=== PATIENT | male | born 1960 | race Caucasian/White ===

== ENCOUNTER → 2016-04-02 | Outpatient (CLI) | payer OTHER ==
[~2016-04-02] MED LIST: ASPI-232 PO; CETI10TA84 PO; DYZ PO; GLC500 PO; LISI-725 PO; METO1TAB69 PO; SIMV80TA2 PO
[2016-04-02 17:42] LABS: ALT/SGPT 31 U/L (12-78); BLOOD UREA NITROGEN 15 mg/dl (7-18); BUN/CREATININE RATIO 19.1 (10-20); CALCIUM 9.2 mg/dl (8.5-10.1); CARBON DIOXIDE 26 mmol/L (21-32); CHLORIDE 104 mmol/L (98-107); CHOLESTEROL 163 mg/dl (0-200); CREATININE 0.78 mg/dl (0.60-1.40); GLUCOSE 99 mg/dl (70-99); POTASSIUM 4.2 mmol/L (3.5-5.1); SODIUM 140 mmol/L (136-145); TRIGLYCERIDES 129 mg/dl (0-150); VERY LOW DENSITY LIPOPROT CALC 26 mg/dl
[2016-04-02 17:44] LABS: ALB/GLOB RATIO 1.4 (0.9-2); ALKALINE PHOSPHATASE 67 U/L (45-117); AST/SGOT 14 U/L (15-37); HDL CHOLESTEROL 55 mg/dl; LDL CHOLESTEROL CALCULATED 82 mg/dl
[2016-04-02 18:02] LABS: RATIO 11.4 mcg/mg (0-30.0)
[2016-04-03 06:12] LABS: ESTIMATED AVERAGE GLUCOSE 131 mg/dl; HA1C FLAG Normal (Normal)
== END | disposition home or self-care (01) ==
LOC: C.LABPVFM 12:59
PROVIDERS: ATTEND Family Medicine
DX: Z00.00 Encounter for general adult medical examination without abnormal findings (principal); Z12.11 Encounter for screening for malignant neoplasm of colon; I10 Essential (primary) hypertension; E78.5 Hyperlipidemia, unspecified; E11.9 Type 2 diabetes mellitus without complications; J30.9 Allergic rhinitis, unspecified

== ENCOUNTER → 2016-04-09 | Outpatient (CLI) | payer OTHER ==
--- NOTE | 2016-04-09 11:07 | DIAGNOSTIC IMAGING REPORT ---
RIGHT KNEE 3 VIEWS CLINICAL HISTORY: Bilateral knee [id number] Right pain COMPARISON: None. DISCUSSION: Considerable degenerative change all major joint spaces. This is particularly prominent involving the patellofemoral and medial joint compartment regions. Several synovial calcifications are present. There is a very small joint effusion. Mild degenerative changes lateral joint compartment. Mild reactive osteophytic change throughout all major joint compartments. There is no evidence for soft tissue swelling. IMPRESSION: Significant degenerative change primarily of the medial and patellofemoral joint compartments. Very small joint effusion. Electronically signed by: Fidencio Escobedo M.D. 04/09/2016 11:05 AM Dictated Date/Time: 04/09/2016 11:04 AM
--- NOTE | 2016-04-09 11:11 | DIAGNOSTIC IMAGING REPORT ---
KNEE 3 VIEWS left CLINICAL HISTORY: BILATERAL KNEE PAIN pain COMPARISON: None. DISCUSSION: Moderate degenerative change medial as well as patellofemoral joint compartments. Subtle cortical step-off medial tibial plateau at its extreme medial aspect. Margins are potentially sclerotic which may indicate old posttraumatic change. No significant joint effusion. No fat fluid level. There is no evidence for soft tissue swelling. IMPRESSION: 1. Small cortical step-off medial tibial plateau of indeterminate age. 2. Mild degenerative change medial and patellofemoral joint compartments. 3. If further evaluation is required from a clinical standpoint, CT study or MRI of the left knee is suggested Electronically signed by: Fidencio Escobedo M.D. 04/09/2016 11:09 AM Dictated Date/Time: 04/09/2016 11:06 AM
== END | disposition home or self-care (01) ==
LOC: C.RADPV 10:26
PROVIDERS: ATTEND Family Medicine
DX: M25.561 Pain in right knee (principal); M25.562 Pain in left knee

== ENCOUNTER → 2016-10-29 | Outpatient (CLI) | payer OTHER ==
[2016-10-29 12:37] LABS: ALT/SGPT 19 U/L (12-78); AST/SGOT 12 U/L (15-37); BLOOD UREA NITROGEN 14 mg/dl (7-18); BUN/CREATININE RATIO 16.6 (10-20); CALCIUM 8.8 mg/dl (8.5-10.1); CARBON DIOXIDE 27 mmol/L (21-32); CHLORIDE 110 mmol/L (98-107); CHOLESTEROL 202 mg/dl (0-200); CREATININE 0.85 mg/dl (0.60-1.40); GLUCOSE 100 mg/dl (70-99); POTASSIUM 4.2 mmol/L (3.5-5.1); SODIUM 142 mmol/L (136-145); TRIGLYCERIDES 141 mg/dl (0-150); VERY LOW DENSITY LIPOPROT CALC 28 mg/dl
[2016-10-29 12:44] LABS: ALB/GLOB RATIO 1.3 (0.9-2); ALKALINE PHOSPHATASE 64 U/L (45-117); CHOLESTEROL/HDL RATIO 4.2; HDL CHOLESTEROL 48 mg/dl; LDL CHOLESTEROL CALCULATED 126 mg/dl
[2016-10-29 12:58] LABS: ESTIMATED AVERAGE GLUCOSE 123 mg/dl; HA1C FLAG Normal (Normal)
== END | disposition home or self-care (01) ==
LOC: C.LABPVFM 09:59
PROVIDERS: ATTEND Family Medicine
DX: E78.5 Hyperlipidemia, unspecified (principal); E11.9 Type 2 diabetes mellitus without complications; I10 Essential (primary) hypertension

== ENCOUNTER → 2017-05-20 | Outpatient (CLI) | payer OTHER ==
[~2017-05-20] MED LIST changes: +METO100T44 PO; -METO1TAB69 PO
[2017-05-20 13:12] LABS: HEMOGLOBIN A1C 5.9 % (4.5-5.6)
[2017-05-20 13:48] LABS: ALBUMIN 3.8 gm/dl (3.4-5.0); ALT/SGPT 31 U/L (12-78); BLOOD UREA NITROGEN 18 mg/dl (7-18); CARBON DIOXIDE 28 mmol/L (21-32); CHOLESTEROL 204 mg/dl (0-200); CREATININE 0.83 mg/dl (0.60-1.40); GLUCOSE 105 mg/dl (70-99); POTASSIUM 4.1 mmol/L (3.5-5.1); SODIUM 139 mmol/L (136-145)
[2017-05-20 13:51] LABS: ALKALINE PHOSPHATASE 59 U/L (45-117); AST/SGOT 16 U/L (15-37); LDL CHOLESTEROL CALCULATED 119 mg/dl; TOTAL PROTEIN 6.5 gm/dl (6.4-8.2)
== END | disposition home or self-care (01) ==
LOC: C.LABPVFM 10:04
PROVIDERS: ATTEND Family Medicine
DX: I10 Essential (primary) hypertension (principal); E78.5 Hyperlipidemia, unspecified; E66.01 Morbid (severe) obesity due to excess calories; R73.01 Impaired fasting glucose; M25.561 Pain in right knee

== ENCOUNTER 2024-12-01 10:53 | Inpatient (IN) ==
[2024-12-01] MEDS ORDERED: CEFEPIME 2 GM VIAL IV ONE (11:22)
[2024-12-01] MEDS ORDERED: VANCOMYCIN CONSULT ACTIVE PRN (11:22)
--- NOTE | 2024-12-01 11:22 | Emergency Department Note ---
Impression & Plan ARACELI (acute kidney injury), Hypotension, Cellulitis of right leg, Sepsis ED Provider Note CHIEF COMPLAINT: Leg wound HISTORY OF PRESENTING ILLNESS: The patient is a 64-year-old male who arrives to the emergency department for evaluation of right leg redness, swelling, and drainage. The patient states he is having difficulty walking due to the pain in the leg. He reports the leg began weeping, which is new. He denies fever, chest pain, or shortness of breath. Patient states he lives at home alone, with minimal assistance from others. REVIEW OF SYSTEMS: See HPI for pertinent positives and pertinent negatives. ALLERGIES: See below MEDICATIONS: See below PAST MEDICAL HISTORY: See below PHYSICAL EXAM: VITALS: Vitals are noted on the nurse's note and reviewed by myself. Vital signs stable. GENERAL: 64-year-old male, in no acute distress, nondiaphoretic, unkempt. SKIN: Erythema, sloughing, edema, weeping noted from right lower extremity from toes, to just distal to the knee. Odorous. HEAD: Normocephalic atraumatic. HEART: Regular rate and rhythm without murmurs gallops or rubs. LUNGS: Clear to auscultation bilaterally without wheezes, rales or rhonchi. No retractions or accessory muscle use. MUSCULOSKELETAL: BLE, full ROM, full sensation intact to dull and sharp. DP pulse intact bilaterally. Strength 5/5. NEURO: Patient was alert and oriented to person place and time. No focal neurological deficits. DIFFERENTIAL DIAGNOSIS: Cellulitis, abscess, MRSA infection, DVT, necrotizing fasciitis, dermatitis, drug eruption, allergic reaction, as well as other pathologies. ED COURSE AND MEDICAL DECISION MAKING: HISTORY FROM INDEPENDENT HISTORIAN: Family member at bedside serving as secondary historian. MEDICATIONS GIVEN: 500 cc NSS bolus, 2 g IV cefepime, 2750 mg IV vancomycin MONITOR: Continuous quality assurance monitor: Order was placed for continuous quality assurance monitor. Patient was placed on the quality assurance monitor and continuous pulse ox. Patient was noted to be in normal sinus rhythm at an initial rate of 78 bpm per my interpretation. INTERPRETATION OF LABS: I interpreted the labs with full lab results as below in the lab section of this note. Pertinent lab results discussed in the MDM section below. INTERPRETATION OF IMAGING: Imaging studies were interpreted by myself and read by radiology as per the imaging section of this note. CHRONIC MEDICAL/SOCIAL CONDITIONS AFFECTING CARE: Type II DM MDM SUMMARY: The patient is a pleasant, 64-year-old male who arrives to the emergency department for evaluation of the above-stated complaint. Patient arrived hypotensive, with slight tachycardia, with concern for sepsis. Saline lock was established, sepsis workup was obtained. Lab work shows leukocytosis 15.69, hemoglobin 13.0, hematocrit 38.4. CMP shows slight hyponatremia, with elevation in BUN 88, creatinine 2.09 consistent with ARACELI. Glucose 185. BNP 14, magnesium 2.0, lactate 1.4, procalcitonin 0.32. IV fluid resuscitation administered, 500 cc bolus, due to concern for fluid volume overload, as patient is edematous in the lower extremities. 2 g IV cefepime administered, as well as IV vancomycin for broad-spectrum antimicrobial coverage. Chest x-ray imaging per my interpretation was obtained which shows no acute cardiopulmonary process, there is stable mild cardiomegaly without pulmonary vascular congestion. Tib- fib x-ray to rule out sign of osteomyelitis, or subcutaneous air shows no acute osseous findings. [facility] Dr. Curry, agreed to accept the patient under his services. Please refer to his documentation for further patient workup and care. DIAGNOSIS: Hypertension, ARACELI, sepsis, cellulitis of right leg The patient's case was discussed with Dr. Guzman, who agreed with my evaluation and treatment plan. I have personally spent greater than 30 minutes of critical care time in the direct management of this patient. This includes bedside care, interpretation of diagnostic studies, and testing, discussion with consultants, patient, and family members, and other required patient management activities. This 30 minutes is in excess of all separately billable procedures. The chart was completed utilizing [employer] Speech voice recognition software. Grammatical errors, random word insertions, pronoun errors, and incomplete sentences are an occasional consequence of this system due to software limitations, ambient noise, and hardware issues. Any formal questions or concerns about the content, text, or information contained within the body of this dictation should be directly addressed to the provider for clarification. 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 tract infection Elevated fasting glucose Surgical History Fracture closed, humerus Family History Sister Breast cancer Mother , in her 70s Diabetes Hypertension Father , in her 70s Diabetes Hypertension Myocardial infarction Denies family history of Ovarian cancer Prostate cancer Colorectal cancer Stroke Social History Smoking Status: Never smoker Second Hand Exposure: Yes; Do You Dip or Chew Tobacco: No; Hx Alcohol Use: No Hx Substance Use: No Preferred Language: Kiswahili Communication Ability: Effective Inventory Analyst Required: No Beliefs That Will Affect Care: None marital status: Single Current Living Situation: Alone Current Living Situation Comment: Alone current occupational status: employed 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 How many Children do You have: 0 Other Information That Helps Us Care for You: No Feels Safe at Home: Yes Safety Concerns: Feels Safe At This Time Childhood Exposure to Second-Hand Smoke: No Diet: regular caffeine: Yes (coffee) Dental Care, Regularly: No Physical Activity Frequency: Daily Seatbelt Use: always Sunscreen Use: No Assistive Devices: Cane Allergies Allergies Allergy/AdvReac Type Severity Reaction Status Date / Time No Known Drug Allergies Allergy Verified 10/28/24 11:07 Home Meds Home Medications Medication Instructions Recorded Confirmed aspirin 81 mg tablet,delayed 81 mg PO DAILY 12/06/18 12/01/24 release cholecalciferol (vitamin D3) 125 125 mcg PO DAILY 06/19/20 12/01/24 mcg (5,000 unit) capsule Previous Rx's Medication Instructions Recorded coenzyme Q10 400 mg capsule (Co 400 mg PO DAILY #90 caps 06/11/21 Q-10) lisinopril 20 mg tablet 20 mg PO DAILY #90 tabs 03/18/24 metformin 500 mg tablet,extended 500 mg PO DAILY 90 days #90 tabs 03/18/24 release 24 hr atorvastatin 40 mg tablet 40 mg PO DAILY #90 tabs 04/19/24 metoprolol succinate 100 mg 100 mg PO DAILY #90 tabs 04/19/24 tablet,extended release 24 hr triamterene 37.5 1 cap PO DAILY #90 caps 04/19/24 mg-hydrochlorothiazide 25 mg capsule prednisone 20 mg tablet See Rx Instructions PO DAILY #30 11/03/24 tabs Results & Data (ED) Vital Signs Vital Signs - 24 hr 12/01/24 10:58 12/01/24 11:15 Temperature 36.4 C Temperature Source Oral Pulse Rate 78 Pulse Rate [Apical] 78 Pulse Rhythm [Apical] Regular Pulse Strength [Apical] Normal Respiratory Rate 18 21 Respiratory Effort / Characteristics Non-Labored Spontaneous Non-Labored Spontaneous Respiratory Depth Normal Normal Respiratory Pattern Regular Regular Blood Pressure 93/66 L Blood Pressure [Right Arm] 100/75 Blood Pressure Mean 75 Blood Pressure Mean [Right Arm] 83 Blood Pressure Position [Right Arm] Lying Pulse Oximetry 99 97 Oxygen Delivery Method Room Air Room Air Sepsis Recent Fever Within 48 Hours No Sepsis New/Unexplained Change in Mental Status N/A Sepsis Action Taken by Nursing No Action Required Home Medications Current Medication List: was personally reviewed by me Laboratory Data Attestation: I reviewed the patient's lab results. 12/02/24 05:41 12/03/24 05:49 Lab Results 12/01/24 12/01/24 Range/Units 11:30 12:55 WBC 15.69 H (4.8-10.8) K/ul RBC 4.54 L (4.70-6.10) M/uL Hgb 13.0 L (14.0-18.0) g/dl Hct 38.4 L (42.0-52.0) % MCV 84.6 (80.0-100.0) fL MCH 28.6 (25.0-34.0) pg MCHC 33.9 (32.0-36.0) g/dL RDW Std Deviation 46.1 (36.4-46.3) fL RDW Coeff of Yoli 14.9 H (11.5-14.5) % Plt Count 453 H (130-400) K/uL MPV 9.4 (9.4-12.4) fL Neutrophils % (Manual) 77 % Lymphocytes % (Manual) 10 % Monocytes % (Manual) 3 % Eosinophils % (Manual) 2 % Basophils % (Manual) 1 % Metamyelocytes % (Man) 4 % Myelocytes % (Man) 3 % Neutrophils # (Manual) 12.08 H (1.40-6.50) K/uL Total Absolute Neuts 12.08 H (1.4-6.5) K/uL Lymphocytes # (Manual) 1.57 (1.2-3.4) K/uL Total Abs Lymphocytes 1.57 (1.2-3.4) K/uL Monocytes # (Manual) 0.47 (0.11-0.59) K/uL Eosinophils # (Manual) 0.31 (0-0.50) K/uL Basophils # (Manual) 0.16 (0-0.2) K/uL Metamyelocytes # (Man) 0.63 H (0-0) K/uL Myelocytes # (Manual) 0.47 H (0-0) K/uL Polychromasia 1+ Acanthocytes (Spur) 2+ VBG pH 7.32 L (7.36-7.41) VBG pCO2 42 (38-50) mmHg VBG pO2 < 20 mmHg VBG HCO3 22 mmol/L VBG O2 Saturation < 60.0 % VBG Base Excess -4.3 mEq/L Sodium 131 L (136-145) mmol/L Potassium 4.9 (3.5-5.1) mmol/L Chloride 98 (98-107) mmol/L Carbon Dioxide 22 (21-32) mmol/L Anion Gap 11 (3-11) BUN 88 H (6-23) mg/dl Creatinine 2.09 H (0.6-1.4) mg/dl Est Cr Clr Drug Dosing 52.2 ml/min eGFR 34.27 BUN/Creatinine Ratio 42.1 H (10-20) Glucose 185 H (70-99(Fasting)) mg/dl Lactate 1.4 1.1 (0.4-2.0) mmol/L Calcium 9.2 (8.6-10.3) mg/dl Magnesium 2.0 (1.7-2.4) mg/dl Total Bilirubin 0.8 (0.2-1.0) mg/dl Direct Bilirubin 0.2 (0-0.2) mg/dl AST 25 (13-39) U/L ALT 55 H (7-52) U/L Alkaline Phosphatase 94 (34-104) U/L B-Natriuretic Peptide 14 (0-100) pg/ml Total Protein 6.8 (6.0-8.3) gm/dl Albumin 3.4 (3.4-5.0) gm/dl Procalcitonin 0.32 (0-0.5) ng/ml Random Cortisol 27.15 mcg/dl Administered Medications Aspirin (Aspirin 81 Mg Ectab) 81 mg PO DAILY [facility] Stop: 01/01/25 08:59 Last Admin: 12/03/24 08:20 Dose: 81 mg Documented By: Admin: 12/02/24 07:50 Dose: 81 mg Documented By: MERLINE Carbamide Peroxide (Carbamide Peroxide 6.5% 15 Ml Btl) 5 drops OTB BID ABDIRAHMAN Stop: 12/08/24 09:14 Last Admin: 12/03/24 10:02 Dose: 5 drops Documented By: JULIANNE Daptomycin 700 mg/ Syringe 14 mls @ 7 mls/min IV Q24H [facility]; Protocol Stop: 12/08/24 20:59 Last Admin: 12/02/24 20:41 Dose: 7 mls/min Documented By: Admin: 12/01/24 20:26 Dose: 7 mls/min Documented By: EKTA Heparin Sodium/Dextrose (Heparin 25529 Unit/500 Ml D5w) 25,000 units in 500 mls @ 35 mls/hr IV .[id number] [facility]; Protocol Stop: 12/31/24 16:29 Last Admin: 12/03/24 10:58 Dose: 1,750 units/hr, 35 mls/hr Documented By: JULIANNE Co-signed By: BLAIRE Titration: 12/03/24 10:58 Dose: Infused Documented By: JULIANNE Co-signed By: BLAIRE Titration: 12/03/24 06:55 Dose: 1,750 units/hr, 35 mls/hr Documented By: PAPO Co-signed By: JULIANNE Admin: 12/02/24 20:40 Dose: 1,750 units/hr, 35 mls/hr Documented By: PAPO Co-signed By: HARMEET Titration: 12/02/24 20:40 Dose: Infused Documented By: PAPO Co-signed By: HARMEET Titration: 12/02/24 19:08 Dose: 1,750 units/hr, 35 mls/hr Documented By: MERLINE Co-signed By: PAPO Titration: 12/02/24 16:00 Dose: 1,750 units/hr, 35 mls/hr Documented By: MERLINE Co-signed By: BLAIRE Titration: 12/02/24 08:48 Dose: 1,750 units/hr, 35 mls/hr Documented By: MERLINE Co-signed By: KORINA Admin: 12/02/24 06:58 Dose: 1,850 units/hr, 37 mls/hr Documented By: JAVON Co-signed By: MERLINE Titration: 12/02/24 06:41 Dose: Infused Documented By: JAVON Co-signed By: MERLINE Admin: 12/01/24 17:10 Dose: 1,850 units/hr, 37 mls/hr Documented By: Co-signed By: BLAIRE Cefepime HCl (Maxipime 2000mg) 2,000 mg in 20 mls @ 5 mls/min IV Q8H ABDIRAHMAN Stop: 12/09/24 15:59 Last Admin: 12/03/24 08:20 Dose: 5 mls/min Documented By: Admin: 12/02/24 23:54 Dose: 5 mls/min Documented By: Admin: 12/02/24 16:39 Dose: 5 mls/min Documented By: MERLINE Insulin Aspart (Insulin Aspart Per Unit Charge) 0 units SC ACHS ABDIRAHMAN Stop: 12/31/24 16:29 Last Admin: 12/03/24 12:32 Dose: 6 units Documented By: JULIANNE Co-signed By: FRANCIE Admin: 12/03/24 08:19 Dose: 3 units Documented By: JULIANNE Co-signed By: BLAIRE Admin: 12/02/24 20:40 Dose: 1 units Documented By: PAPO Co-signed By: HARMEET Admin: 12/02/24 17:27 Dose: 7 units Documented By: MERLINE Co-signed By: BLAIRE Admin: 12/02/24 12:11 Dose: 6 units Documented By: MERLINE Co-signed By: BLAIRE Admin: 12/02/24 07:55 Dose: 6 units Documented By: MERLINE Co-signed By: RAZA Admin: 12/01/24 20:26 Dose: Not Given Documented By: Admin: 12/01/24 17:57 Dose: 4 units Documented By: Co-signed By: RAZA Insulin Glargine (Lantus Per Unit Charge) 8 units SQ BID ABDIRAHMAN Stop: 12/31/24 20:59 Last Admin: 12/03/24 08:20 Dose: 8 units Documented By: JULIANNE Co-signed By: BLAIRE Admin: 12/02/24 20:40 Dose: 8 units Documented By: PAPO Co-signed By: HARMEET Admin: 12/02/24 07:56 Dose: 8 units Documented By: MERLINE Co-signed By: RAZA Admin: 12/01/24 20:18 Dose: 8 units Documented By: EKTA Co-signed By: VIRGILIO Miconazole Nitrate (Miconazole Nitrate Powder 85 Gm) 1 appln EXT TID ABDIRAHMAN Stop: 01/01/25 08:59 Last Admin: 12/03/24 12:32 Dose: 1 appln Documented By: Admin: 12/03/24 08:21 Dose: 1 appln Documented By: Admin: 12/02/24 20:42 Dose: 1 appln Documented By: Admin: 12/02/24 16:39 Dose: 1 appln Documented By: Admin: 12/02/24 10:31 Dose: 1 appln Documented By: MICHAEL Discontinued Medications Heparin Sodium/Dextrose (Heparin Iv Adult Wt-Based Standard *No* Initial Bolus Protocol) 1 each IV ONE STA; Protocol Stop: 12/01/24 16:31 Last Admin: 12/01/24 17:06 Dose: 1 each Documented By: Sodium Chloride (Nss) 500 mls @ 999 mls/hr IV .Q31M ABDIRAHMAN Stop: 12/01/24 12:00 Last Infusion: 12/01/24 12:26 Dose: Infused Documented By: Admin: 12/01/24 11:46 Dose: 999 mls/hr Documented By: MARIFER Vancomycin HCl 2,750 mg/ (Sodium Chloride) 555 mls @ 200 mls/hr IV NOW ONE Stop: 12/01/24 14:08 Last Infusion: 12/01/24 16:52 Dose: Infused Documented By: Admin: 12/01/24 12:16 Dose: 200 mls/hr Documented By: JAS Cefepime HCl (Maxipime 2000mg) 2,000 mg in 20 mls @ 5 mls/min IV ONE ONE Stop: 12/01/24 11:48 Last Admin: 12/01/24 11:46 Dose: 5 mls/min Documented By: MPD Sodium Chloride (Nss) 1,000 mls @ 999 mls/hr IV .Q1H1M ONE Stop: 12/01/24 13:54 Last Infusion: 12/01/24 14:21 Dose: Infused Documented By: Admin: 12/01/24 13:14 Dose: 999 mls/hr Documented By: MPD Sodium Chloride (Nss) 1,000 mls @ 125 mls/hr IV .Q8H [facility] Stop: 12/04/24 14:14 Last Infusion: 12/02/24 13:59 Dose: Infused Documented By: Admin: 12/02/24 06:58 Dose: 125 mls/hr Documented By: Infusion: 12/02/24 06:58 Dose: Infused Documented By: DLMary Admin: 12/01/24 23:11 Dose: 125 mls/hr Documented By: Infusion: 12/01/24 22:18 Dose: Infused Documented By: Admin: 12/01/24 14:18 Dose: 125 mls/hr Documented By: MPD Sodium Chloride (Nss) 1,000 mls @ 999 mls/hr IV .Q1H1M ONE Stop: 12/01/24 16:10 Last Admin: 12/01/24 19:26 Dose: Not Given Documented By: EKTA Ceftriaxone Sodium (Rocephin) 2,000 mg in 50 mls @ 100 mls/hr IV Q24H [facility] Stop: 12/08/24 17:59 Last Infusion: 12/01/24 19:59 Dose: Infused Documented By: Admin: 12/01/24 19:30 Dose: 100 mls/hr Documented By: EKTA Sodium Chloride (Nss) 1,000 mls @ 999 mls/hr IV .Q1H1M ONE Stop: 12/01/24 20:21 Last Infusion: 12/01/24 20:32 Dose: Infused Documented By: Admin: 12/01/24 19:26 Dose: 999 mls/hr Documented By: EKTA Influenza Virus Vacc Triv Types A&B (Influenza Vacc Sa5007-35(65y+)/Pf (Iiv3) 0.5ml Syr) 0.5 ml IM .ONCE ONE Stop: 12/02/24 16:51 Last Admin: 12/03/24 09:29 Dose: Not Given Documented By: KTS Sodium Chloride (Sodium Chloride 0.65% Na Soln 45 Ml ([place])) Confirm Administered Dose 225 sprays .ROUTE .STK-MED ONE Stop: 12/02/24 12:10 Last Admin: 12/02/24 12:12 Dose: 225 sprays Documented By: MERLINE Imaging Data Attestation: I personally reviewed and interpreted this imaging study as follows: Discharge Plan Visit Data Chief Complaint: Leg Injury/Pain Stated Complaint: TROUBLE WALKING, WOUND ON R LEG ED Provider: Pavel Guzman ED Midlevel Provider: Cristiane Parmar Discharge Problem: ARACELI (acute kidney injury), Hypotension, Cellulitis of right leg, Sepsis Patient Disposition: Admitted As Inpatient Condition: Critical Discharge Instructions Interventions: ED Discharge Assessment Last Done: 12/01/24 16:06
[2024-12-01] MEDS: CEFEPIME 2000MG 2,000 MG/20 ML SYR IV ONE (11:46)
[2024-12-01] MEDS: SODIUM CHLORIDE 0.9% 500 ML IV SCH (11:46)
[2024-12-01 11:54] LABS: Hematocrit (blood only) 38.4 % (42.0-52.0); Hemoglobin 13.0 g/dl (14.0-18.0); Mean Corpuscular Hemoglobin 28.6 pg (25.0-34.0); Mean Corpuscular Volume 84.6 fL (80.0-100.0); Platelet Count 453 K/uL (130-400); RDW Standard Deviation 46.1 fL (36.4-46.3); Red Blood Count 4.54 M/uL (4.70-6.10); White Blood Count 15.69 K/ul (4.8-10.8)
--- NOTE | 2024-12-01 12:14 | XRay Report ---
XR tibia fibula RT 2V CLINICAL HISTORY: infection COMPARISON: None FINDINGS: There is moderate osteoarthritis at the right knee and mild osteoarthritis at the right an kle. No fracture or dislocation seen at the right tibia or fibula. There are a few small soft tissue calcifications. No radiopaque foreign body seen. No evidence of osteomyelitis. IMPRESSION: No acute osseous findings. ACT 112: Negative or not required by law. Electronically signed by: Kentrell Schneider M.D. 12/01/2024 12:13 PM
[2024-12-01] MEDS: VANCOMYCIN HCL 2,750 MG in SODIUM CHLORIDE 0.9% 500 ML IV ONE (12:16)
--- NOTE | 2024-12-01 12:16 | XRay Report ---
XR chest 1V portable CLINICAL HISTORY: Sepsis COMPARISON STUDY: 06/25/2008 FINDINGS: Stable mild cardiomegaly without pulmonary vascular congestion. No consolidation or pleural effusion. No pneumothorax. IMPRESSION: No acute findings. ACT 112: Negative or not required by law. Electronically signed by: Kentrell Schneider M.D. 12/01/2024 12:15 PM
[2024-12-01 12:19] LABS: ALC (manual) 1.57 K/uL (1.2-3.4); ANC (manual) 12.08 K/uL (1.4-6.5); Acanthocytes 2+; Polychromasia 1+
[2024-12-01 12:30] LABS: Alanine Aminotransferase 55.0 U/L (7-52); Albumin Level 3.4 gm/dl (3.4-5.0); Alkaline Phosphatase 94.0 U/L (34-104); Anion Gap 11.0 (3-11); Bilirubin,Total 0.8 mg/dl (0.2-1.0); Blood Urea Nitrogen 88.0 mg/dl (6-23); Calcium 9.2 mg/dl (8.6-10.3); Carbon Dioxide 22.0 mmol/L (21-32); Chloride 98.0 mmol/L (98-107); Creatinine Clr Calc Pharmacy 52.2 ml/min; Glucose 185.0 mg/dl (70-99(Fasting)); Magnesium 2.0 mg/dl (1.7-2.4); Potassium 4.9 mmol/L (3.5-5.1); Sodium 131.0 mmol/L (136-145); Total Protein 6.8 gm/dl (6.0-8.3)
--- NOTE | 2024-12-01 12:55 | History & Physical Report ---
Date of Service December 01, 2024 Assessment & Plan (1) Cellulitis of right leg: (2) Sepsis: (3) ATN (acute tubular necrosis): (4) ARACELI (acute kidney injury): (5) Hyperlipidemia: (6) Diabetes mellitus type 2, uncontrolled: (7) Essential hypertension: (8) Obesity, Class III, BMI 40-49.9 (morbid obesity): (9) Acute deep vein thrombosis of right lower extremity: (10) Hypotension: Plan 64yo male with history of T2DM, hyperlipidemia, HTN, and morbid obesity presents with several weeks of his "right leg leaking" as well as worsening edema. This was followed by the development of erythema of the distal right leg from just below the right knee down to the right foot. He also developed poor appetite, weakness, and simply feeling poorly. #RLE cellulitis - present on admission - -with resulting sepsis -s/p IV cefepime & vancomycin in ER -will continue IV abx in the form of rocephin & daptomycin -follow blood cultures -CT RLE obtained to r/o nec fasc & abscess - negative for both issues -follow wound cx -wound care consult for open ulcers; in meantime - optifoam dressings -tylenol as needed for pain control -elevate leg when in bed #sepsis/severe sepsis - present on admission - -s/p 2.5+ liters of isotonic saline in the ER for hypotension with improvement in BPs -cortisol level >20 (random) -blood cx's sent -source of sepsis - severe RLE cellulitis -broad-spectrum IV antibiotics -generous maintenance fluids (125ml/hr NS) following the fluid boluses -lactates x 2 wnl -hold all BP meds from home due to hypotension, ARACELI, etc. #hypotension - -2nd to sepsis/severe sepsis -s/p multiple fluid boluses -cortisol level wnl -holding all BP meds from home -no evidence of cardiogenic component -although he has a RLE DVT he does not have signs of obstructive shock from PEs -if BPs remain refractory may need transfer to ICU for pressors -cont generous IV fluids #ARACELI 2nd to sepsis-associated ATN - -creatinine at presentation 2 -continue IV fluid resuscitation -recheck BMP later tonight then in am tomorrow -follow UOP carefully -if creatinine worsens then check renal u/s to r/o obstruction but I am not suspicious for such -hold lisinopril and HCTZ #diabetes mellitus - -a1c 6.5% in June 2024 -hold metformin -BSGs ac/hs -add lantus 8 units BID -add novolog ac/hs -recheck a1c am #morbid obesity - BMI 40.7 #HTN - -due to hypotension hold all anti-hypertensives at this time #DVT of RLE - -single DVT of gastrocnemius vein -start heparin drip standard dosing -no clinical evidence of PE(s) -risk factors - sedentary lifestyle, inflammation of RLE, etc. #recent right shoulder bursitis - -per patient had steroid injection in shoulder several weeks ago -then, it appears he took a prednisone course this month -fortunately cortisol level is satisfactory for now will need PT/OT evals while here History of Present Illness Chief Complaint: right leg redness and leaking Primary Care Provider: Ross Smith, 64yo male with history of T2DM, hyperlipidemia, HTN, and morbid obesity presents with several weeks of his "right leg leaking" as well as worsening edema. Then, about 2-3 days ago, he began to feel poorly with decreased appetite and weakness. The right leg began to turn red during the last few days and the leg was tender with walking. The redness starts just below the right knee and extends down to the right foot. The leaking of fluid has continued as well. Denies any fevers but has had rigors today. Upon ER presentation today his systolic BP was low in the 80s. Allergies Allergy/AdvReac Type Severity Reaction Status Date / Time No Known Drug Allergies Allergy Verified 10/28/24 11:07 Home Medications Medication Instructions Recorded Confirmed Type aspirin 81 mg tablet,delayed 81 mg PO DAILY 12/06/18 12/01/24 History release cholecalciferol (vitamin D3) 125 125 mcg PO DAILY 06/19/20 12/01/24 History mcg (5,000 unit) capsule coenzyme Q10 400 mg capsule (Co 400 mg PO DAILY #90 caps 06/11/21 12/01/24 Rx Q-10) lisinopril 20 mg tablet 20 mg PO DAILY #90 tabs 03/18/24 12/01/24 Rx metformin 500 mg tablet,extended 500 mg PO DAILY 90 days #90 tabs 03/18/24 12/01/24 Rx release 24 hr atorvastatin 40 mg tablet 40 mg PO DAILY #90 tabs 04/19/24 12/01/24 Rx metoprolol succinate 100 mg 100 mg PO DAILY #90 tabs 04/19/24 12/01/24 Rx tablet,extended release 24 hr triamterene 37.5 1 cap PO DAILY #90 caps 04/19/24 12/01/24 Rx mg-hydrochlorothiazide 25 mg capsule prednisone 20 mg tablet See Rx Instructions PO DAILY #30 11/03/24 12/01/24 Rx tabs Past Med/Surg History Problem List (Updated 12/01/24 @ 21:05 by Aiden Curry MD) Hypotension Acute deep vein thrombosis of right lower extremity ARACELI (acute kidney injury) ATN (acute tubular necrosis) Sepsis Cellulitis of right leg Neck pain on right side Right anterior shoulder pain Irregular heart beat Medical History (Updated 12/01/24 @ 21:05 by Aiden Curry MD) Essential hypertension Diabetes mellitus type 2, uncontrolled Obesity, Class III, 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: No Beliefs That Will Affect Care: None marital status: Single Current Living Situation: Alone Current Living Situation Comment: Alone current occupational status: employed 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 How many Children do You have: 0 Other Information That Helps Us Care for You: No Feels Safe at Home: Yes Safety Concerns: Feels Safe At This Time Childhood Exposure to Second-Hand Smoke: No Diet: regular caffeine: Yes (coffee) Dental Care, Regularly: No Physical Activity Frequency: Daily Seatbelt Use: always Sunscreen Use: No Assistive Devices: Cane Review of Systems 2 Review of Systems: gen - no fevers but +rigors and loss of appetite for 2-3 days eyes - no ocular complaints HENT - no URI symptoms; left ear pain CV - no chest pain; no chronic edema of legs, but having edema of RLE for several days/weeks pulm - no dyspnea or VIERA; no cough GI - no abd pain or nausea/emesis; no blood per rectum - no LUTs musculo - RLE pain and tenderness; chronic b/l knee pain; just had injection in right shoulder by [facility] about 3-4 weeks ago for ?bursitis skin - worsening redness of RLE; chronic rash of b/l shins neuro - no headaches endo - states he does not check his BSGs - glucometer is not functioning Physical Exam 2 Physical Exam: gen - appears ill but nontoxic, awake/alert; obese eyes - PERRL HENT - b/l cerumen impaction; MM dry; poor dentition neck - no JVD, no lymph nodes, no goiter heart - RRR, s1 s2, no murmur; heart tones distant lungs - CTA b/l abd - soft NT ND BS+; no HSM ext - 3+ pitting edema of the right foot and extending to the knee; trace edema left vivar/foot vascular - pulses b/l feet 2+ skin - extensive erythematous cellulitis of RLE extending from the right foot to just inferior to the right knee; there are multiple areas of open skin/ulceration; no crepitus; no abscess musculo - right knee - active ROM without pain/tenderness; wearing knee brace on left psych - a/o x 3 neuro - strength 5/5 x 4 exts Results & Data Results & Data Vital Signs (Past 12 Hours) Vital Signs Temp Pulse Pulse Resp BP BP Pulse Ox 12/01/24 12:45 73 21 93/64 L 98 12/01/24 12:30 70 20 93/64 L 98 12/01/24 12:15 73 21 89/62 L 96 12/01/24 12:06 71 12/01/24 12:01 70 21 82/60 L 97 12/01/24 11:46 72 21 82/52 L 98 12/01/24 11:35 72 19 87/64 L 98 12/01/24 11:35 72 19 98 12/01/24 11:22 74 15 100/75 98 12/01/24 11:15 78 21 100/75 97 12/01/24 10:58 36.4 C 78 18 93/66 L 99 O2 Del Method 12/01/24 12:45 Room Air 12/01/24 12:30 Room Air 12/01/24 12:15 Room Air 12/01/24 12:06 12/01/24 12:01 Room Air 12/01/24 11:46 Room Air 12/01/24 11:35 Room Air 12/01/24 11:35 Room Air 12/01/24 11:22 Room Air 12/01/24 11:15 Room Air 12/01/24 10:58 Room Air Laboratory Results Laboratory Results - last 24 hr 12/01/24 12/01/24 11:30 12:55 WBC 15.69 H RBC 4.54 L Hgb 13.0 L Hct 38.4 L MCV 84.6 MCH 28.6 MCHC 33.9 RDW Std Deviation 46.1 RDW Coeff of Yoli 14.9 H Plt Count 453 H MPV 9.4 Neutrophils % (Manual) 77 Lymphocytes % (Manual) 10 Monocytes % (Manual) 3 Eosinophils % (Manual) 2 Basophils % (Manual) 1 Metamyelocytes % (Man) 4 Myelocytes % (Man) 3 Neutrophils # (Manual) 12.08 H Total Absolute Neuts 12.08 H Lymphocytes # (Manual) 1.57 Total Abs Lymphocytes 1.57 Monocytes # (Manual) 0.47 Eosinophils # (Manual) 0.31 Basophils # (Manual) 0.16 Metamyelocytes # (Man) 0.63 H Myelocytes # (Manual) 0.47 H Polychromasia 1+ Acanthocytes (Spur) 2+ VBG pH 7.32 L VBG pCO2 42 VBG pO2 < 20 VBG HCO3 22 VBG O2 Saturation < 60.0 VBG Base Excess -4.3 Sodium 131 L Potassium 4.9 Chloride 98 Carbon Dioxide 22 Anion Gap 11 BUN 88 H Creatinine 2.09 H Est Cr Clr Drug Dosing 52.2 eGFR 34.27 BUN/Creatinine Ratio 42.1 H Glucose 185 H Lactate 1.4 1.1 Calcium 9.2 Magnesium 2.0 Total Bilirubin 0.8 Direct Bilirubin 0.2 AST 25 ALT 55 H Alkaline Phosphatase 94 B-Natriuretic Peptide 14 Total Protein 6.8 Albumin 3.4 Procalcitonin 0.32 Diagnostic Findings Chest X-Ray 12/01/24 11:16 XR chest 1V portable CLINICAL HISTORY: Sepsis COMPARISON STUDY: 06/25/2008 FINDINGS: Stable mild cardiomegaly without pulmonary vascular congestion. No consolidation or pleural effusion. No pneumothorax. IMPRESSION: No acute findings. ACT 112: Negative or not required by law. Electronically signed by: Kentrell Schneider M.D. 12/01/2024 12:15 PM Tibia/Fibula X-Ray 12/01/24 11:23 XR tibia fibula RT 2V CLINICAL HISTORY: infection COMPARISON: None FINDINGS: There is moderate osteoarthritis at the right knee and mild osteoarthritis at the right ankle. No fracture or dislocation seen at the right tibia or fibula. There are a few small soft tissue calcifications. No radiopaque foreign body seen. No evidence of osteomyelitis. IMPRESSION: No acute osseous findings. ACT 112: Negative or not required by law. Electronically signed by: Kentrell Schneider M.D. 12/01/2024 12:[address] 12/01/24 14:19 CT tib/fib RT wo con HISTORY: 64 years-old Male severe cellulitis RLE; r/o nec fasc, abscess acute pain and swelling of the right lower leg with reported cellulitis COMPARISON: Right tibia and fibula radiographs of same day TECHNIQUE: Multiple axial CT images of the right tibia and fibula were obtained without IV contrast. A dose lowering technique was used consistent with the principals of ALARA. FINDINGS: Moderate to severe osteoarthritis of the knee with moderate osteoarthritis of the ankle. Partially imaged calcifications/loose bodies along the medial aspect of the knee extending into a complex Nolen's cyst. No acute fracture, dislocation, osseous erosion or destructive bone lesion identified. Tendons and ligaments are not well evaluated by CT technique. Partially imaged joint effusion of the knee. Superficial venous varicosities. Marked atrophy of the gastrocnemius musculature. Arterial calcifications. Moderate to extensive subcutaneous edema with cutaneous thickening. Scattered subcutaneous calcifications. No discrete fluid collection. Multifocal probable tendinosis of the ankle. IMPRESSION: 1. No acute osseous abnormality. 2. Nonspecific subcutaneous edema with dermal thickening. Differential considerations include cellulitis, venous stasis or lymphedema. 3. No fluid collection to suggest abscess. 4. Atrophy of the gastrocnemius musculature. ACT 112: Negative or not required by law. The above report was generated using voice recognition software. It may contain grammatical, syntax or spelling errors. Electronically signed by: Rahat Orellana M.D. 12/01/2024 3:04 PM Venous Doppler Study 12/01/24 14:19 US venous doppler LE RT HISTORY: severe edema RLE; r/o DVT COMPARISON: None TECHNIQUE: Multiple real-time sonographic images of the right lower extremity deep venous structures were obtained assessing grayscale appearance, color and spectral flow. FINDINGS: There is thrombus in the right gastrocnemius vein measuring 8 cm in length. No DVT seen at the right lower extremity otherwise. IMPRESSION: 1. Thrombus in the right gastrocnemius vein. 2. No DVT seen at the right lower extremity otherwise. ACT 112: Negative or not required by law. The above report was generated using voice recognition software. It may contain grammatical, syntax or spelling errors. Electronically signed by: Kentrell Schneider M.D. 12/01/2024 3:39 PM Code Status & VTE Plan Code Status full code PG Care Time/CCT Total # of Minutes Spent Total Time Spent with Patient: Total time spent is greater than 50% in coordination of care (as documented) at patient's floor/unit and/or counseling patient: Coding Level of Care Code 04725 INT INP/OBS CARE 3/75MIN Diagnoses Cellulitis of right leg L03.115 Sepsis A41.9 ATN (acute tubular necrosis) N17.0 ARACELI (acute kidney injury) N17.9 Hyperlipidemia E78.5 Diabetes mellitus type 2, uncontrolled Essential hypertension I10 Obesity, Class III, BMI 40-49.9 (morbid obesity) E66.01 Acute deep vein thrombosis of right lower extremity I82.401 Hypotension I95.9
[2024-12-01 13:06] LABS: Base Excess VBG -4.3 mEq/L; HCO3 VBG 22 mmol/L; Oxygen Saturation VBG < 60.0 %; PCO2 VBG 42 mmHg (38-50); PO2 VBG < 20 mmHg; pH VBG 7.32 (7.36-7.41)
[2024-12-01] MEDS: SODIUM CHLORIDE 0.9% 1,000 ML IV ONE ×3 (13:14→19:26)
[2024-12-01] MEDS: SODIUM CHLORIDE 0.9% 1,000 ML IV SCH (14:18)
--- NOTE | 2024-12-01 15:05 | CT Scan Report ---
CT tib/fib RT wo con HISTORY: 64 years-old Male severe cellulitis RLE; r/o nec fasc, abscess acute pain and swelling of t he right lower leg with reported cellulitis COMPARISON: Right tibia and fibula radiographs of same day TECHNIQUE: Multiple axial CT images of the right tibia and fibula were obtained without IV contrast. A dose lowering technique was used consistent with the principals of VON. FINDINGS: Moderate to severe osteoarthritis of the knee with moderate osteoarthritis of the ankle. Partially im aged calcifications/loose bodies along the medial aspect of the knee extending into a complex Nolen's cyst. No acute fracture, dislocation, osseous erosion or destructive bone lesion identified. Tendons and ligaments are not well evaluated by CT technique. Partially imaged joint effusion of the knee. Superficial venous varicosities. Marked atrophy of the gastrocnemius musculature. Arterial calc ifications. Moderate to extensive subcutaneous edema with cutaneous thickening. Scattered subcutaneou s calcifications. No discrete fluid collection. Multifocal probable tendinosis of the ankle. IMPRESSION: 1. No acute osseous abnormality. 2. Nonspecific subcutaneous edema with dermal thickening. Differential considerations include celluli tis, venous stasis or lymphedema. 3. No fluid collection to suggest abscess. 4. Atrophy of the gastrocnemius musculature. ACT 112: Negative or not required by law. The above report was generated using voice recognition software. It may contain grammatical, syntax o r spelling errors. Electronically signed by: Rahat Orellana M.D. 12/01/2024 3:04 PM
--- NOTE | 2024-12-01 15:40 | Ultrasound Report ---
US venous doppler LE RT HISTORY: severe edema RLE; r/o DVT COMPARISON: None TECHNIQUE: Multiple real-time sonographic images of the right lower extremity deep venous structures were obtained assessing grayscale appearance, color and spectral flow. FINDINGS: There is thrombus in the right gastrocnemius vein measuring 8 cm in length. No DVT seen at the right lower extremity otherwise. IMPRESSION: 1. Thrombus in the right gastrocnemius vein. 2. No DVT seen at the right lower extremity otherwise. ACT 112: Negative or not required by law. The above report was generated using voice recognition software. It may contain grammatical, syntax o r spelling errors. Electronically signed by: Kentrell Schneider M.D. 12/01/2024 3:39 PM
[2024-12-01] MEDS: Heparin IV Adult Wt-Based Standard *NO* INITIAL Bolus Protocol IV STA (17:06)
[2024-12-01] MEDS: HEPARIN 25000 UNIT/500 ML D5W 25,000 UNITS/500 ML BAG IV SCH (17:10)
[2024-12-01] MEDS: INSULIN ASPART PER UNIT CHARGE SC SCH (17:57)
[2024-12-01] MEDS: cefTRIAXone SODIUM 2,000 MG/50 ML BAG IV SCH (19:30)
[2024-12-01 20:16] LABS: Anion Gap 10.0 (3-11); Blood Urea Nitrogen 77.0 mg/dl (6-23); Calcium 8.4 mg/dl (8.6-10.3); Carbon Dioxide 21.0 mmol/L (21-32); Chloride 105.0 mmol/L (98-107); Creatinine Clr Calc Pharmacy 76.3 ml/min; Glucose 165.0 mg/dl (70-99(Fasting)); Potassium 4.4 mmol/L (3.5-5.1); Sodium 136.0 mmol/L (136-145)
[2024-12-01] MEDS: LANTUS PER UNIT CHARGE SQ SCH (20:18)
[2024-12-01] MEDS: DAPTOmycin 700 MG in SYRINGE 0 ML IV SCH (20:26)
[2024-12-01 23:48] LABS: ANTI-Xa, UFH(UnfractionatedHep 0.52 IU/ml (0.3-0.7)
[2024-12-02 06:23] LABS: Hematocrit (blood only) 31.2 % (42.0-52.0); Hemoglobin 10.8 g/dl (14.0-18.0); Mean Corpuscular Hemoglobin 29.3 pg (25.0-34.0); Mean Corpuscular Volume 84.6 fL (80.0-100.0); Platelet Count 339 K/uL (130-400); RDW Standard Deviation 45.9 fL (36.4-46.3); Red Blood Count 3.69 M/uL (4.70-6.10); White Blood Count 10.08 K/ul (4.8-10.8)
[2024-12-02 07:03] LABS: Anion Gap 8.0 (3-11); Blood Urea Nitrogen 58.0 mg/dl (6-23); Calcium 8.0 mg/dl (8.6-10.3); Carbon Dioxide 20.0 mmol/L (21-32); Chloride 110.0 mmol/L (98-107); Creatinine Clr Calc Pharmacy 110.1 ml/min; Glucose 162.0 mg/dl (70-99(Fasting)); Potassium 4.1 mmol/L (3.5-5.1); Sodium 138.0 mmol/L (136-145)
[2024-12-02] MEDS: ASPIRIN 81 MG ECTAB PO SCH (07:50)
[2024-12-02 08:29] LABS: ANTI-Xa, UFH(UnfractionatedHep 0.71 IU/ml (0.3-0.7)
[2024-12-02] MEDS: MICONAZOLE NITRATE POWDER 85 GM EXT SCH (10:31)
[2024-12-02] MEDS: SODIUM CHLORIDE 0.65% NA SOLN 45 ML (OCEAN) ONE (12:12)
[2024-12-02 15:46] LABS: ANTI-Xa, UFH(UnfractionatedHep 0.68 IU/ml (0.3-0.7)
[2024-12-02] MEDS: CEFEPIME 2000MG 2,000 MG/20 ML SYR IV SCH (16:39)
--- NOTE | 2024-12-02 20:25 | Hospitalist Progress Note ---
Date of Service December 02, 2024 Assessment & Plan (1) Cellulitis of right leg: (2) Sepsis: (3) ATN (acute tubular necrosis): (4) ARACELI (acute kidney injury): (5) Hyperlipidemia: (6) Diabetes mellitus type 2, uncontrolled: (7) Essential hypertension: (8) Obesity, Class III, BMI 40-49.9 (morbid obesity): (9) Acute deep vein thrombosis of right lower extremity: (10) Hypotension: Plan 64yo male with history of T2DM, hyperlipidemia, HTN, and morbid obesity presents with several weeks of his "right leg leaking" as well as worsening edema. This was followed by the development of erythema of the distal right leg from just below the right knee down to the right foot. He also developed poor appetite, weakness, and simply feeling poorly. #RLE cellulitis - present on admission - -with resulting sepsis -2nd to pseudomonas & strep -stop rocephin; change to cefepime -leave daptomycin for now but if no MRSA grows then ultimately can be stopped -blood cultures thus far negative -clinically looks better on exam today -CT RLE obtained to r/o nec fasc & abscess - negative for both issues -appreciate wound care consult and recs; see their photos from today, and my photo in this note -tylenol as needed for pain control -elevate leg when in bed #sepsis/severe sepsis - present on admission - improved - -hypotension improved with holding all home BP meds and copious IV fluids overnight -cortisol level >20 (random) -source of sepsis - severe RLE cellulitis -cont IV antibiotics -creatinine nearly back to normal; stop IV fluids today #hypotension - -2nd to sepsis/severe sepsis -resolved -stop IV fluids -cont to hold home BP meds - to be complete will obtain echo - check LV/RV function #ARACELI 2nd to sepsis-associated ATN - -creatinine at presentation 2 -creatinine markedly improved today -- now <1 -cont to hold lisinopril and HCTZ -BMP am #diabetes mellitus - -a1c 6.5% in June 2024 -recheck another a1c while here -hold metformin -BSGs ac/hs -cont lantus 8 units BID -cont novolog ac/hs #morbid obesity - BMI 40.7 #HTN - -due to recent hypotension hold all anti-hypertensives at this time #DVT of RLE - -single DVT of gastrocnemius vein -cont heparin drip standard dosing -no clinical evidence of PE(s) -risk factors - sedentary lifestyle, inflammation of RLE, etc. #recent right shoulder bursitis - -per patient had steroid injection in shoulder several weeks ago -then, it appears he took a prednisone course this month -fortunately cortisol level is satisfactory PT/OT evals completed; will need rehab Admission and Anticipated Discharge Date Admission Date: December 01, 2024 Subjective no events overnight did have mildly low BPs at times but most were acceptable (ie MAP >65) c/o mild right leg pain denies dyspnea eating 100% of meals no new complaints tele wnl Review of Systems 2 Review of Systems: gen - no fevers or chills cv - no chest pain pulm - no dyspnea at rest GI - no N/V Physical Exam 2 Physical Exam: gen - obese, NAD, looks ok this am HENT - MMM neck - no JVD heart - RRR, s1 s2, no murmur; heart tones distant lungs - CTA b/l, scant dry rales bases abd - soft NT ND BS+; no HSM ext - 2+ pitting edema of the right foot and extending to the knee; trace edema left vivar/foot vascular - pulses b/l feet 2+ skin - dressings intact over right leg & foot; I can see the area of skin inferior to the right knee and the erythema in this region is LESS INTENSELY red than yesterday and the erythema is receding from the previously placed demarkation line PROXIMAL right vivar just inferior to right knee - improved erythema Results & Data Results & Data Vital Signs (Past 12 Hours) Vital Signs Temp Pulse Resp BP Pulse Ox O2 Del Method 12/02/24 19:57 36.6 C 95 H 18 118/67 96 Room Air 12/02/24 14:47 36.5 C 79 18 94/59 L 95 Room Air 12/02/24 11:02 36.6 C 90 18 94/47 L 95 Room Air Laboratory Results Laboratory Results - last 24 hr 12/01/24 12/02/24 12/02/24 23:09 05:41 07:19 WBC 10.08 RBC 3.69 L Hgb 10.8 L Hct 31.2 L MCV 84.6 MCH 29.3 MCHC 34.6 RDW Std Deviation 45.9 RDW Coeff of Yoli 14.9 H Plt Count 339 MPV 9.5 Heparin Anti-Xa, Unfract 0.52 Sodium 138 Potassium 4.1 Chloride 110 H Carbon Dioxide 20 L Anion Gap 8 BUN 58 H Creatinine 0.97 D Est Cr Clr Drug Dosing 110.1 eGFR 86.10 BUN/Creatinine Ratio 59.8 H Glucose 162 H POC Glucose 170 H Calcium 8.0 L 12/02/24 12/02/24 12/02/24 07:33 11:01 14:42 WBC RBC Hgb Hct MCV MCH MCHC RDW Std Deviation RDW Coeff of Yoli Plt Count MPV Heparin Anti-Xa, Unfract 0.71 H* 0.68 Sodium Potassium Chloride Carbon Dioxide Anion Gap BUN Creatinine Est Cr Clr Drug Dosing eGFR BUN/Creatinine Ratio Glucose POC Glucose 146 H Calcium Wound cx right leg - pseudmonas, strep Blood cultures negative PG Care Time/CCT Total # of Minutes Spent Total Time Spent with Patient: Total time spent is greater than 50% in coordination of care (as documented) at patient's floor/unit and/or counseling patient: Coding Level of Care Code 85558 SUB INP/OBS CARE 3/50MIN Diagnoses Cellulitis of right leg L03.115 Sepsis A41.9 ATN (acute tubular necrosis) N17.0 ARACELI (acute kidney injury) N17.9 Hyperlipidemia E78.5 Diabetes mellitus type 2, uncontrolled Essential hypertension I10 Obesity, Class III, BMI 40-49.9 (morbid obesity) E66.01 Acute deep vein thrombosis of right lower extremity I82.401 Hypotension I95.9
[2024-12-03 06:42] LABS: ANTI-Xa, UFH(UnfractionatedHep 0.64 IU/ml (0.3-0.7)
[2024-12-03 09:08] LABS: Anion Gap 6.0 (3-11); Calcium 8.1 mg/dl (8.6-10.3); Carbon Dioxide 22.0 mmol/L (21-32); Chloride 107.0 mmol/L (98-107); Potassium 4.1 mmol/L (3.5-5.1); Sodium 135.0 mmol/L (136-145)
[2024-12-03 09:16] LABS: Blood Urea Nitrogen 35.0 mg/dl (6-23); Creatinine Clr Calc Pharmacy 139.1 ml/min; Glucose 157.0 mg/dl (70-99(Fasting))
[2024-12-03] MEDS: INFLUENZA VACC TS2025-26(65y+)/PF (IIV3) 0.5mL Syr IM ONE (09:29)
[2024-12-03] MEDS: CARBAMIDE PEROXIDE 6.5% 15 ML BTL OTB SCH (10:02)
[2024-12-03] MEDS: ONDANSETRON INJ 2 MG/ML 2 ML VIAL IV PRN (16:06)
--- NOTE | 2024-12-03 20:24 | Hospitalist Progress Note ---
Date of Service December 03, 2024 Assessment & Plan (1) Cellulitis of right leg: (2) Sepsis: (3) ATN (acute tubular necrosis): (4) ARACELI (acute kidney injury): (5) Hyperlipidemia: (6) Diabetes mellitus type 2, uncontrolled: (7) Essential hypertension: (8) Obesity, Class III, BMI 40-49.9 (morbid obesity): (9) Acute deep vein thrombosis of right lower extremity: (10) Hypotension: Plan 64yo male with history of T2DM, hyperlipidemia, HTN, and morbid obesity presents with several weeks of his "right leg leaking" as well as worsening edema. This was followed by the development of erythema of the distal right leg from just below the right knee down to the right foot. He also developed poor appetite, weakness, and simply feeling poorly. #RLE cellulitis - present on admission - -with resulting sepsis MARKEDLY IMPROVED -2nd to pseudomonas & strep -cont cefepime - day #2 of such -unfortunately 1 of 2 strains of pseudomonas is quinolone resistant thus continue cefepime for duration of the abx course -no MRSA has grown - thus, stop daptomycin -blood cultures remain negative -CT RLE obtained to r/o nec fasc & abscess - negative for both issues -appreciate wound care consult and recs -tylenol as needed for pain control -elevate leg when in bed #sepsis/severe sepsis - present on admission - improved/resolved - -source of sepsis - severe RLE cellulitis -cont IV antibiotics -sepsis-associated ATN resolved #hypotension - -2nd to sepsis/severe sepsis - resolved, but still with borderline low BPs at times -echo to check LV/RV function -H/H have dropped since admission but had COPIOUS IV fluids and numerous blood draws; further, no overt GI bleeding (no melena, no BRBPR) -cont to hold home BP meds #ARACELI 2nd to sepsis-associated ATN - -creatinine at presentation 2 -creatinine now <1 -cont to hold lisinopril and HCTZ -BMP am #diabetes mellitus - controlled - -a1c 6.5% in June 2024 -recheck another a1c while here -hold metformin -BSGs ac/hs -cont lantus 8 units BID -cont novolog ac/hs #morbid obesity - BMI 40-42 #HTN - -due to recent hypotension hold all anti-hypertensives at this time #DVT of RLE - -single DVT of gastrocnemius vein -cont heparin drip standard dosing -no clinical evidence of PE(s) -risk factors - sedentary lifestyle, inflammation of RLE, etc. -should be able to use a DOAC for this below the knee DVT -at minimum Rx for 3 months -check [facility] #recent right shoulder bursitis - -per patient had steroid injection in shoulder several weeks ago -then, it appears he took a prednisone course this month -fortunately cortisol level is satisfactory PT/OT evals completed; will need rehab referrals made ([place]?) Admission and Anticipated Discharge Date Admission Date: December 01, 2024 Subjective no events tele - NSR or sinus tach feels good eating 100% of meals RLE discomfort nearly resolved no dyspnea we discussed rehab post-d/c; he is agreeable to such Review of Systems Review of Systems: gen - no fevers, no chills cv - no chest pain pulm - no dyspnea or VIERA GI - no abd pain or N/V Physical Exam Physical Exam: gen - obese, NAD, looks well; laying in bed HENT - MMM neck - no JVD heart - RRR, s1 s2, no murmur; heart tones distant lungs - CTA b/l, scant dry rales bases abd - soft NT ND BS+; no HSM ext -1-2+ pitting edema of the right foot and bottom portion of vivar - improving edema;trace edema left vivar/foot vascular - pulses b/l feet 2+ skin - dressings intact over right leg & foot; I can see the area of skin inferior to the right knee and the erythema in this region is again improved; erythema/cellulitis right foot MUCH better; all areas improved Results & Data Results & Data Vital Signs (Past 12 Hours) Vital Signs Temp Pulse Resp BP Pulse Ox O2 Del Method 12/03/24 16:29 Room Air 12/03/24 11:14 36.6 C 103 H 18 98/58 L 98 Room Air Laboratory Results Laboratory Results - last 48 hr 12/02/24 12/02/24 12/02/24 11:01 14:42 16:14 WBC RBC Hgb Hct MCV MCH MCHC RDW Std Deviation RDW Coeff of Yoli Plt Count MPV Heparin Anti-Xa, Unfract 0.68 Sodium Potassium Chloride Carbon Dioxide Anion Gap BUN Creatinine Est Cr Clr Drug Dosing eGFR BUN/Creatinine Ratio Glucose POC Glucose 146 H 129 H Calcium 12/02/24 12/03/24 12/03/24 20:26 05:40 05:49 WBC RBC Hgb Hct MCV MCH MCHC RDW Std Deviation RDW Coeff of Yoli Plt Count MPV Heparin Anti-Xa, Unfract 0.64 Sodium 135 L Potassium 4.1 Chloride 107 Carbon Dioxide 22 Anion Gap 6 BUN 35 H D Creatinine 0.78 Est Cr Clr Drug Dosing 139.1 eGFR 98.35 BUN/Creatinine Ratio 44.9 H Glucose 157 H POC Glucose 162 H Calcium 8.1 L 12/03/24 12/03/24 12/03/24 07:29 11:10 15:57 WBC RBC Hgb Hct MCV MCH MCHC RDW Std Deviation RDW Coeff of Yoli Plt Count MPV Heparin Anti-Xa, Unfract Sodium Potassium Chloride Carbon Dioxide Anion Gap BUN Creatinine Est Cr Clr Drug Dosing eGFR BUN/Creatinine Ratio Glucose POC Glucose 144 H 114 H 148 H Calcium Microbiology 12/01/24 11:30 Blood Aerobic Blood Culture - Preliminary No growth in Aerobic bottle after 48 hours. 12/01/24 11:30 Blood Anaerobic Blood Culture - Preliminary No growth in Anaerobic bottle after 48 hours. 12/01/24 11:40 Blood Aerobic Blood Culture - Preliminary No growth in Aerobic bottle after 48 hours. 12/01/24 11:40 Blood Anaerobic Blood Culture - Preliminary No growth in Anaerobic bottle after 48 hours. 12/01/24 13:12 Leg Gram Stain - Final 12/01/24 13:12 Leg Aerobic and Anaerobic Culture - Preliminary Pseudomonas aeruginosa Pseudomonas aeruginosa#2 Streptococcus dysgalactiae PG Care Time/CCT Total # of Minutes Spent Total Time Spent with Patient: Total time spent is greater than 50% in coordination of care (as documented) at patient's floor/unit and/or counseling patient: Coding Level of Care Code 93290 SUB INP/OBS CARE 3/50MIN Diagnoses Cellulitis of right leg L03.115 Sepsis A41.9 ATN (acute tubular necrosis) N17.0 ARACELI (acute kidney injury) N17.9 Hyperlipidemia E78.5 Diabetes mellitus type 2, uncontrolled Essential hypertension I10 Obesity, Class III, BMI 40-49.9 (morbid obesity) E66.01 Acute deep vein thrombosis of right lower extremity I82.401 Hypotension I95.9
--- NOTE | 2024-12-03 20:49 | XCELERA ---
[id number]
[2024-12-04 06:30] LABS: ANTI-Xa, UFH(UnfractionatedHep 0.51 IU/ml (0.3-0.7)
--- NOTE | 2024-12-04 07:09 | Electrocardiogram Report ---
Test Reason : Blood Pressure : */* mmHG Vent. Rate : 66 BPM Atrial Rate : 66 BPM P-R Int : 174 ms QRS Dur : 158 ms QT Int : 432 ms P-R-T Axes : 41 262 15 degrees QTcB Int : 452 ms Poor data quality, interpretation may be adversely affected Sinus rhythm with Fusion complexes Right bundle branch block Septal infarct , age undetermined Abnormal ECG When compared with ECG of 27-Jun-2008 06:42, Right bundle branch block is now Present Confirmed by Aaron Lezama ([id number]) on 12/04/2024 7:09:05 AM Referred By: REFERRED SELF Confirmed By: Aaron Lezama
[2024-12-04 07:48] LABS: Hematocrit (blood only) 25.3 % (42.0-52.0); Hemoglobin 8.3 g/dl (14.0-18.0); Mean Corpuscular Hemoglobin 28.1 pg (25.0-34.0); Mean Corpuscular Volume 85.8 fL (80.0-100.0); Platelet Count 302 K/uL (130-400); RDW Standard Deviation 45.9 fL (36.4-46.3); Red Blood Count 2.95 M/uL (4.70-6.10); White Blood Count 12.15 K/ul (4.8-10.8)
[2024-12-04 07:59] LABS: Anion Gap 4.0 (3-11); Blood Urea Nitrogen 43.0 mg/dl (6-23); Calcium 7.8 mg/dl (8.6-10.3); Carbon Dioxide 26.0 mmol/L (21-32); Chloride 106.0 mmol/L (98-107); Creatinine Clr Calc Pharmacy 163.4 ml/min; Glucose 169.0 mg/dl (70-99(Fasting)); Potassium 4.3 mmol/L (3.5-5.1); Sodium 136.0 mmol/L (136-145)
[2024-12-04] MEDS: APIXABAN 5 MG TABLET PO SCH (08:43)
[2024-12-04 12:24] LABS: Hematocrit (blood only) 27.4 % (42.0-52.0); Hemoglobin 9.0 g/dl (14.0-18.0)
[2024-12-04 12:41] LABS: Iron 69.0 mcg/dl (35-175); Total Iron Binding Cap Calc 231.0 mcg/dl (250-450); Transferrin 165.0 mg/dl (200-360); Transferrin (FE) Percent Satur 30.0 % (20-50)
[2024-12-04 13:00] LABS: Ferritin 767.1 ng/ml (8-388)
--- NOTE | 2024-12-04 13:01 | Hospitalist Progress Note ---
Date of Service December 04, 2024 Assessment & Plan (1) Acute anemia: (2) Hypotension: (3) Cellulitis of right leg: (4) Sepsis: (5) ATN (acute tubular necrosis): (6) ARACELI (acute kidney injury): (7) Hyperlipidemia: (8) Diabetes mellitus type 2, uncontrolled: (9) Essential hypertension: (10) Obesity, Class III, BMI 40-49.9 (morbid obesity): (11) Acute deep vein thrombosis of right lower extremity: (12) Folate deficiency: Plan 64yo male with history of T2DM, hyperlipidemia, HTN, and morbid obesity presents with several weeks of his "right leg leaking" as well as worsening edema. This was followed by the development of erythema of the distal right leg from just below the right knee down to the right foot. Exam c/w severe RLE cellulitis with resulting severe sepsis on day of admission. Now with sinus tachycardia, worsening anemia - all in setting of recently i nstituted systemic anticoagulation for DVT of RLE. #acute anemia - -Hb 13 on day of presentation -now with Hb 8-9 -has not had any stool since admission -however, with N/V today along with dyspepsia and trending down H/H worrisome for UGI bleeding -NPO -PPI drip -STOP asa -HOLD Eliquis -trend H/H and may need PRBCs -likely to need GI consult -next stool will obtain fecal occult -if NOT GI bleeding then consider CT a/p to rule out retroperitoneal bleed, etc. #RLE cellulitis - present on admission - -with resulting sepsis -cont to improve nicely -2nd to pseudomonas & strep -cont cefepime - day #3 of such -unfortunately 1 of 2 strains of pseudomonas is quinolone resistant thus continue cefepime for duration of the abx course -no MRSA has grown - thus, stopped daptomycin -blood cultures remain negative -CT RLE obtained to r/o nec fasc & abscess - negative for both issues -appreciate wound care consult and recs -tylenol as needed for pain control -elevate leg when in bed #sepsis/severe sepsis - present on admission - improved/resolved - -source of sepsis - severe RLE cellulitis -cont IV antibiotics -sepsis-associated ATN resolved #hypotension - -2nd to sepsis/severe sepsis - resolved, but still with borderline low BPs at times -echo with normal LV/RV function -suspect borderline low BPs at times are 2nd to worsening anemia - see above #ARACELI 2nd to sepsis-associated ATN - -creatinine at presentation 2 -creatinine now <1 -cont to hold lisinopril and HCTZ -BMP am #diabetes mellitus - controlled - -a1c 6.5% in June 2024 -hold metformin -BSGs ac/hs -since he will be NPO will HOLD lantus 8 units BID -cont novolog ac/hs #morbid obesity - BMI 40-42 #HTN - -cont to hold all anti-hypertensives #DVT of RLE - -single DVT of gastrocnemius vein -had been on heparin drip standard dosing with transition to PO Eliquis -all anticoagulation to be placed on hold in setting of concern for UGI bleeding -no clinical evidence of PE(s) -risk factors - sedentary lifestyle, inflammation of RLE, etc. -if there is GI bleeding will need to determine best course of action for this DVT #recent right shoulder bursitis - -per patient had steroid injection in shoulder several weeks ago -then, it appears he took a prednisone course this month -fortunately cortisol level is satisfactory PT/OT evals completed; will need rehab referrals made ([place]?) pt's family updated at bedside today Admission and Anticipated Discharge Date Admission Date: December 01, 2024 Subjective tele overnight - sinus tach this am he awoke feeling ok then about 1/2 [address] thru breakfast the had sudden nausea with vomiting along with a "burning" sensation in his right upper abdomen since then has had burping/belching and has simply felt unwell no BM since Friday of this week denies any abd pain denies dyspnea, but now has a cough since vomiting this am no chest pain Review of Systems Review of Systems: gen - no fevers or chills CV - no orthopnea pulm - some sputum w/ his cough; no wheezing GI - no BRBPR or melena stool Physical Exam Physical Exam: gen - obese, NAD, looks similar to yesterday HENT - MMM neck - no JVD heart - RRR, s1 s2, no murmur; heart tones distant lungs - CTA b/l, scant dry rales bases as previous abd - soft NT ND BS+; no HSM ext -1-2+ pitting edema of the right foot and bottom portion of vivar; trace edema left vivar/foot vascular - pulses b/l feet 2+ skin - dressings removed right vivar/foot; cellulitis MARKEDLY BETTER with erythema now pink tone and mainly centered on bottom portion of vivar; multiple ulcerations none of which are draining purulence; generalized pallor Results & Data Results & Data Vital Signs (Past 12 Hours) Vital Signs Temp Pulse Pulse Resp BP Pulse Ox O2 Del Method 12/04/24 11:42 36.4 C L 109 H 20 116/70 94 Room Air 12/04/24 11:24 Room Air 12/04/24 08:00 37.0 C 110 H 20 115/69 98 Room Air 12/04/24 06:00 103 H Laboratory Results Laboratory Results - last 48 hr 12/03/24 12/03/24 12/03/24 05:49 11:10 15:57 WBC RBC Hgb Hct MCV MCH MCHC RDW Std Deviation RDW Coeff of Yoli Plt Count MPV Heparin Anti-Xa, Unfract Sodium 135 L Potassium 4.1 Chloride 107 Carbon Dioxide 22 Anion Gap 6 BUN 35 H D Creatinine 0.78 Est Cr Clr Drug Dosing 139.1 eGFR 98.35 BUN/Creatinine Ratio 44.9 H Glucose 157 H POC Glucose 114 H 148 H Calcium 8.1 L Iron TIBC Transferrin Transferrin % Sat Ferritin Troponin I High Sens Vitamin B12 Folate 12/03/24 12/04/24 12/04/24 21:39 05:47 05:48 WBC 12.15 H RBC 2.95 L Hgb 8.3 L Hct 25.3 L MCV 85.8 MCH 28.1 MCHC 32.8 RDW Std Deviation 45.9 RDW Coeff of Yoli 14.8 H Plt Count 302 MPV 9.8 Heparin Anti-Xa, Unfract 0.51 Sodium 136 Potassium 4.3 Chloride 106 Carbon Dioxide 26 Anion Gap 4 BUN 43 H Creatinine 0.67 Est Cr Clr Drug Dosing 163.4 eGFR 102.98 BUN/Creatinine Ratio 64.2 H Glucose 169 H POC Glucose 152 H Calcium 7.8 L Iron TIBC Transferrin Transferrin % Sat Ferritin Troponin I High Sens Vitamin B12 Folate 12/04/24 12/04/24 12/04/24 07:21 11:00 12:10 WBC RBC Hgb 9.0 L Hct 27.4 L MCV MCH MCHC RDW Std Deviation RDW Coeff of Yoli Plt Count MPV Heparin Anti-Xa, Unfract Sodium Potassium Chloride Carbon Dioxide Anion Gap BUN Creatinine Est Cr Clr Drug Dosing eGFR BUN/Creatinine Ratio Glucose POC Glucose 150 H 184 H Calcium Iron 69 TIBC 231 L Transferrin 165 L Transferrin % Sat 30 Ferritin 767.1 H Troponin I High Sens 14.3 Vitamin B12 636 Folate 4.84 L 12/04/24 12/04/24 12/04/24 16:20 18:02 20:16 WBC RBC Hgb 8.2 L Hct 24.3 L MCV MCH MCHC RDW Std Deviation RDW Coeff of Yoli Plt Count MPV Heparin Anti-Xa, Unfract Sodium Potassium Chloride Carbon Dioxide Anion Gap BUN Creatinine Est Cr Clr Drug Dosing eGFR BUN/Creatinine Ratio Glucose POC Glucose 158 H 192 H Calcium Iron TIBC Transferrin Transferrin % Sat Ferritin Troponin I High Sens 14.4 Vitamin B12 Folate Diagnostic Findings Chest X-Ray 12/04/24 12:59 EXAM: Radiograph of the Chest 1 View INDICATION: Right upper quadrant pain TECHNIQUE: Frontal view of the chest. COMPARISON: 12/01/2024 FINDINGS: Lungs and pleural spaces: No consolidation or pulmonary edema. No pleural effusion or pneumothorax. Heart: Shape and configuration within normal limits allowing for technique. Mediastinum: Normal contour. Bones/joints: Degenerative changes noted throughout the spine. No acute osseous abnormality seen. Soft tissues: No abnormality noted. No radiopaque foreign body noted. Vasculature: Stable ectatic aorta. Upper abdomen: No abnormality noted. IMPRESSION: No acute change noted. ACT 112: N/A Electronically signed by Winnie Alcazar 12-04-2024 3:59 PM KUB X-Ray 12/04/24 12:59 EXAM: Radiograph of the Abdomen 1 View INDICATION: Right upper quadrant pain. TECHNIQUE: Frontal supine view of the abdomen/pelvis. COMPARISON: No relevant prior studies available. FINDINGS: Limitations: None. Gastrointestinal tract: Moderate scattered colonic stool most copious in the rectum. No obstruction. Organs: Possible tiny left kidney stones versus overlying bowel content. Bones/joints: Degenerative changes noted throughout the spine. No acute osseous abnormality seen. Soft tissues: No abnormality noted. No radiopaque foreign body noted. IMPRESSION: 1. Moderate scattered colonic stool most copious in the rectum. No obstruction. 2. Possible tiny left kidney stones versus overlying bowel content. ACT 112: N/A Electronically signed by Winnie Alcazar 12-04-2024 3:58 PM PG Care Time/CCT Total # of Minutes Spent Total Time Spent with Patient: Total time spent is greater than 50% in coordination of care (as documented) at patient's floor/unit and/or counseling patient: Coding Level of Care Code 79423 SUB INP/OBS CARE 3/50MIN Diagnoses Acute anemia D64.9 Hypotension I95.9 Cellulitis of right leg L03.115 Sepsis A41.9 ATN (acute tubular necrosis) N17.0 ARACELI (acute kidney injury) N17.9 Hyperlipidemia E78.5 Diabetes mellitus type 2, uncontrolled Essential hypertension I10 Obesity, Class III, BMI 40-49.9 (morbid obesity) E66.01 Acute deep vein thrombosis of right lower extremity I82.401 Folate deficiency E53.8
[2024-12-04 13:07] LABS: Folate (Folic Acid),Ser orPlas 4.84 ng/ml (>5.38)
[2024-12-04 13:08] LABS: Vitamin B12 636.0 pg/ml (180-914)
[2024-12-04] MEDS: FAMOTIDINE 20MG IV PUSH 20 MG/5 ML SYR IV STA (14:10)
[2024-12-04] MEDS: SUCRALFATE 1 GM/10 ML UDC PO SCH (14:11)
--- NOTE | 2024-12-04 15:58 | XRay Report ---
EXAM: Radiograph of the Abdomen 1 View INDICATION: Right upper quadrant pain. TECHNIQUE: Frontal supine view of the abdomen/pelvis. COMPARISON: No relevant prior studies available. FINDINGS: Limitations: None. Gastrointestinal tract: Moderate scattered colonic stool most copious in the rectum. No obstruction. Organs: Possible tiny left kidney stones versus overlying bowel content. Bones/joints: Degenerative changes noted throughout the spine. No acute osseous abnormality seen. Soft tissues: No abnormality noted. No radiopaque foreign body noted. IMPRESSION: 1. Moderate scattered colonic stool most copious in the rectum. No obstruction. 2. Possible tiny left kidney stones versus overlying bowel content. ACT 112: N/A Electronically signed by Winnie Alcazar 12-04-2024 3:58 PM
--- NOTE | 2024-12-04 15:59 | XRay Report ---
EXAM: Radiograph of the Chest 1 View INDICATION: Right upper quadrant pain TECHNIQUE: Frontal view of the chest. COMPARISON: 12/01/2024 FINDINGS: Lungs and pleural spaces: No consolidation or pulmonary edema. No pleural effusion or pneumothorax. Heart: Shape and configuration within normal limits allowing for technique. Mediastinum: Normal contour. Bones/joints: Degenerative changes noted throughout the spine. No acute osseous abnormality seen. Soft tissues: No abnormality noted. No radiopaque foreign body noted. Vasculature: Stable ectatic aorta. Upper abdomen: No abnormality noted. IMPRESSION: No acute change noted. ACT 112: N/A Electronically signed by Winnie Alcazar 12-04-2024 3:59 PM
[2024-12-04] MEDS: FOLIC ACID 1 MG in SYRINGE 9.8 ML IV STA (17:34)
[2024-12-04 18:46] LABS: Hematocrit (blood only) 24.3 % (42.0-52.0); Hemoglobin 8.2 g/dl (14.0-18.0)
[2024-12-04] MEDS: PANTOprazole 40 MG in DEXTROSE 5% MINI-B 100 ML IV SCH (20:19)
[2024-12-04] MEDS ORDERED: PANTOprazole 40 MG/10 ML SYR IV SCH (21:00)
[2024-12-05] MEDS: MAGNESIUM SULFATE / D5W 1 GM/100 ML BAG IV ONE (01:53)
[2024-12-05] MEDS: LACTATED RINGER'S 500 ML IV ONE (01:53)
[2024-12-05 07:33] LABS: Hematocrit (blood only) 21.3 % (42.0-52.0); Hemoglobin 6.8 g/dl (14.0-18.0); Mean Corpuscular Hemoglobin 28.1 pg (25.0-34.0); Mean Corpuscular Volume 88.0 fL (80.0-100.0); Platelet Count 279 K/uL (130-400); RDW Standard Deviation 47.3 fL (36.4-46.3); Red Blood Count 2.42 M/uL (4.70-6.10); White Blood Count 11.98 K/ul (4.8-10.8)
[2024-12-05 07:48] LABS: Anion Gap 4.0 (3-11); Blood Urea Nitrogen 36.0 mg/dl (6-23); Calcium 7.9 mg/dl (8.6-10.3); Carbon Dioxide 28.0 mmol/L (21-32); Chloride 105.0 mmol/L (98-107); Creatinine Clr Calc Pharmacy 156.4 ml/min; Glucose 156.0 mg/dl (70-99(Fasting)); Potassium 4.1 mmol/L (3.5-5.1); Sodium 137.0 mmol/L (136-145)
[2024-12-05] MEDS ORDERED: SODIUM CHLORIDE 0.9% 100 ML IV PRN ×3 (07:52→16:21)
--- NOTE | 2024-12-05 08:35 | Hospitalist Progress Note ---
Date of Service December 05, 2024 Assessment & Plan (1) Upper GI bleeding: (2) Duodenal ulcer hemorrhage: (3) Acute blood loss anemia: (4) Hypotension: (5) Cellulitis of right leg: (6) Sepsis: (7) ATN (acute tubular necrosis): (8) ARACELI (acute kidney injury): (9) Hyperlipidemia: (10) Diabetes mellitus type 2, uncontrolled: (11) Essential hypertension: (12) Obesity, Class III, BMI 40-49.9 (morbid obesity): (13) Acute deep vein thrombosis of right lower extremity: (14) Folate deficiency: Plan 64yo male with history of T2DM, hyperlipidemia, HTN, and morbid obesity presents with several weeks of his "right leg leaking" as well as worsening edema. This was followed by the development of erythema of the distal right leg from just below the right knee down to the right foot. Exam c/w severe RLE cellulitis with resulting severe sepsis on day of admission. Last 48 hours developed worsening anemia in the setting of recently instituted systemic anticoagulation for DVT of RLE (anticoagulation and aspirin d/c AM of 12/04). #upper GI bleeding with resulting acute blood loss anemia 2nd to duodenal ulcers - -started on PPI drip 12/04 -all anticoagulation & aspirin placed on hold AM of 12/04 -PT/INR/PTT and fibrinogen all wnl -Hb today <7 with melena stool overnight -blood consent obtained; Tx 2 units PRBCs -urgent GI consultation by Dr Guerra -EGD performed by Dr Guerra - multiple duodenal ulcers & signs of Anand's esophagus were found -one of the duodenal ulcers had a visible ulcer with active bleeding; s/p injected & clipped -bleeding stopped following these interventions -upon return to PCU I ordered a 3rd unit of PRBCs -will check H/H post-3rd unit this evening -T/C 3 additional units of PRBCs to remain on hold in case of re-bleeding -high risk of re-bleeding and, if that occurs, he would need immediate transfer to tertiary care for embolization by IR -STRICT NPO -cont PPI drip -serial H/H's -appreciate Dr Guerra's assistance -ulcers 2nd to chronic aspirin use? -no NSAID use; no etoh use -however, did have a prednisone course and finished this several days prior to admission #RLE cellulitis - present on admission - nearly resolved - -with resulting sepsis -2nd to pseudomonas & strep -cont cefepime - day #4 of such -unfortunately 1 of 2 strains of pseudomonas is quinolone resistant thus continue cefepime for duration of the abx course -blood cultures negative -CT RLE obtained on hospital day #1 to r/o nec fasc & abscess - negative for both issues -appreciate wound care consult and recs -elevate leg when in bed #sepsis/severe sepsis - present on admission - resolved - -source of sepsis - severe RLE cellulitis -cont IV antibiotics (cefepime) -sepsis-associated ATN resolved #hypotension - present on admission - -2nd to sepsis/severe sepsis - resolved, but soft/borderline low BPs last 24 hours due to acute blood loss anemia -echo with normal LV/RV function #ARACELI 2nd to sepsis-associated ATN - resolved - -creatinine at presentation 2 -creatinine remains <1 at 0.7 today -cont to hold lisinopril and HCTZ -BMP am #diabetes mellitus - controlled - -a1c 6.5% in June 2024 -hold metformin -BSGs ac/hs -cont to HOLD lantus 8 units BID due to NPO status -cont novolog prn #morbid obesity - BMI 42 #HTN - -cont to hold all anti-hypertensives #DVT of RLE - -single DVT of gastrocnemius vein -had been on heparin drip standard dosing with transition to PO Eliquis (1 dose only) -all anticoagulation on hold in setting of UGI bleeding/acute blood loss anemia -no clinical evidence of PE(s) -risk factors - sedentary lifestyle, inflammation of RLE, etc. -fortunately since this is a [id number] DVT the risk of embolism is low relative to more proximal DVTs in the thigh, etc. -the DVT is lengthy (8cm) [id number] -will obtain repeat doppler next couple of days and if stable or smaller can hopefully observe off of anticoagulation -if any worsening/extension of the original DVT will ask vascular surgery to see in consult (filter in the case?) #recent right shoulder bursitis - -per patient had steroid injection in shoulder several weeks ago -then, it appears he took a prednisone course this month and finished it a few days prior to admission -fortunately cortisol level was satisfactory -recent steroids may have contributed to duodenal ulcer development PT/OT evals completed; will need rehab at [place] post-d/c plan of care d/w night physician on 12/05 night physician to f/u on repeat H/H very complex care coordination in setting of UGI bleeding total time spent on all care activities today about 90 min Admission and Anticipated Discharge Date Admission Date: December 01, 2024 Subjective events of overnight noted needed a fluid bolus for worsening tachycardia also noted to have at least 2 melena stools when I arrived this am Mr Pimentel's CBC showed Hb <7 I went to see Mr Pimentel and consented him for PRBCs he reported weakness and fatigue but amazingly no dizziness denied any further N/V denied any abd pain denied any right leg complaints denied dyspnea the cough he had yesterday is resolved patient denies any GI symptoms prior to this admission did confirm he was taking 81mg of aspirin pre-admission Review of Systems Review of Systems: CV - no chest pain pulm - no dyspnea or VIERA GI - no coffee-ground emesis or hematemesis Physical Exam Physical Exam: gen - obese, NAD, lying in bed; generalized pallor; awake/alert HENT - MMM neck - no JVD heart - tachycardic, s1 s2, no murmur; heart tones distant lungs - CTA b/l, no increased work of breathing abd - soft NT ND BS+; no HSM ext -1+ pitting edema of the right foot and bottom portion of vivar; trace edema left vivar/foot vascular - pulses b/l feet 2+ skin - cellulitis nearly resolved right vivar; multiple ulcerations none of which are draining purulence; generalized pallor remains Results & Data Results & Data Vital Signs (Past 12 Hours) Vital Signs Temp Pulse Pulse Resp BP Pulse Ox O2 Del Method 12/05/24 08:00 36.8 C 106 H 18 126/77 99 Room Air 12/05/24 03:38 36.8 C 96 H 18 109/73 99 Room Air 12/05/24 00:57 115 H 111/65 12/04/24 22:15 36.7 C 110 H 18 115/77 99 Room Air 12/04/24 21:00 111 H 12/04/24 21:00 Room Air Laboratory Results Laboratory Results - last 24 hr 12/04/24 12/04/24 12/04/24 11:00 12:10 16:20 WBC RBC Hgb 9.0 L Hct 27.4 L MCV MCH MCHC RDW Std Deviation RDW Coeff of Yoli Plt Count MPV Sodium Potassium Chloride Carbon Dioxide Anion Gap BUN Creatinine Est Cr Clr Drug Dosing eGFR BUN/Creatinine Ratio Glucose POC Glucose 184 H 158 H Calcium Iron 69 TIBC 231 L Transferrin 165 L Transferrin % Sat 30 Ferritin 767.1 H Troponin I High Sens 14.3 Vitamin B12 636 Folate 4.84 L Blood Type Blood Type Recheck Antibody Screen Crossmatch 12/04/24 12/04/24 12/05/24 18:02 20:16 06:51 WBC 11.98 H RBC 2.42 L Hgb 8.2 L 6.8 L* Hct 24.3 L 21.3 L MCV 88.0 MCH 28.1 MCHC 31.9 L RDW Std Deviation 47.3 H RDW Coeff of Yoli 14.8 H Plt Count 279 MPV 9.7 Sodium 137 Potassium 4.1 Chloride 105 Carbon Dioxide 28 Anion Gap 4 BUN 36 H Creatinine 0.70 Est Cr Clr Drug Dosing 156.4 eGFR 101.62 BUN/Creatinine Ratio 51.4 H Glucose 156 H POC Glucose 192 H Calcium 7.9 L Iron TIBC Transferrin Transferrin % Sat Ferritin Troponin I High Sens 14.4 Vitamin B12 Folate Blood Type Blood Type Recheck Pending Antibody Screen Crossmatch 12/05/24 08:01 WBC RBC Hgb Hct MCV MCH MCHC RDW Std Deviation RDW Coeff of Yoli Plt Count MPV Sodium Potassium Chloride Carbon Dioxide Anion Gap BUN Creatinine Est Cr Clr Drug Dosing eGFR BUN/Creatinine Ratio Glucose POC Glucose Calcium Iron TIBC Transferrin Transferrin % Sat Ferritin Troponin I High Sens Vitamin B12 Folate Blood Type Pending Blood Type Recheck Antibody Screen Pending Crossmatch See Detail PG Care Time/CCT Total # of Minutes Spent Total Time Spent with Patient: Total time spent is greater than 50% in coordination of care (as documented) at patient's floor/unit and/or counseling patient: Prolonged Care Time Prolonged Care Time: Yes Total Prolonged Care Time: 90 Coding Level of Care Code 18366 SUB INP/OBS CARE 3/50MIN (25 - SIGNIFICANT, SEPARATELY IDENTIFIABLE ) Diagnoses Upper GI bleeding K92.2 Duodenal ulcer hemorrhage K26.4 Acute blood loss anemia D62 Hypotension I95.9 Cellulitis of right leg L03.115 Sepsis A41.9 ATN (acute tubular necrosis) N17.0 ARACELI (acute kidney injury) N17.9 Hyperlipidemia E78.5 Diabetes mellitus type 2, uncontrolled Essential hypertension I10 Obesity, Class III, BMI 40-49.9 (morbid obesity) E66.01 Acute deep vein thrombosis of right lower extremity I82.401 Folate deficiency E53.8 Additional Codes Prolonged Care Time - Prolonged Care Time: Yes ([id number])
[2024-12-05] MEDS: FOLIC ACID 1 MG in SYRINGE 9.8 ML IV SCH (09:09)
[2024-12-05 09:27] LABS: INR 1.0 (0.9-1.1); Partial Thromboplastin Time 23 Seconds (21-31); Prothrombin Time 10.9 Seconds (9.0-12.0)
[2024-12-05 10:34] LABS: Fibrinogen 411 mg/dl (184-400)
--- NOTE | 2024-12-05 10:40 | Gastrointestinal Consultation ---
Date of Consultation December 05, 2024 Assessment & Plan (1) Acute anemia: (2) Acute deep vein thrombosis of right lower extremity: (3) Sepsis: (4) Cellulitis of right leg: (5) Melena: Pleasant 64-year-old gentleman admitted with cellulitis, sepsis, newly diagnosed DVT with recent anticoagulation who now presents with what looks like an upper GI bleed. Questionable peptic ulcer disease. Also concern for possible esophageal lesion given his intermittent dysphagia. He has been started on a Protonix drip. 1 unit of blood has been ordered. We will plan for an emergent EGD today. Patient is agreeable and consent is signed and on the chart. History of Present Illness Reason for Consultation: GI bleed Attending Physician: Aiden Curry MD History of Present Illness Patient is a very pleasant 64-year-old gentleman who was admitted into the hospital with lower extremity cellulitis and sepsis. He was also recently noted to have a DVT. Initially, he was started on a heparin drip. Yesterday his drip was stopped and he was given his first dose of Eliquis. Last evening, he had a large melanotic bowel movement. His blood counts which have been trending down since admission went from 8.2-6.8 overnight. His BUN is elevated at 36. Creatinine normal at 0.7. He underwent a KUB which just showed some moderate retained stool. He is mildly tachycardic but otherwise hemodynamically stable. Blood has been ordered. In speaking with him it sounds as if he has never had an endoscopy nor colonoscopy in the past. He does tell me that a recent Cologuard was negative. His only GI symptom is dysphagia mainly to meats. He states he will have to regurgitate from time to time because of this. During my interview this morning he is retching bringing up just clear mucus. Allergies Allergy/AdvReac Type Severity Reaction Status Date / Time No Known Drug Allergies Allergy Verified 10/28/24 11:07 Home Medications Medication Instructions Recorded Confirmed Type aspirin 81 mg tablet,delayed 81 mg PO DAILY 12/06/18 12/01/24 History release cholecalciferol (vitamin D3) 125 125 mcg PO DAILY 06/19/20 12/01/24 History mcg (5,000 unit) capsule coenzyme Q10 400 mg capsule (Co 400 mg PO DAILY #90 caps 06/11/21 12/01/24 Rx Q-10) lisinopril 20 mg tablet 20 mg PO DAILY #90 tabs 03/18/24 12/01/24 Rx metformin 500 mg tablet,extended 500 mg PO DAILY 90 days #90 tabs 03/18/24 12/01/24 Rx release 24 hr atorvastatin 40 mg tablet 40 mg PO DAILY #90 tabs 04/19/24 12/01/24 Rx metoprolol succinate 100 mg 100 mg PO DAILY #90 tabs 04/19/24 12/01/24 Rx tablet,extended release 24 hr triamterene 37.5 1 cap PO DAILY #90 caps 04/19/24 12/01/24 Rx mg-hydrochlorothiazide 25 mg capsule prednisone 20 mg tablet See Rx Instructions PO DAILY #30 11/03/24 12/01/24 Rx tabs apixaban 5 mg tablet (Eliquis) 5 mg PO BID #60 tabs 12/03/24 Rx Patient History Medical History Essential hypertension Diabetes mellitus type 2, uncontrolled Obesity, Class III, 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 tract infection Elevated fasting glucose Surgical History Fracture closed, humerus Family History Sister Breast cancer Mother , in her 70s Diabetes Hypertension Father , in her 70s Diabetes Hypertension Myocardial infarction Denies family history of Ovarian cancer Prostate cancer Colorectal cancer Stroke Social History Smoking Status: Never smoker Second Hand Exposure: Yes; Do You Dip or Chew Tobacco: No; Hx Alcohol Use: No Hx Substance Use: No Preferred Language: Yakut Communication Ability: Effective Coverage Specialist Required: No Beliefs That Will Affect Care: None marital status: Single Current Living Situation: Alone Current Living Situation Comment: Alone current occupational status: employed 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 How many Children do You have: 0 Other Information That Helps Us Care for You: No Feels Safe at Home: Yes Safety Concerns: Feels Safe At This Time Childhood Exposure to Second-Hand Smoke: No Diet: regular caffeine: Yes (coffee) Dental Care, Regularly: No Physical Activity Frequency: Daily Seatbelt Use: always Sunscreen Use: No Assistive Devices: Cane Physical Exam Constitutional: WD/WN, vitals as above Eyes: PERRL, conjunctivae normal, anicteric sclerae Neck: trachea midline, no thyromegaly Respiratory: normal respiratory effort, lungs clear to auscultation Cardiovascular: RRR, no murmur, no edema Gastrointestinal (Abdomen): normal bowel sounds, soft, nontender, no hepatosplenomegaly Skin: no rashes, warm and dry Results & Data Vital Signs (Past 12 Hours) Vital Signs Temp Pulse Pulse Resp BP BP Pulse Ox 12/05/24 10:15 36.6 C 108 H 20 116/78 98 12/05/24 10:00 111 H 18 118/76 98 12/05/24 09:44 36.8 C 112 H 112/74 97 12/05/24 08:00 36.8 C 106 H 18 126/77 99 12/05/24 03:38 36.8 C 96 H 18 109/73 99 12/05/24 00:57 115 H 111/65 O2 Del Method 12/05/24 10:15 12/05/24 10:00 12/05/24 09:44 12/05/24 08:00 Room Air 12/05/24 03:38 Room Air 12/05/24 00:57 Laboratory Results 12/05/24 12/05/24 12/05/24 08:35 08:01 06:51 WBC 11.98 H RBC 2.42 L Hgb 6.8 L* Hct 21.3 L MCV 88.0 MCH 28.1 MCHC 31.9 L RDW Std Deviation 47.3 H RDW Coeff of Yoli 14.8 H Plt Count 279 MPV 9.7 PT 10.9 INR 1.0 APTT 23 PTT Ratio 0.9 Fibrinogen 411 H Sodium 137 Potassium 4.1 Chloride 105 Carbon Dioxide 28 Anion Gap 4 BUN 36 H Creatinine 0.70 Est Cr Clr Drug Dosing 156.4 eGFR 101.62 BUN/Creatinine Ratio 51.4 H Glucose 156 H POC Glucose Calcium 7.9 L Iron TIBC Transferrin Transferrin % Sat Ferritin Troponin I High Sens Vitamin B12 Folate Blood Type O Positive Blood Type Recheck Antibody Screen NEGATIVE Crossmatch See Detail 12/04/24 12/04/24 12/04/24 20:16 18:02 16:20 WBC RBC Hgb 8.2 L Hct 24.3 L MCV MCH MCHC RDW Std Deviation RDW Coeff of Yoli Plt Count MPV PT INR APTT PTT Ratio Fibrinogen Sodium Potassium Chloride Carbon Dioxide Anion Gap BUN Creatinine Est Cr Clr Drug Dosing eGFR BUN/Creatinine Ratio Glucose POC Glucose 192 H 158 H Calcium Iron TIBC Transferrin Transferrin % Sat Ferritin Troponin I High Sens 14.4 Vitamin B12 Folate Blood Type Blood Type Recheck O Positive Antibody Screen Crossmatch 12/04/24 12/04/24 12:10 11:00 WBC RBC Hgb 9.0 L Hct 27.4 L MCV MCH MCHC RDW Std Deviation RDW Coeff of Yoli Plt Count MPV PT INR APTT PTT Ratio Fibrinogen Sodium Potassium Chloride Carbon Dioxide Anion Gap BUN Creatinine Est Cr Clr Drug Dosing eGFR BUN/Creatinine Ratio Glucose POC Glucose 184 H Calcium Iron 69 TIBC 231 L Transferrin 165 L Transferrin % Sat 30 Ferritin 767.1 H Troponin I High Sens 14.3 Vitamin B12 636 Folate 4.84 L Blood Type Blood Type Recheck Antibody Screen Crossmatch Medications Administered Home Medications Medication Instructions Recorded Confirmed Last Taken aspirin 81 mg tablet,delayed 81 mg PO DAILY 12/06/18 12/01/24 11/30/24 release cholecalciferol (vitamin D3) 125 125 mcg PO DAILY 06/19/20 12/01/24 11/30/24 mcg (5,000 unit) capsule coenzyme Q10 400 mg capsule (Co 400 mg PO DAILY #90 caps 06/11/21 12/01/24 11/30/24 Q-10) lisinopril 20 mg tablet 20 mg PO DAILY #90 tabs 03/18/24 12/01/24 11/30/24 metformin 500 mg tablet,extended 500 mg PO DAILY 90 days #90 tabs 03/18/24 12/01/24 11/30/24 release 24 hr atorvastatin 40 mg tablet 40 mg PO DAILY #90 tabs 04/19/24 12/01/24 11/30/24 metoprolol succinate 100 mg 100 mg PO DAILY #90 tabs 04/19/24 12/01/24 11/30/24 tablet,extended release 24 hr triamterene 37.5 1 cap PO DAILY #90 caps 04/19/24 12/01/24 11/30/24 mg-hydrochlorothiazide 25 mg capsule prednisone 20 mg tablet See Rx Instructions PO DAILY #30 11/03/24 12/01/24 11/28/24 tabs apixaban 5 mg tablet (Eliquis) 5 mg PO BID #60 tabs 12/03/24 Unknown Active Medications Generic Name Dose Route Start Last Admin Trade Name Tessa PRN Reason Stop Dose Admin Apixaban 10 mg 12/04/24 09:00 12/04/24 08:43 Apixaban 5 Mg Tablet PO 10 mg BID ABDIRAHMAN Administration Aspirin 81 mg 12/02/24 09:00 12/04/24 08:43 Aspirin 81 Mg Ectab PO 01/01/25 08:59 81 mg DAILY ABDIRAHMAN Administration Carbamide Peroxide 5 drops 12/03/24 09:15 12/05/24 09:09 Carbamide Peroxide 6.5% 15 Ml Btl OTB 12/08/24 09:14 5 drops BID ABDIRAHMAN Administration Cefepime HCl 2,000 mg in 20 mls @ 5 mls/min 12/02/24 16:00 12/05/24 09:08 Maxipime 2000mg IV 12/09/24 15:59 5 mls/min Q8H ABDIRAHMAN Administration Folic Acid 1 mg/ Syringe 10 mls @ 5 mls/min 12/05/24 09:00 12/05/24 09:09 IV 01/04/25 08:59 5 mls/min QAM ABDIRAHMAN Administration Pantoprazole Sodium 40 mg/ 100 mls @ 20 mls/hr 12/04/24 19:00 12/05/24 10:36 Dextrose IV 01/03/25 18:59 8 mg/hr Q5H ABDIRAHMAN 20 mls/hr Administration 8 MG/HR Insulin Glargine 8 units 12/01/24 21:00 12/04/24 08:44 Lantus Per Unit Charge SQ 12/31/24 20:59 8 units BID ABDIRAHMAN Administration Miconazole Nitrate 1 appln 12/02/24 09:00 12/05/24 09:09 Miconazole Nitrate Powder 85 Gm EXT 01/01/25 08:59 1 appln TID ABDIRAHMAN Administration Ondansetron HCl 4 mg 12/01/24 16:30 12/04/24 08:44 Ondansetron Inj 2 Mg/Ml 2 Ml Vial IV 12/31/24 16:29 4 mg Q6H PRN Administration Nausea Sucralfate 1 gm 12/04/24 13:00 12/05/24 09:09 Sucralfate 1 Gm/10 Ml Udc PO 01/03/25 12:59 1 gm QID ABDIRAHMAN Administration PG Care Time/CCT Total # of Minutes Spent Total Time Spent with Patient: Total time spent is greater than 50% in coordination of care (as documented) at patient's floor/unit and/or counseling patient: Coding Level of Care Code 99306 IN/OBS CONSULT LVL 4,60M Diagnoses Acute anemia D64.9 Acute deep vein thrombosis of right lower extremity I82.401 Sepsis A41.9 Cellulitis of right leg L03.115 Melena K92.1
[2024-12-05] MEDS: INSULIN ASPART PER UNIT CHARGE SC SCH (12:30)
--- NOTE | 2024-12-05 12:31 | Anesthesiology Consultation ---
Date of Service December 05, 2024 Assessment & Plan Chart Review Chart Review: Acceptable Risk for Surgery and Patient NOT seen in Pre Admission Testing Consults Requested none ASA [id number] Proposed Anesthesia Anesthesia Type: General History Surgery Operation Date: 12/05/24 13:00 Proposed Procedures p Esophagogastroduodenoscopy - Kanwal Guerra DO Height/Weight Height: 6 ft 1 in Weight: 146.5 kg Allergies Allergy/AdvReac Type Severity Reaction Status Date / Time No Known Drug Allergies Allergy Verified 10/28/24 11:07 Medications Home Medications Medication Instructions Recorded Confirmed Last Taken aspirin 81 mg tablet,delayed 81 mg PO DAILY 12/06/18 12/01/24 11/30/24 release cholecalciferol (vitamin D3) 125 125 mcg PO DAILY 06/19/20 12/01/24 11/30/24 mcg (5,000 unit) capsule coenzyme Q10 400 mg capsule (Co 400 mg PO DAILY #90 caps 06/11/21 12/01/24 11/30/24 Q-10) lisinopril 20 mg tablet 20 mg PO DAILY #90 tabs 03/18/24 12/01/24 11/30/24 metformin 500 mg tablet,extended 500 mg PO DAILY 90 days #90 tabs 03/18/24 12/01/24 11/30/24 release 24 hr atorvastatin 40 mg tablet 40 mg PO DAILY #90 tabs 04/19/24 12/01/24 11/30/24 metoprolol succinate 100 mg 100 mg PO DAILY #90 tabs 04/19/24 12/01/24 11/30/24 tablet,extended release 24 hr triamterene 37.5 1 cap PO DAILY #90 caps 04/19/24 12/01/24 11/30/24 mg-hydrochlorothiazide 25 mg capsule prednisone 20 mg tablet See Rx Instructions PO DAILY #30 11/03/24 12/01/24 11/28/24 tabs apixaban 5 mg tablet (Eliquis) 5 mg PO BID #60 tabs 12/03/24 Unknown Active Medications Generic Name Dose Route Start Last Admin Trade Name Freq PRN Reason Stop Dose Admin Apixaban 10 mg 12/04/24 09:00 12/04/24 08:43 Apixaban 5 Mg Tablet PO 10 mg BID ABDIRAHMAN Administration Aspirin 81 mg 12/02/24 09:00 12/04/24 08:43 Aspirin 81 Mg Ectab PO 01/01/25 08:59 81 mg DAILY ABDIRAHMAN Administration Carbamide Peroxide 5 drops 12/03/24 09:15 12/05/24 09:09 Carbamide Peroxide 6.5% 15 Ml Btl OTB 12/08/24 09:14 5 drops BID ABDIRAHMAN Administration Cefepime HCl 2,000 mg in 20 mls @ 5 mls/min 12/02/24 16:00 12/05/24 09:08 Maxipime 2000mg IV 12/09/24 15:59 5 mls/min Q8H ABDIRAHMAN Administration Folic Acid 1 mg/ Syringe 10 mls @ 5 mls/min 12/05/24 09:00 12/05/24 09:09 IV 01/04/25 08:59 5 mls/min QAM ABDIRAHMAN Administration Pantoprazole Sodium 40 mg/ 100 mls @ 20 mls/hr 12/04/24 19:00 12/05/24 10:36 Dextrose IV 01/03/25 18:59 8 mg/hr Q5H ABDIRAHMAN 20 mls/hr Administration 8 MG/HR Insulin Glargine 8 units 12/01/24 21:00 12/04/24 08:44 Lantus Per Unit Charge SQ 12/31/24 20:59 8 units BID ABDIRAHMAN Administration Miconazole Nitrate 1 appln 12/02/24 09:00 12/05/24 09:09 Miconazole Nitrate Powder 85 Gm EXT 01/01/25 08:59 1 appln TID ABDIRAHMAN Administration Ondansetron HCl 4 mg 12/01/24 16:30 12/04/24 08:44 Ondansetron Inj 2 Mg/Ml 2 Ml Vial IV 12/31/24 16:29 4 mg Q6H PRN Administration Nausea Sucralfate 1 gm 12/04/24 13:00 12/05/24 09:09 Sucralfate 1 Gm/10 Ml Udc PO 01/03/25 12:59 1 gm QID ABDIRAHMAN Administration Past Medical History Medical History Essential hypertension Diabetes mellitus type 2, uncontrolled Obesity, Class III, 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 tract infection Elevated fasting glucose ASCVD Ao Anemia ARACELI/ATN Folate deficiency DVT Right gastronemius Gerd Exercise / Class Metabolic Activity III < 4 Walking/Shop/Light housework Past Family History Family History Sister Breast cancer Mother , in her 70s Diabetes Hypertension Father , in her 70s Diabetes Hypertension Myocardial infarction Denies family history of Ovarian cancer Prostate cancer Colorectal cancer Stroke Past Surgical History Surgical History Fracture closed, humerus Past Anesthesia History No Hx of Anesthesia Complications and No Family Hx of Anesthesia Complications History of PONV No Hx of PONV and No Hx of Motion Sickness Social History Smoking Status: Never smoker Do You Dip or Chew Tobacco: No Hx Alcohol Use: No Hx Substance Use: No Physical Exam Vital Signs Last Vital Signs Temp 36.7 C 12/05/24 12:21 Pulse 111 H 12/05/24 12:21 Resp 18 12/05/24 12:21 BP 104/72 12/05/24 12:21 Pulse Ox 100 12/05/24 12:21 O2 Del Method Room Air 12/05/24 08:00 Testing Laboratory Results 12/05/24 06:51 12/05/24 06:51 PT 10.9 Seconds (9.0-12.0) 12/05/24 08:35 INR 1.0 (0.9-1.1) 12/05/24 08:35 APTT 23 Seconds (21-31) 12/05/24 08:35 Blood Type O Positive 12/05/24 08:01 Antibody Screen NEGATIVE 12/05/24 08:01 12/01/24 13:12 Gram Stain - Final Leg Aerobic and Anaerobic Culture - Preliminary Pseudomonas aeruginosa Pseudomonas aeruginosa#2 Streptococcus dysgalactiae 12/01/24 11:30 Aerobic Blood Culture - Preliminary Blood No growth in Aerobic bottle after 48 hours. Anaerobic Blood Culture - Preliminary No growth in Anaerobic bottle after 48 hours. 12/01/24 11:40 Aerobic Blood Culture - Preliminary Blood No growth in Aerobic bottle after 48 hours. Anaerobic Blood Culture - Preliminary No growth in Anaerobic bottle after 48 hours. 12/05/24 11:59 POC Glucose 200 H Electrocardiogram Date: 12/01/24 Findings: + NSR @ (SR @ 64 w/ fusion complexes;RBBB;? septal infarct,age ?) and + RBBB Chest X-Ray Date: 12/04/24 Findings: + NAD and + other (stable ectatic aorta) Echocardiogram Date: 12/03/24 EF: 60% LV Function: normal RWMA: + none Other Findings: + LVH (moderate) Valvular Disease: + no significant valvular disease RV-mildly dilated w/ NL Fxn Ao root dilated 4.8 cm
[2024-12-05] MEDS ORDERED: FLUMAZENIL 0.1 MG/1 ML 10 ML VIAL IV PRN (14:04)
[2024-12-05] MEDS ORDERED: NALOXONE HCL 0.4 MG/1 ML VIAL/CARP IV PRN (14:04)
[2024-12-05] MEDS ORDERED: ATROPINE SULFATE 0.1 MG/ML 10ML SYR IV PRN (14:04)
[2024-12-05] MEDS ORDERED: PROMETHAZINE HCL 6.25 MG in SODIUM CHLORIDE 0.9% 50 ML IV PRN (14:04)
[2024-12-05] MEDS: ONDANSETRON INJ 2 MG/ML 2 ML VIAL IV PRN (14:08)
[2024-12-05] MEDS ORDERED: PANTOPRAZOLE BOLUS/DRIP IV STA (14:08)
--- NOTE | 2024-12-05 14:08 | GI REPORT ---
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 He had a large melanotic stool last evening. Today, he was noted to be tachycardic. Concern for upper GI bleed. Please see full consult for complete details. Medications: - Monitored Anesthesia Care - Propofol per Anesthesia Complications: - No immediate complications. Estimated Blood Loss: - Estimated blood loss was minimal. Procedure: - ASA Grade Assessment: IV - A patient with severe systemic disease that is a constant threat to life. - The egd scope was introduced through the mouth and advanced to the second part of the duodenum. - The upper GI endoscopy was accomplished without difficulty. - The patient tolerated the procedure well. Findings: - There were esophageal mucosal changes present in the distal esophagus consistent with long-segment Anand's esophagus. The maximum longitudinal extent of these mucosal changes was 4 cm in length. This was not biopsied in light of his recent bleeding. - A small hiatal hernia was present. - The entire examined stomach was normal. Biopsies were taken with a cold forceps for Helicobacter pylori testing. - The duodenal bulb was normal. - There was a significant amount of fresh and clotted blood present in the second portion of the duodenum. I washed and aspirated this area. The patient had multiple cratered duodenal ulcers in his second portion of the duodenum. The largest ulcer was approximately 7 mm in diameter. This was located right alongside the ampulla. Along the inferior border of this ulcer, he had a large visible vessel that was actively bleeding. The other ulcers had some pigmented spots at the bases but showed no signs of active bleeding The ulcer that contained the visible vessel was injected with 6 mL of a 0.1 mg/mL solution of epinephrine for hemostasis. He continued to bleed fairly briskly. To stop active bleeding, one hemostatic clip was successfully placed across the base of the vessel. There was no bleeding at the end of the procedure. Impression: - Esophageal mucosal changes consistent with long-segment Anand's esophagus. - Small hiatal hernia. - Normal stomach. Biopsied. - Normal duodenal bulb. - Multiple cratered duodenal ulcers 1 with a visible vessel. Treated with epinephrine and 1 hemostatic clip. Recommendation: - [facility]. - NPO today. - Give Protonix (pantoprazole): 8 mg/hr IV by continuous infusion for 3 days. - Await pathology results. He is going to be a very high risk of rebleeding. He cannot be maintained on any anticoagulation at this time. If he shows signs of any ongoing bleeding, I would favor transferring him out where he can get interventional radiology to embolize the vessel. Due to the brisk bleeding seen during this exam I do think he will need at least 1 more unit of packed red blood cells. Procedure Code(s): - 50146-96, Esophagogastroduodenoscopy, flexible, transoral; with control of bleeding, any method - 92739, Esophagogastroduodenoscopy, flexible, transoral; with biopsy, single or multiple Diagnosis Code(s): - K44.9, Diaphragmatic hernia without obstruction or gangrene - K26.4, Chronic or unspecified duodenal ulcer with hemorrhage - K22.89, Other specified disease of esophagus CPT(R) - 2023 copyright [employer]. All Rights Reserved. The CPT codes, CCI edits and ICD codes generated are intended as suggestions and were generated based on input data. These codes are preliminary and upon bill cutter review may be revised to meet current compliance and payer requirements. The provider is responsible for the final determination of appropriate codes, and modifiers. Kanwal Guerra, This document has been electronically signed. Note Initiated:12/05/2024 Note Completed:12/05/2024 2:07 PM \\[id number]
[2024-12-05] MEDS ORDERED: PANTOprazole 40 MG in DEXTROSE 5% MINI-B 100 ML IV SCH (14:30)
--- NOTE | 2024-12-05 14:46 | Anesthesiology Progress Note ---
Date of Service December 05, 2024 Anesthesia Post Procedure Vital Signs Vital Signs: Temp Pulse Pulse Pulse Resp BP BP 12/05/24 14:40 36.9 C 111 H 15 113/82 12/05/24 14:30 108 H 17 125/87 12/05/24 14:20 36.9 C 115 H 23 97/69 L 12/05/24 14:10 116 H 23 102/79 12/05/24 14:00 36 C L 119 H 14 133/86 12/05/24 12:21 36.7 C 111 H 18 104/72 12/05/24 11:45 110 H 18 128/81 12/05/24 10:45 106 H 20 106/73 12/05/24 10:15 36.6 C 108 H 20 116/78 12/05/24 10:00 111 H 18 118/76 12/05/24 09:44 36.8 C 112 H 112/74 12/05/24 08:00 36.8 C 106 H 18 126/77 12/05/24 03:38 36.8 C 96 H 18 109/73 12/05/24 00:57 115 H 111/65 12/04/24 22:15 36.7 C 110 H 18 115/77 12/04/24 21:00 111 H 12/04/24 21:00 12/04/24 19:39 36.8 C 109 H 20 112/75 12/04/24 16:02 36.5 C 122 H 18 105/55 L Pulse Ox O2 Del Method O2 Flow Rate 12/05/24 14:40 100 Room Air 12/05/24 14:30 99 Room Air 12/05/24 14:20 100 Room Air 12/05/24 14:10 100 Room Air 12/05/24 14:00 99 Oxymask 6 12/05/24 12:21 100 12/05/24 11:45 100 12/05/24 10:45 100 12/05/24 10:15 98 12/05/24 10:00 98 12/05/24 09:44 97 12/05/24 08:00 99 Room Air 12/05/24 03:38 99 Room Air 12/05/24 00:57 12/04/24 22:15 99 Room Air 12/04/24 21:00 12/04/24 21:00 Room Air 12/04/24 19:39 99 Room Air 12/04/24 16:02 99 Room Air Pain Intensity Right Lower Leg: Pain Intensity: 0 Transfer of Care Handoff Completed per policy Notes Mental Status: alert / awake / arousable Patient Amnestic to Procedure: Yes Nausea / Vomiting: adequately controlled Pain: adequately controlled Airway Patency, RR, SpO2: stable & adequate BP & HR: stable & adequate Hydration State: stable & adequate Anesthetic Complications: no major complications apparent
[2024-12-05] MEDS: SODIUM CHLORIDE 0.9% 1,000 ML IV SCH (15:20)
[2024-12-05 20:43] LABS: Hematocrit (blood only) 25.1 % (42.0-52.0); Hemoglobin 8.4 g/dl (14.0-18.0)
[2024-12-06 01:55] LABS: Hematocrit (blood only) 24.3 % (42.0-52.0); Hemoglobin 8.3 g/dl (14.0-18.0)
[2024-12-06 07:57] LABS: Hematocrit (blood only) 23.8 % (42.0-52.0); Hemoglobin 7.7 g/dl (14.0-18.0)
[2024-12-06 07:59] LABS: Hematocrit (blood only) 24.1 % (42.0-52.0); Hemoglobin 7.7 g/dl (14.0-18.0); Mean Corpuscular Hemoglobin 27.8 pg (25.0-34.0); Mean Corpuscular Volume 87.0 fL (80.0-100.0); Platelet Count 234 K/uL (130-400); RDW Standard Deviation 49.7 fL (36.4-46.3); Red Blood Count 2.77 M/uL (4.70-6.10); White Blood Count 9.43 K/ul (4.8-10.8)
[2024-12-06 08:13] LABS: Anion Gap 2.0 (3-11); Blood Urea Nitrogen 25.0 mg/dl (6-23); Calcium 7.8 mg/dl (8.6-10.3); Carbon Dioxide 28.0 mmol/L (21-32); Chloride 108.0 mmol/L (98-107); Creatinine Clr Calc Pharmacy 171.1 ml/min; Glucose 135.0 mg/dl (70-99(Fasting)); Magnesium 1.5 mg/dl (1.7-2.4); Potassium 4.0 mmol/L (3.5-5.1); Sodium 138.0 mmol/L (136-145)
--- NOTE | 2024-12-06 10:07 | Ultrasound Report ---
US venous doppler LE RT HISTORY: 64 years-old Male re-eval RLE DVT acute pain and swelling of the right lower leg. History o f right gastrocnemius vein thrombus. COMPARISON: 12/01/2024 TECHNIQUE: Multiple real-time sonographic images of the right lower extremity deep venous structures were obtained assessing grayscale appearance, color and spectral flow. FINDINGS: Persistent thrombus within the gastrocnemius vein which appears occlusive measuring up to at least 5 cm in length without significant change from prior. Mild adjacent subcutaneous edema. IMPRESSION: Persistent gastrocnemius vein thrombus. No additional deep or superficial venous thrombi identified. ACT 112: Negative or not required by law. The above report was generated using voice recognition software. It may contain grammatical, syntax o r spelling errors. Electronically signed by: Rahat Orellana M.D. 12/06/2024 10:06 AM
--- NOTE | 2024-12-06 12:33 | Hospitalist Progress Note ---
Date of Service December 06, 2024 Assessment & Plan (1) Upper GI bleeding: (2) Duodenal ulcer hemorrhage: (3) Acute blood loss anemia: (4) Hypotension: (5) Cellulitis of right leg: (6) Sepsis: (7) ATN (acute tubular necrosis): (8) ARACELI (acute kidney injury): (9) Diabetes mellitus type 2, uncontrolled: (10) Essential hypertension: (11) Obesity, Class III, BMI 40-49.9 (morbid obesity): (12) Acute deep vein thrombosis of right lower extremity: (13) Folate deficiency: Plan 64yo male with history of T2DM, hyperlipidemia, HTN, and morbid obesity presents with several weeks of his "right leg leaking" as well as worsening edema. This was followed by the development of erythema of the distal right leg from just below the right knee down to the right foot. Exam c/w severe RLE cellulitis with resulting severe sepsis on day of admission. #upper GI bleeding with resulting acute blood loss anemia 2nd to duodenal ulcers - started on PPI drip 12/04 all anticoagulation & aspirin placed on hold AM of 12/04 hgb dropped to below 7 on 12/05 requiring 3 units PRBCs. EGD performed 12/05 --> multiple bleeding duodenal ulcers; one w/ visible ulcer w/ active bleeding. s/p injected/clipped & bleeding subsided. Signs of Barretts. Hgb stable at 7.7 & repeat at 8.5 on 12/06 GI continues to follow - advanced to clear liquid diet. High risk of re bleed. If does re bleed will need transfer to tertiary care center for embolization by IR. #RLE cellulitis - present on admission - nearly resolved CT right leg: no acute osseous abnormality; nonspecific subQ edema w/ dermal thickening. no fluid collection. with resulting sepsis 2nd to pseudomonas & strep --> wound cultures w/ FQ resistance. BC negative. Wound nurse consulted: aquacel ag to open areas. change daily to every other day depending on drainage. #sepsis/severe sepsis - present on admission - resolved - source of sepsis - severe RLE cellulitis plan as above #ARACELI 2nd to sepsis-associated ATN - resolved - creatinine at presentation 2, now stable at 0.64. cont to hold lisinopril and HCTZ BMP am #diabetes mellitus - controlled a1c 6.5% in June 2024 hold metformin BSGs ac/hs cont novolog prn #morbid obesity - BMI 42 #HTN -cont to hold all anti-hypertensives #DVT of RLE - single DVT of gastrocnemius vein -- repeat doppler US 12/06 revealed stable gastrocnemius vein. HOLD anticoagulation in setting of acute GI bleeding. Continue to monitor symptoms. Will re-discuss when able if anticoagulation can be resumed. PT/OT evals completed; will need rehab at [place] post-d/c Code: full DVT prophylaxis: hold in setting of GI bleed. Admission and Anticipated Discharge Date Admission Date: December 01, 2024 Supervising Physician Co-Signing Physician Notes Attending Attestation: Chart reviewed, care plan d/w COLTEN Willoughby. I agree w/ the knott components of her documentation. Aiden Crowe was seen & examined this morning. reports he is feeling well & denies any complaints. States his leg is improving. Has not had a BM thus far today. Physical Exam Physical Exam: General: NAD, VS: BP 115/75; P88; R18; T36.3 Extremities: RLE w/ improvement of erythema, minimal drainage. Neuro: A&O x3 Results & Data Results & Data Vital Signs (Past 12 Hours) Vital Signs Temp Pulse Pulse Resp BP Pulse Ox O2 Del Method 12/06/24 12:00 36.4 C L 92 H 18 113/73 100 Room Air 12/06/24 07:24 36.5 C 94 H 20 116/72 99 Room Air 12/06/24 07:00 91 H 12/06/24 05:13 93 H 118/74 99 Room Air 12/06/24 04:13 94 H 111/70 97 Room Air 12/06/24 03:13 94 H 121/71 93 Room Air 12/06/24 02:13 103 H 119/75 103 H Room Air 12/06/24 01:14 103 H 113/72 96 Room Air PG Care Time/CCT Total # of Minutes Spent Total Time Spent with Patient: Total time spent is greater than 50% in coordination of care (as documented) at patient's floor/unit and/or counseling patient: Coding Level of Care Code 99104 SUB INP/OBS CARE 3/50MIN Diagnoses Upper GI bleeding K92.2 Duodenal ulcer hemorrhage K26.4 Acute blood loss anemia D62 Hypotension I95.9 Cellulitis of right leg L03.115 Sepsis A41.9 ATN (acute tubular necrosis) N17.0 ARACELI (acute kidney injury) N17.9 Diabetes mellitus type 2, uncontrolled Essential hypertension I10 Obesity, Class III, BMI 40-49.9 (morbid obesity) E66.01 Acute deep vein thrombosis of right lower extremity I82.401 Folate deficiency E53.8
--- NOTE | 2024-12-06 13:18 | Gastroenterology Progress Note ---
Date of Service December 06, 2024 Assessment & Plan (1) Duodenal ulcer hemorrhage: Plan: -Continue IV Protonix gtt for a total of 72 hours before transitioning to BID dosing -Continue to monitor H/H -Clear liquid diet -Patient is at high risk of re-bleeding. If he were to re-bleed, he would require IR intervention. Admission and Anticipated Discharge Date Admission Date: December 01, 2024 Supervising Physician Co-Signing Physician Notes Patient with cellulitis below-knee DVT. Upper GI bleed with anticoagulation. Patient had duodenal ulcer with visible vessel post and coagulation. High risk of rebleed. If systemic anticoagulation for DVT required I would consider a [place] filter in this situation. Aspirin can be continued in the face of PPI use. Follow-up for rebleed. Per Dr. Ramsay recommends tertiary referral with embolization if rebleeds. Subjective Patient is a 64 yo male who underwent an EGD on 12/05/24 for melena. He was found to have multiple cratered duodenal ulcerations with a visible vessel. He is at a high risk for rebleeding, but fortunately notes that he has not had any melena, hematemesis, BRBPR, or coffee ground emesis today. He denies abdominal pain. He is on an IV PPI gtt. H/H 7.7/24.1 today. Review of Systems Gastrointestinal: no abdominal pain, no coffee ground emesis, no hematemesis, no blood in stools and no melena Physical Exam Constitutional: well developed Respiratory: normal respiratory effort, lungs clear to auscultation Gastrointestinal (Abdomen): normal bowel sounds, soft, nontender, no hepatosplenomegaly Results & Data Results & Data Vital Signs (Past 12 Hours) Vital Signs Temp Pulse Pulse Resp BP Pulse Ox O2 Del Method 12/06/24 12:00 36.4 C L 92 H 18 113/73 100 Room Air 12/06/24 07:24 36.5 C 94 H 20 116/72 99 Room Air 12/06/24 07:00 91 H 12/06/24 05:13 93 H 118/74 99 Room Air 12/06/24 04:13 94 H 111/70 97 Room Air 12/06/24 03:13 94 H 121/71 93 Room Air 12/06/24 02:13 103 H 119/75 103 H Room Air PG Care Time/CCT Total # of Minutes Spent Total Time Spent with Patient: Total time spent is greater than 50% in coordination of care (as documented) at patient's floor/unit and/or counseling patient: Coding Level of Care Code 79420 SUB INP/OBS CARE 50MIN Diagnoses Duodenal ulcer hemorrhage K26.4
[2024-12-06 14:47] LABS: Hematocrit (blood only) 25.6 % (42.0-52.0); Hemoglobin 8.5 g/dl (14.0-18.0)
[2024-12-06] MEDS ORDERED: Nursing to Pharmacy Communication SCH (16:30)
[2024-12-06] MEDS: INSULIN ASPART PER UNIT CHARGE SC SCH (17:19)
[2024-12-07 06:22] LABS: Hematocrit (blood only) 21.3 % (42.0-52.0); Hemoglobin 6.9 g/dl (14.0-18.0); Mean Corpuscular Hemoglobin 28.5 pg (25.0-34.0); Mean Corpuscular Volume 88.0 fL (80.0-100.0); Platelet Count 213 K/uL (130-400); RDW Standard Deviation 50.0 fL (36.4-46.3); Red Blood Count 2.42 M/uL (4.70-6.10); White Blood Count 7.34 K/ul (4.8-10.8)
[2024-12-07 06:28] LABS: Anion Gap 2.0 (3-11); Blood Urea Nitrogen 19.0 mg/dl (6-23); Calcium 7.7 mg/dl (8.6-10.3); Carbon Dioxide 26.0 mmol/L (21-32); Chloride 111.0 mmol/L (98-107); Creatinine Clr Calc Pharmacy 182.5 ml/min; Glucose 120.0 mg/dl (70-99(Fasting)); Potassium 4.0 mmol/L (3.5-5.1); Sodium 139.0 mmol/L (136-145)
[2024-12-07] MEDS ORDERED: SODIUM CHLORIDE 0.9% 100 ML IV PRN (06:38)
--- NOTE | 2024-12-07 10:59 | History & Physical Bridge Note ---
Date of Service December 07, 2024 History & Physical Bridge Note I have examined the patient, reviewed the History & Physical and in the interval since the performance of the History & Physical I have noted the following changes of clinical significance: H/H dropped overnight to 6.9/21.3. No overt melena, hematochezia, hematemesis, or coffee ground emesis. Will keep NPO and proceed with EGD today. Supervising Physician Co-Signing Physician Notes Dark stool today drop in hemoglobin. There is also a corresponding drop in the BUN/creatinine without change in vitals. This may suggest a dilutional effect however with the combination following H&H and recurrent melena EGD to revisualize ulcerations with further intervention if stigmata or concerns for rebleed. Risk benefits explained the patient informed consent obtained
--- NOTE | 2024-12-07 11:27 | Hospitalist Progress Note ---
Date of Service December 07, 2024 Assessment & Plan (1) Upper GI bleeding: (2) Duodenal ulcer hemorrhage: (3) Acute blood loss anemia: (4) Hypotension: (5) Cellulitis of right leg: (6) Sepsis: (7) ATN (acute tubular necrosis): (8) ARACELI (acute kidney injury): (9) Diabetes mellitus type 2, uncontrolled: (10) Essential hypertension: (11) Obesity, Class III, BMI 40-49.9 (morbid obesity): (12) Acute deep vein thrombosis of right lower extremity: (13) Folate deficiency: Plan 64yo male with history of T2DM, hyperlipidemia, HTN, and morbid obesity presents with several weeks of his "right leg leaking" as well as worsening edema. This was followed by the development of erythema of the distal right leg from just below the right knee down to the right foot. Exam c/w severe RLE cellulitis with resulting severe sepsis on day of admission. #upper GI bleeding with resulting acute blood loss anemia 2nd to duodenal ulcers - started on PPI drip 12/04 all anticoagulation & aspirin placed on hold AM of 12/04 hgb dropped to below 7 on 12/05 requiring 3 units PRBCs. EGD performed 12/05 --> multiple bleeding duodenal ulcers; one w/ visible ulcer w/ active bleeding. s/p injected/clipped & bleeding subsided. Signs of Barretts. Overnight hgb dropped to 6.9 & 1 unit PRBC ordered w/ repeat hgb stable at 8.2. GI continues to follow - Repeat EGD 12/07, if bleeding will need transferred for IR embolization. #RLE cellulitis (nearly resolved)/severe sepsis (reoslved) - present on admission Sepsis source: RLE cellulitis. CT right leg: no acute osseous abnormality; nonspecific subQ edema w/ dermal thickening. no fluid collection. with resulting sepsis 2nd to pseudomonas & strep --> wound cultures w/ FQ resistance. BC negative. Continue IV Cefepime through 12/09. Wound nurse consulted: aquacel ag to open areas. change daily to every other day depending on drainage. #ARACELI 2nd to sepsis-associated ATN - resolved - creatinine at presentation 2, now stable at 0.60. cont to hold lisinopril and HCTZ BMP am #diabetes mellitus - controlled a1c 6.5% in June 2024 hold metformin BSGs ac/hs cont novolog prn #morbid obesity - BMI 42 #HTN -cont to hold all anti-hypertensives #DVT of RLE - single DVT of gastrocnemius vein -- repeat doppler US 12/06 revealed stable gastrocnemius vein. HOLD anticoagulation in setting of acute GI bleeding. Continue to monitor symptoms. Will re-discuss when able if anticoagulation can be resumed. PT/OT evals completed; will need rehab at [place] post-d/c Code: full DVT prophylaxis: hold in setting of GI bleed. Admission and Anticipated Discharge Date Admission Date: December 01, 2024 Supervising Physician Co-Signing Physician Notes Attending Attestation: Chart reviewed, care plan d/w COLTEN Willoughby. I agree w/ the knott components of her documentation. Aiden Crowe was seen & examined this morning. He denies any complaints today. Reports no BM since prior to his EGD on 12/05. Hgb did drop overnight @ he did require 1 unit PRBCs. Physical Exam Physical Exam: General: NAD, VS: BP 118/73; P83; R16: T36.8C Resp: normal respiratory effort, lungs clear to auscultation CV: RRR, no murmur Abd: normal bowel sounds, non tender Extremities: right lower extremity wrapped, decreasing erythema. no drainage noted. Neuro: A&O x3 Skin: intact, no lesions noted Results & Data Results & Data Vital Signs (Past 12 Hours) Vital Signs Temp Pulse Pulse Resp BP BP Pulse Ox 12/07/24 11:01 36.8 C 87 16 127/87 100 12/07/24 10:20 12/07/24 09:25 36.8 C 81 16 128/80 98 12/07/24 09:11 36.9 C 83 16 120/76 96 12/07/24 09:05 36.9 C 88 16 136/76 100 12/07/24 08:55 36.3 C L 92 H 16 134/75 99 12/07/24 07:10 36.5 C 76 18 117/74 95 12/07/24 02:31 36.5 C 77 18 144/74 H 98 O2 Del Method 12/07/24 11:01 Room Air 12/07/24 10:20 Room Air 12/07/24 09:25 Room Air 12/07/24 09:11 12/07/24 09:05 12/07/24 08:55 12/07/24 07:10 Room Air 12/07/24 02:31 Room Air PG Care Time/CCT Total # of Minutes Spent Total Time Spent with Patient: Total time spent is greater than 50% in coordination of care (as documented) at patient's floor/unit and/or counseling patient: Coding Level of Care Code 39991 SUB INP/OBS CARE 3/50MIN Diagnoses Upper GI bleeding K92.2 Duodenal ulcer hemorrhage K26.4 Acute blood loss anemia D62 Hypotension I95.9 Cellulitis of right leg L03.115 Sepsis A41.9 ATN (acute tubular necrosis) N17.0 ARACELI (acute kidney injury) N17.9 Diabetes mellitus type 2, uncontrolled Essential hypertension I10 Obesity, Class III, BMI 40-49.9 (morbid obesity) E66.01 Acute deep vein thrombosis of right lower extremity I82.401 Folate deficiency E53.8
[2024-12-07 12:41] LABS: Hematocrit (blood only) 24.4 % (42.0-52.0); Hemoglobin 8.2 g/dl (14.0-18.0)
--- NOTE | 2024-12-07 17:13 | Anesthesiology Consultation ---
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 Ramirez - Gavin Ramirez MD Height/Weight Height: 6 ft 1 in Weight: 145.6 kg Allergies Allergy/AdvReac Type Severity Reaction Status Date / Time No Known Drug Allergies Allergy Verified 10/28/24 11:07 Medications Home Medications Medication Instructions Recorded Confirmed Last Taken aspirin 81 mg tablet,delayed 81 mg PO DAILY 12/06/18 12/01/24 11/30/24 release cholecalciferol (vitamin D3) 125 125 mcg PO DAILY 06/19/20 12/01/24 11/30/24 mcg (5,000 unit) capsule coenzyme Q10 400 mg capsule (Co 400 mg PO DAILY #90 caps 06/11/21 12/01/24 11/30/24 Q-10) lisinopril 20 mg tablet 20 mg PO DAILY #90 tabs 03/18/24 12/01/24 11/30/24 metformin 500 mg tablet,extended 500 mg PO DAILY 90 days #90 tabs 03/18/24 12/01/24 11/30/24 release 24 hr atorvastatin 40 mg tablet 40 mg PO DAILY #90 tabs 04/19/24 12/01/24 11/30/24 metoprolol succinate 100 mg 100 mg PO DAILY #90 tabs 04/19/24 12/01/24 11/30/24 tablet,extended release 24 hr triamterene 37.5 1 cap PO DAILY #90 caps 04/19/24 12/01/24 11/30/24 mg-hydrochlorothiazide 25 mg capsule prednisone 20 mg tablet See Rx Instructions PO DAILY #30 11/03/24 12/01/24 11/28/24 tabs apixaban 5 mg tablet (Eliquis) 5 mg PO BID #60 tabs 12/03/24 Unknown Active Medications Generic Name Dose Route Start Last Admin Trade Name Freq PRN Reason Stop Dose Admin Apixaban 10 mg 12/04/24 09:00 12/04/24 08:43 Apixaban 5 Mg Tablet PO 10 mg BID ABDIRAHMAN Administration Aspirin 81 mg 12/02/24 09:00 12/04/24 08:43 Aspirin 81 Mg Ectab PO 01/01/25 08:59 81 mg DAILY ABDIRAHMAN Administration Carbamide Peroxide 5 drops 12/03/24 09:15 12/07/24 07:52 Carbamide Peroxide 6.5% 15 Ml Btl OTB 12/08/24 09:14 5 drops BID ABDIRAHMAN Administration Cefepime HCl 2,000 mg in 20 mls @ 5 mls/min 12/02/24 16:00 12/07/24 16:54 Maxipime 2000mg IV 12/09/24 15:59 5 mls/min Q8H ABDIRAHMAN Administration Folic Acid 1 mg/ Syringe 10 mls @ 5 mls/min 12/05/24 09:00 12/07/24 07:51 IV 01/04/25 08:59 5 mls/min QAM ABDIRAHMAN Administration Pantoprazole Sodium 40 mg/ 100 mls @ 20 mls/hr 12/04/24 19:00 12/07/24 16:55 Dextrose IV 01/03/25 18:59 8 mg/hr Q5H ABDIRAHMAN 20 mls/hr Administration 8 MG/HR Sodium Chloride 1,000 mls @ 100 mls/hr 12/05/24 08:45 12/07/24 08:13 Nss IV 12/08/24 08:44 100 mls/hr .Q10H ABDIRAHMAN Administration Insulin Aspart 0 units 12/06/24 16:30 12/07/24 16:04 Insulin Aspart Per Unit Charge SC 01/04/25 11:59 Not Given ACHS ABDIRAHMAN Insulin Glargine 8 units 12/01/24 21:00 12/04/24 08:44 Lantus Per Unit Charge SQ 12/31/24 20:59 8 units BID ABDIRAHMAN Administration Miconazole Nitrate 1 appln 12/02/24 09:00 12/07/24 14:24 Miconazole Nitrate Powder 85 Gm EXT 01/01/25 08:59 1 appln TID ABDIRAHMAN Administration Ondansetron HCl 4 mg 12/01/24 16:30 12/04/24 08:44 Ondansetron Inj 2 Mg/Ml 2 Ml Vial IV 12/31/24 16:29 4 mg Q6H PRN Administration Nausea Sucralfate 1 gm 12/04/24 13:00 12/06/24 20:53 Sucralfate 1 Gm/10 Ml Udc PO 01/03/25 12:59 1 gm QID ABDIRAHMAN Administration NPO Date Last Intake of Fluids: 12/04/24 Time Last Intake of Fluids: 21:00 Date Last Intake of Solids: 12/04/24 Time Last Intake of Solids: 17:00 Past Medical History Medical History Essential hypertension Diabetes mellitus type 2, uncontrolled Obesity, Class III, 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 tract infection Elevated fasting glucose Past Family History Family History Sister Breast cancer Mother , in her 70s Diabetes Hypertension Father , in her 70s Diabetes Hypertension Myocardial infarction Denies family history of Ovarian cancer Prostate cancer Colorectal cancer Stroke Past Surgical History Surgical History Fracture closed, humerus Social History Smoking Status: Never smoker Do You Dip or Chew Tobacco: No Hx Alcohol Use: No Hx Substance Use: No Physical Exam Vital Signs Last Vital Signs Temp 36.8 C 12/07/24 15:04 Pulse 83 12/07/24 15:04 Resp 16 12/07/24 15:04 BP 118/73 12/07/24 15:04 Pulse Ox 96 12/07/24 15:04 O2 Del Method Room Air 12/07/24 15:04 O2 Flow Rate 6 12/05/24 17:14 Testing Laboratory Results 12/07/24 12:11 12/07/24 05:57 PT 10.9 Seconds (9.0-12.0) 12/05/24 08:35 INR 1.0 (0.9-1.1) 12/05/24 08:35 APTT 23 Seconds (21-31) 12/05/24 08:35 Blood Type O Positive 12/05/24 08:01 Antibody Screen NEGATIVE 12/05/24 08:01 12/01/24 11:30 Aerobic Blood Culture - Final Blood No growth in Aerobic bottle after 5 days. Anaerobic Blood Culture - Final No growth in Anaerobic bottle after 5 days. 12/01/24 11:40 Aerobic Blood Culture - Final Blood No growth in Aerobic bottle after 5 days. Anaerobic Blood Culture - Final No growth in Anaerobic bottle after 5 days. 12/01/24 13:12 Gram Stain - Final Leg Aerobic and Anaerobic Culture - Final Pseudomonas aeruginosa Pseudomonas aeruginosa#2 Streptococcus dysgalactiae 12/07/24 12/07/24 12/07/24 15:58 10:53 07:08 POC Glucose 101 H 131 H 120 H Other Testing Electrocardiogram Date: 12/01/24 Findings: + NSR @ (SR @ 64 w/ fusion complexes;RBBB;? septal infarct,age ?) and + RBBB Chest X-Ray Date: 12/04/24 Findings: + NAD and + other (stable ectatic aorta) Echocardiogram Date: 12/03/24 EF: 60% LV Function: normal RWMA: + none Other Findings: + LVH (moderate) Valvular Disease: + no significant valvular disease RV-mildly dilated w/ NL Fxn Ao root dilated 4.8 cm
[2024-12-07] MEDS ORDERED: LIDOCAINE 2% 2 ML VIAL/AMP(20MG/ML) INFIL ONE (17:51)
[2024-12-07] MEDS ORDERED: ONDANSETRON INJ 2 MG/ML 2 ML VIAL ONE (17:51)
[2024-12-07] MEDS ORDERED: SUCCINYLCHOLINE CHLORIDE 20 MG/ML 10 ML VIAL IV ONE (17:51)
[2024-12-07] MEDS ORDERED: ROCURONIUM BROMIDE 10 MG/ML 5 ML VIAL IV ONE (17:51)
[2024-12-07] MEDS ORDERED: PROPOFOL IV EMULSION 10 MG/ML 20 ML VIAL IV ONE (17:51)
[2024-12-07] MEDS ORDERED: ATROPINE SULFATE 0.1 MG/ML 10ML SYR IV PRN (17:53)
[2024-12-07] MEDS ORDERED: ONDANSETRON INJ 2 MG/ML 2 ML VIAL IV PRN (17:53)
--- NOTE | 2024-12-07 18:47 | Communication Note ---
Date of Service: December 07, 2024 EGD Anand's esophagus biopsy in this gentleman with concerns for gastrointestinal bleeding. Multiple duodenal ulcers. Deep penetrating ulcer in the Without stigmata or visible vessels. Previous bleeding source identified in the ampulla area. There was a subtle ulceration around the actual papillary orifice. A clip was present in this area. Could not see any fresh bleeding or visible vessels. Difficult area to treat if there were further bleeding as there is a risk for biliary obstruction. Continue aggressive antacid therapy. Follow-up for rebleed
--- NOTE | 2024-12-07 18:56 | GI REPORT ---
[facility] Patient: ETSER TOLLIVER : 1960 Sex at : Male Age: 64 Years Procedure: Upper GI endoscopy Date: 12/07/2024 Attending Physician: Gavin Ramirez MD Referring MD: Aiden Curry Indications: - Suspected upper gastrointestinal bleeding - Melena Medications: - General Anesthesia Complications: - No immediate complications. Estimated Blood Loss: - Estimated blood loss: None. Procedure: - The egd scope was introduced through the mouth and advanced to the second part of the duodenum. - The upper GI endoscopy was accomplished without difficulty. - The patient tolerated the procedure well. Findings: - There were esophageal mucosal changes present in the distal esophagus suspicious for long-segment Anand's esophagus. The maximum longitudinal extent of these mucosal changes was 4 cm in length. - The entire examined stomach was normal. - One non-bleeding cratered duodenal ulcer with no stigmata of bleeding was found in the duodenal bulb. The lesion was 12 mm in largest dimension. - One non-bleeding cratered duodenal ulcer with no stigmata of bleeding was found at the major papilla. The lesion was 20 mm in largest dimension. - Multiple diffuse erosions without bleeding were found in the second portion of the duodenum. Impression: - Esophageal mucosal changes suspicious for long-segment Anand's esophagus. - Normal stomach. - Non-bleeding duodenal ulcer with no stigmata of bleeding. - Non-bleeding duodenal ulcer with no stigmata of bleeding. - Duodenal erosions without bleeding. - No specimens collected. Recommendation: - Continue aggressive PPI therapy. Avoid anticoagulation with Eliquis heparin type medications. Could reconsider in 10 to 14 days. If ASA is required can be used in this situation. Suggest rescope in 2 to 3 months to evaluate for Anand's with biopsies. Procedure Code(s): - 18550, Esophagogastroduodenoscopy, flexible, transoral; diagnostic, including collection of specimen(s) by brushing or washing, when performed (separate procedure) Diagnosis Code(s): - K92.1, Melena (includes Hematochezia) - K26.9, Duodenal ulcer, unspecified as acute or chronic, without hemorrhage or perforation - K22.89, Other specified disease of esophagus CPT(R) - 2023 copyright [employer]. All Rights Reserved. The CPT codes, CCI edits and ICD codes generated are intended as suggestions and were generated based on input data. These codes are preliminary and upon invoice coder review may be revised to meet current compliance and payer requirements. The provider is responsible for the final determination of appropriate codes, and modifiers. Gavin Ramirez MD This document has been electronically signed. Note Initiated:12/07/2024 Note Completed:12/07/2024 6:55 PM [id number]
--- NOTE | 2024-12-07 19:18 | Anesthesiology Progress Note ---
Date of Service December 07, 2024 Anesthesia Post Procedure Vital Signs Vital Signs: Temp Pulse Pulse Resp BP BP Pulse Ox 12/07/24 17:18 36.6 C 85 16 127/77 94 12/07/24 15:04 36.8 C 83 16 118/73 96 12/07/24 11:01 36.8 C 87 16 127/87 100 12/07/24 10:20 12/07/24 09:25 36.8 C 81 16 128/80 98 12/07/24 09:11 36.9 C 83 16 120/76 96 12/07/24 09:05 36.9 C 88 16 136/76 100 12/07/24 08:55 36.3 C L 92 H 16 134/75 99 12/07/24 07:10 36.5 C 76 18 117/74 95 12/07/24 02:31 36.5 C 77 18 144/74 H 98 12/06/24 23:02 36.5 C 86 20 161/93 H 100 12/06/24 23:00 86 12/06/24 20:00 O2 Del Method 12/07/24 17:18 Room Air 12/07/24 15:04 Room Air 12/07/24 11:01 Room Air 12/07/24 10:20 Room Air 12/07/24 09:25 Room Air 12/07/24 09:11 12/07/24 09:05 12/07/24 08:55 12/07/24 07:10 Room Air 12/07/24 02:31 Room Air 12/06/24 23:02 Room Air 12/06/24 23:00 12/06/24 20:00 Room Air Pain Intensity Right Lower Leg: Pain Intensity: 0 Transfer of Care Handoff Completed per policy Notes Mental Status: alert / awake / arousable Patient Amnestic to Procedure: Yes Nausea / Vomiting: adequately controlled Pain: adequately controlled Airway Patency, RR, SpO2: stable & adequate BP & HR: stable & adequate Hydration State: stable & adequate Anesthetic Complications: no major complications apparent and Pt Satisfied with anesthetic care
[2024-12-08 06:56] LABS: Hematocrit (blood only) 24.9 % (42.0-52.0); Hemoglobin 8.0 g/dl (14.0-18.0); Mean Corpuscular Hemoglobin 28.7 pg (25.0-34.0); Mean Corpuscular Volume 89.2 fL (80.0-100.0); Platelet Count 217 K/uL (130-400); RDW Standard Deviation 49.1 fL (36.4-46.3); Red Blood Count 2.79 M/uL (4.70-6.10); White Blood Count 7.92 K/ul (4.8-10.8)
[2024-12-08 07:24] LABS: Anion Gap 4.0 (3-11); Blood Urea Nitrogen 14.0 mg/dl (6-23); Calcium 7.8 mg/dl (8.6-10.3); Carbon Dioxide 25.0 mmol/L (21-32); Chloride 110.0 mmol/L (98-107); Creatinine Clr Calc Pharmacy 188.7 ml/min; Glucose 102.0 mg/dl (70-99(Fasting)); Potassium 3.4 mmol/L (3.5-5.1); Sodium 139.0 mmol/L (136-145)
[2024-12-08] MEDS: POTASSIUM CHLORIDE CRTAB 20 MEQ TABCR PO STA (08:38)
--- NOTE | 2024-12-08 12:17 | Hospitalist Progress Note ---
Date of Service December 08, 2024 Assessment & Plan (1) Upper GI bleeding: (2) Duodenal ulcer hemorrhage: (3) Acute blood loss anemia: (4) Hypotension: (5) Cellulitis of right leg: (6) Sepsis: (7) ATN (acute tubular necrosis): (8) ARACELI (acute kidney injury): (9) Diabetes mellitus type 2, uncontrolled: (10) Essential hypertension: (11) Obesity, Class III, BMI 40-49.9 (morbid obesity): (12) Acute deep vein thrombosis of right lower extremity: (13) Folate deficiency: Plan 64yo male with history of T2DM, hyperlipidemia, HTN, and morbid obesity presents with several weeks of his "right leg leaking" as well as worsening edema. This was followed by the development of erythema of the distal right leg from just below the right knee down to the right foot. Exam c/w severe RLE cellulitis with resulting severe sepsis on day of admission. #upper GI bleeding with resulting acute blood loss anemia 2nd to duodenal ulcers - Anticoag placed on hold 12/04, required 3 units of PRBCs on 12/05 and additional unit or PRBC on 12/07. EGD 12/05: multiple bleeding duodenal ulcers; one w/ visible ulcer w/ active bleeding. s/p injected/clipped, bleeding subsided. Signs of Anand's Repeat EGD 12/07 secondary to hgb drop: no signs of bleeding. GI following: continue aggressive antacid therapy. If re-bleeds would need transfer for IR embolization On PPI drip since 12/04 --> if hgb remains stable overnight can transition to PPI BID IV Continue Carafate. On full liquid diet, tolerating well. AM CBC #RLE cellulitis (nearly resolved)/severe sepsis (resolved) - present on admission Sepsis source: RLE cellulitis. CT right leg: no acute osseous abnormality; nonspecific subQ edema w/ dermal thickening. no fluid collection. with resulting sepsis 2nd to pseudomonas & strep --> wound cultures w/ FQ resistance. BC negative. Continue IV Cefepime through 12/09. Wound nurse consulted: Aquacel ag to open areas. change daily to every other day depending on drainage. #ARACELI 2nd to sepsis-associated ATN - resolved - creatinine at presentation 2, now stable at 0.58 cont to hold lisinopril and HCTZ K mildly low at 3.4 s/p repletion. BMP am #diabetes mellitus - controlled a1c 6.5% in June 2024 hold metformin BSGs ac/hs cont novolog prn #morbid obesity - BMI 42 #HTN -cont to hold all anti-hypertensives #DVT of RLE - single DVT of gastrocnemius vein -- repeat doppler US 12/06 revealed stable gastrocnemius vein. HOLD anticoagulation in setting of acute GI bleeding. Continue to monitor symptoms. Will re-discuss when able if anticoagulation can be resumed. PT/OT evals completed; will need rehab at [place] post-d/c Code: full DVT prophylaxis: hold in setting of GI bleed. Discussed w/ CM patient can likely go to [place] on 12/10 Admission and Anticipated Discharge Date Admission Date: December 01, 2024 Angie Crowe was seen & examined this morning. He reports to be doing well today, denies any complaints. Physical Exam Physical Exam: General: NAD, VS: BP 124/78; P76; R18; T36.5C Resp: normal respiratory effort Extremities: no edema Neuro: A&O x3 Skin: intact, no lesions noted Results & Data Results & Data Vital Signs (Past 12 Hours) Vital Signs Temp Pulse Pulse Resp BP Pulse Ox O2 Del Method 12/08/24 11:06 Room Air 12/08/24 11:03 36.3 C L 80 18 129/77 99 Room Air 12/08/24 09:30 81 12/08/24 07:11 36.2 C L 82 18 133/83 98 Room Air 12/08/24 04:01 36.7 C 77 20 141/87 H 95 Room Air PG Care Time/CCT Total # of Minutes Spent Total Time Spent with Patient: Total time spent is greater than 50% in coordination of care (as documented) at patient's floor/unit and/or counseling patient: Coding Level of Care Code 22058 SUB INP/OBS CARE 3/50MIN Diagnoses Upper GI bleeding K92.2 Duodenal ulcer hemorrhage K26.4 Acute blood loss anemia D62 Hypotension I95.9 Cellulitis of right leg L03.115 Sepsis A41.9 ATN (acute tubular necrosis) N17.0 ARACELI (acute kidney injury) N17.9 Diabetes mellitus type 2, uncontrolled Essential hypertension I10 Obesity, Class III, BMI 40-49.9 (morbid obesity) E66.01 Acute deep vein thrombosis of right lower extremity I82.401 Folate deficiency E53.8
--- NOTE | 2024-12-08 13:20 | Gastroenterology Progress Note ---
Date of Service December 08, 2024 Assessment & Plan (1) Duodenal ulceration: Plan: -Continue PPI therapy, at the conclusion of 72 hours on gtt, can transition to IV 40 mg BID. Will need Protonix 40 mg BID on discharge. -Continue to monitor H/H. -Continue to monitor for overt GI bleeding. -Needs EGD in 2-3 months for Anand's assessment. Admission and Anticipated Discharge Date Admission Date: December 01, 2024 Supervising Physician Co-Signing Physician Notes No evidence of gastrointestinal bleeding. If counts stable tomorrow likely can be discharged from a GI perspective. Recommend follow-up endoscopy in 2 to 3 months for ulcer healing and biopsies of noted Anand's esophagus. Subjective Patient is a 64 yo male with duodenal ulcerations. He underwent a repeat EGD on 12/07/24 that did not show any active bleeding. He denies GI bleeding at this t nico. He feels well from a GI standpoint. He continues on Protonix. Review of Systems Constitutional: no fever and no chills Respiratory: no cough and no dyspnea Cardiovascular: no chest pain Gastrointestinal: no abdominal pain, no coffee ground emesis, no hematemesis, no blood in stools and no melena Physical Exam Constitutional: well developed Respiratory: normal respiratory effort Gastrointestinal (Abdomen): normal bowel sounds, soft, nontender, no hepatosplenomegaly Results & Data Results & Data Vital Signs (Past 12 Hours) Vital Signs Temp Pulse Pulse Resp BP Pulse Ox O2 Del Method 12/08/24 11:06 Room Air 12/08/24 11:03 36.3 C L 80 18 129/77 99 Room Air 12/08/24 09:30 81 12/08/24 07:11 36.2 C L 82 18 133/83 98 Room Air 12/08/24 04:01 36.7 C 77 20 141/87 H 95 Room Air PG Care Time/CCT Total # of Minutes Spent Total Time Spent with Patient: Total time spent is greater than 50% in coordination of care (as documented) at patient's floor/unit and/or counseling patient: Coding Level of Care Code 35911 SUB INP/OBS CARE 2/35MIN Diagnoses Duodenal ulceration K26.9
[2024-12-09 08:26] LABS: Hematocrit (blood only) 25.3 % (42.0-52.0); Hemoglobin 8.2 g/dl (14.0-18.0); Mean Corpuscular Hemoglobin 29.0 pg (25.0-34.0); Mean Corpuscular Volume 89.4 fL (80.0-100.0); Platelet Count 222 K/uL (130-400); RDW Standard Deviation 49.1 fL (36.4-46.3); Red Blood Count 2.83 M/uL (4.70-6.10); White Blood Count 7.85 K/ul (4.8-10.8)
[2024-12-09 08:40] LABS: Anion Gap 3.0 (3-11); Blood Urea Nitrogen 10.0 mg/dl (6-23); Calcium 8.2 mg/dl (8.6-10.3); Carbon Dioxide 26.0 mmol/L (21-32); Chloride 109.0 mmol/L (98-107); Creatinine Clr Calc Pharmacy 174.6 ml/min; Glucose 119.0 mg/dl (70-99(Fasting)); Potassium 4.2 mmol/L (3.5-5.1); Sodium 138.0 mmol/L (136-145)
--- NOTE | 2024-12-09 12:09 | Hospitalist Progress Note ---
Date of Service December 09, 2024 Assessment & Plan (1) Upper GI bleeding: (2) Duodenal ulcer hemorrhage: (3) Acute blood loss anemia: (4) Hypotension: (5) Cellulitis of right leg: (6) Sepsis: (7) ATN (acute tubular necrosis): (8) ARACELI (acute kidney injury): (9) Diabetes mellitus type 2, uncontrolled: (10) Essential hypertension: (11) Obesity, Class III, BMI 40-49.9 (morbid obesity): (12) Acute deep vein thrombosis of right lower extremity: (13) Folate deficiency: Plan 64yo male with history of T2DM, hyperlipidemia, HTN, and morbid obesity presents with several weeks of his "right leg leaking" as well as worsening edema. This was followed by the development of erythema of the distal right leg from just below the right knee down to the right foot. Exam c/w severe RLE cellulitis with resulting severe sepsis on day of admission. #upper GI bleeding with resulting acute blood loss anemia 2nd to duodenal ulcers - Anticoag placed on hold 12/04, required 3 units of PRBCs on 12/05 and additional unit or PRBC on 12/07. EGD 12/05: multiple bleeding duodenal ulcers; one w/ visible ulcer w/ active bleeding. s/p injected/clipped, bleeding subsided. Signs of Anand's Repeat EGD 12/07 secondary to hgb drop: no signs of bleeding. GI following: continue aggressive antacid therapy. If re-bleeds would need transfer for IR embolization; if hgb stable 12/10, can likely be discharged. s/p PPI drip --> now PPI IV BID. Continue Carafate. Advanced to solid food diet. AM CBC #RLE cellulitis (nearly resolved)/severe sepsis (resolved) - present on admission - resolved. Sepsis source: RLE cellulitis. CT right leg: no acute osseous abnormality; nonspecific subQ edema w/ dermal thickening. no fluid collection. with resulting sepsis 2nd to pseudomonas & strep --> wound cultures w/ FQ resistance. BC negative. s/p IV Cefepime Wound nurse consulted: Aquacel ag to open areas. change daily to every other day depending on drainage. #ARACELI 2nd to sepsis-associated ATN - resolved - creatinine at presentation 2, now stable at 0.58 cont to hold lisinopril and HCTZ K mildly low at 3.4 s/p repletion. BMP am #diabetes mellitus - controlled a1c 6.5% in June 2024 hold metformin BSGs ac/hs cont novolog prn #morbid obesity - BMI 42 #HTN -cont to hold all anti-hypertensives #DVT of RLE - single DVT of gastrocnemius vein -- repeat Doppler US 12/06 revealed stable gastrocnemius vein. HOLD anticoagulation in setting of acute GI bleeding. Continue to monitor symptoms. Will re-discuss when able if anticoagulation can be resumed. PT/OT evals completed; will need rehab at [place] post-d/c Code: full DVT prophylaxis: hold in setting of GI bleed. Discussed w/ CM patient can likely go to [place] on 12/10 Admission and Anticipated Discharge Date Admission Date: December 01, 2024 Angie Crowe was seen & examined this morning. He feels well today, denies any complaints. Physical Exam Physical Exam: General: NAD, VS: BP 130/76; P81; R16; T36.6C Resp: normal respiratory effort Extremities: no edema Neuro: A&O x3 Skin: intact, no lesions noted. RLE w/o erythema or drainage. Results & Data Results & Data Vital Signs (Past 12 Hours) Vital Signs Temp Pulse Pulse Resp BP Pulse Ox O2 Del Method 12/09/24 08:13 81 12/09/24 07:59 36.6 C 84 16 130/76 98 Room Air 12/09/24 07:56 Room Air 12/09/24 03:29 36.4 C L 78 19 168/83 H 96 Room Air PG Care Time/CCT Total # of Minutes Spent Total Time Spent with Patient: Total time spent is greater than 50% in coordination of care (as documented) at patient's floor/unit and/or counseling patient: Coding Level of Care Code 05911 SUB INP/OBS CARE 2/35MIN Diagnoses Upper GI bleeding K92.2 Duodenal ulcer hemorrhage K26.4 Acute blood loss anemia D62 Hypotension I95.9 Cellulitis of right leg L03.115 Sepsis A41.9 ATN (acute tubular necrosis) N17.0 ARACELI (acute kidney injury) N17.9 Diabetes mellitus type 2, uncontrolled Essential hypertension I10 Obesity, Class III, BMI 40-49.9 (morbid obesity) E66.01 Acute deep vein thrombosis of right lower extremity I82.401 Folate deficiency E53.8
[2024-12-09] MEDS: PANTOprazole 40 MG/10 ML SYR IV SCH (21:07)
[2024-12-10 07:56] LABS: Hematocrit (blood only) 23.7 % (42.0-52.0); Hemoglobin 7.9 g/dl (14.0-18.0); Mean Corpuscular Hemoglobin 29.7 pg (25.0-34.0); Mean Corpuscular Volume 89.1 fL (80.0-100.0); Platelet Count 223 K/uL (130-400); RDW Standard Deviation 49.2 fL (36.4-46.3); Red Blood Count 2.66 M/uL (4.70-6.10); White Blood Count 7.95 K/ul (4.8-10.8)
[2024-12-10 08:31] LABS: Anion Gap 4.0 (3-11); Blood Urea Nitrogen 9.0 mg/dl (6-23); Calcium 8.1 mg/dl (8.6-10.3); Carbon Dioxide 25.0 mmol/L (21-32); Chloride 109.0 mmol/L (98-107); Creatinine Clr Calc Pharmacy 189.6 ml/min; Glucose 104.0 mg/dl (70-99(Fasting)); Potassium 3.8 mmol/L (3.5-5.1); Sodium 138.0 mmol/L (136-145)
--- NOTE | 2024-12-10 12:28 | Hospitalist Progress Note ---
Date of Service December 10, 2024 Assessment & Plan (1) Upper GI bleeding: (2) Duodenal ulcer hemorrhage: (3) Acute blood loss anemia: (4) Hypotension: (5) Cellulitis of right leg: (6) Sepsis: (7) ATN (acute tubular necrosis): (8) ARACELI (acute kidney injury): (9) Diabetes mellitus type 2, uncontrolled: (10) Essential hypertension: (11) Obesity, Class III, BMI 40-49.9 (morbid obesity): (12) Acute deep vein thrombosis of right lower extremity: (13) Folate deficiency: Plan 64yo male with history of T2DM, hyperlipidemia, HTN, and morbid obesity presents with several weeks of his "right leg leaking" as well as worsening edema. This was followed by the development of erythema of the distal right leg from just below the right knee down to the right foot. Exam c/w severe RLE cellulitis with resulting severe sepsis on day of admission. #upper GI bleeding with resulting acute blood loss anemia 2nd to duodenal ulcers - Anticoag placed on hold 12/04, required 3 units of PRBCs on 12/05 and additional unit or PRBC on 12/07. EGD 12/05: multiple bleeding duodenal ulcers; one w/ visible ulcer w/ active bleeding. s/p injected/clipped, bleeding subsided. Signs of Anand's Repeat EGD 12/07 secondary to hgb drop: no signs of bleeding. GI following: continue aggressive antacid therapy. If re-bleeds would need transfer for IR embolization; if hgb stable 12/10, can likely be discharged hgb stable at 7.9 w/ repeat pending in PM. s/p PPI drip --> now PPI IV BID. Continue Carafate. Advanced to solid food diet. Did have black BM 12/10 (1st BM since scope on 12/05)- to be expected following acute GI bleed, continue to monitor H&H closely. Expect stool to lighten within next 24-48 hours. #RLE cellulitis (nearly resolved)/severe sepsis (resolved) - present on admission - resolved. Sepsis source: RLE cellulitis. CT right leg: no acute osseous abnormality; nonspecific subQ edema w/ dermal thickening. no fluid collection. with resulting sepsis 2nd to pseudomonas & strep --> wound cultures w/ FQ resistance. BC negative. s/p IV Cefepime Wound nurse consulted: Flowdock to open areas. change daily to every other day depending on drainage. #ARACELI 2nd to sepsis-associated ATN - resolved creatinine at presentation 2, now stable at 0.58 Can resume Lisinopril 12/11. #diabetes mellitus - controlled a1c 6.5% in June 2024 resume Metformin BSGs ac/hs cont novolog prior to meals as necessary #morbid obesity - BMI 42 #HTN -resume anti-hypertensives given stable. #DVT of RLE - single DVT of gastrocnemius vein -- repeat Doppler US 12/06 revealed stable gastrocnemius vein. HOLD anticoagulation in setting of acute GI bleeding. Continue to monitor symptoms. Will re-discuss when able if anticoagulation can be resumed. PT/OT evals completed; will need rehab at [facility] post-d/c Code: full DVT prophylaxis: hold in setting of GI bleed. P2P completed 12/09, insurance required additional information following P2P & awaiting their decision. Admission and Anticipated Discharge Date Admission Date: December 01, 2024 Angie Crowe was seen & examined this morning. he reports to be feeling well today. He did have a black BM this morning per nursing report. Denies any dizziness. Physical Exam Physical Exam: General: NAD, VS: BP 160/92; P84; R16; T36.9C Resp: normal respiratory effort Neuro: A&O x3, pleasant Skin: intact, flaky skin on b/l LE extremities. + Venous stasis. Results & Data Results & Data Vital Signs (Past 12 Hours) Vital Signs Temp Pulse Resp BP Pulse Ox O2 Del Method 12/10/24 07:01 36.9 C 84 16 160/92 H 98 Room Air PG Care Time/CCT Total # of Minutes Spent Total Time Spent with Patient: Total time spent is greater than 50% in coordination of care (as documented) at patient's floor/unit and/or counseling patient: Coding Level of Care Code 25955 SUB INP/OBS CARE 2/35MIN Diagnoses Upper GI bleeding K92.2 Duodenal ulcer hemorrhage K26.4 Acute blood loss anemia D62 Hypotension I95.9 Cellulitis of right leg L03.115 Sepsis A41.9 ATN (acute tubular necrosis) N17.0 ARACELI (acute kidney injury) N17.9 Diabetes mellitus type 2, uncontrolled Essential hypertension I10 Obesity, Class III, BMI 40-49.9 (morbid obesity) E66.01 Acute deep vein thrombosis of right lower extremity I82.401 Folate deficiency E53.8
[2024-12-10 14:37] LABS: Hematocrit (blood only) 26.0 % (42.0-52.0); Hemoglobin 8.3 g/dl (14.0-18.0)
[2024-12-11 07:11] LABS: Hematocrit (blood only) 23.1 % (42.0-52.0); Hemoglobin 7.5 g/dl (14.0-18.0)
[2024-12-11] MEDS: ATORVASTATIN 40 MG TAB PO SCH (08:13)
[2024-12-11] MEDS: METOPROLOL SUCC 50MG EXT REL TAB PO SCH (08:13)
[2024-12-11 08:50] LABS: Anion Gap 4 (3-11); Blood Urea Nitrogen 9 mg/dl (6-23); Calcium 7.9 mg/dl (8.6-10.3); Carbon Dioxide 25 mmol/L (21-32); Chloride 108 mmol/L (98-107); Creatinine Clr Calc Pharmacy 196.4 ml/min; Glucose 108 mg/dl (70-99(Fasting)); Potassium 3.6 mmol/L (3.5-5.1); Sodium 137 mmol/L (136-145)
[2024-12-11 08:51] LABS: Total Iron Binding Cap Calc 216 mcg/dl (250-450); Transferrin 154 mg/dl (200-360)
[2024-12-11 09:12] LABS: Iron < 10 mcg/dl (35-175)
[2024-12-11] MEDS: FERROUS SULFATE 325 MG TAB PO SCH (10:34)
[2024-12-11] MEDS: IRON SUCROSE 200 MG in SODIUM CHLORIDE 0.9% 100 ML IV ONE (11:21)
--- NOTE | 2024-12-11 11:57 | Hospitalist Progress Note ---
Date of Service December 11, 2024 Assessment & Plan (1) Upper GI bleeding: (2) Duodenal ulcer hemorrhage: (3) Acute blood loss anemia: (4) Hypotension: (5) Cellulitis of right leg: (6) Sepsis: (7) ATN (acute tubular necrosis): (8) ARACELI (acute kidney injury): (9) Diabetes mellitus type 2, uncontrolled: (10) Essential hypertension: (11) Obesity, Class III, BMI 40-49.9 (morbid obesity): (12) Acute deep vein thrombosis of right lower extremity: (13) Folate deficiency: Plan 64yo male with history of T2DM, hyperlipidemia, HTN, and morbid obesity presents with several weeks of his "right leg leaking" as well as worsening edema. #upper GI bleeding with resulting acute blood loss anemia 2nd to duodenal ulcers - Anticoag placed on hold 12/04, required 3 units of PRBCs on 12/05 and additional unit or PRBC on 12/07. EGD 12/05: multiple bleeding duodenal ulcers; one w/ visible ulcer w/ active bleeding. s/p injected/clipped, bleeding subsided. Signs of Anand's Repeat EGD 12/07 secondary to hgb drop: no signs of bleeding. GI following: continue aggressive antacid therapy. If re-bleeds would need transfer for IR embolization; if hgb stable 12/10, can likely be discharged Hgb dropped to 7.5 but repeat 8.5 in afternoon on 12/11. . s/p PPI drip --> now PPI IV BID. Continue Carafate. Advanced to solid food diet. Did have black BM 12/10 (1st BM since scope on 12/05)- to be expected following acute GI bleed, continue to monitor H&H closely. Expect stool to lighten within next 24-48 hours. #Iron deficiency anemia in the setting of acute GI bleeding as above. Iron panel: Fe < 10, TIBC 216, Transferrin 154, Transferrin % TNP Start daily iron supplementation --> can darken stools s/p IV Venofer 12/11 --> plan for 1-2 additional IV iron infusions while he remains inpatient. #DVT of RLE - single DVT of gastrocnemius vein -- repeat Doppler US 12/06 revealed stable gastrocnemius vein. HOLD anticoagulation in setting of acute GI bleeding. Continue to monitor symptoms. Will re-discuss when able if anticoagulation can be resumed. Consider repeat doppler US prior to discharge to reassess stability. #RLE cellulitis (nearly resolved)/severe sepsis (resolved) - present on ad mission - resolved. Sepsis source: RLE cellulitis. CT right leg: no acute osseous abnormality; nonspecific subQ edema w/ dermal thickening. no fluid collection. with resulting sepsis 2nd to pseudomonas & strep --> wound cultures w/ FQ resistance. BC negative. s/p IV Cefepime Wound nurse consulted: Aquacel ag to open areas. change daily to every other day depending on drainage. #ARACELI 2nd to sepsis-associated ATN - resolved creatinine at presentation 2, now stable at 0.56 #diabetes mellitus - controlled a1c 6.5% in June 2024 resume Metformin BSGs ac/hs cont NovoLog prior to meals as necessary #morbid obesity - BMI 42 #HTN -resume anti-hypertensives given stable. PT/OT evals completed; will need rehab at [facility] post-d/c Code: full DVT prophylaxis: hold in setting of GI bleed. Insurance denied P2P for SNF rehab on 12/10 despite ongoing medical concerns. Sebastien remains at increased risk if discharged home due to impaired ambulation, high fall risk, and lack of adequate support for safe mobility. Additionally, he does not have reliable living conditions, further compromising safety. In addition to mobility concerns, Sebastien remains at high risk of re-bleeding from his GI tract. Close monitoring of hemoglobin is required given recent decline and ongoing risk, which cannot be reliably managed in his current home setting. Discharge home at this time poses significant safety concerns and now hospitalization will be prolonged secondary to ensure safe transition of care. Admission and Anticipated Discharge Date Admission Date: December 01, 2024 Angie Crowe was seen & examined this morning. He reports to be feeling well today. He was tolerating his iron infusion well at time of encounter. Denies any complaints. Physical Exam Physical Exam: General: NAD, VS: BP 126/73; P90; R16; T36.8 Resp: normal respiratory effort Extremities: Moves all extremities, + LE edema & venous stasis in b/l Neuro: A&O x3 Skin: intact, no lesions noted, R leg wrapped Results & Data Results & Data Vital Signs (Past 12 Hours) Vital Signs Temp Pulse Resp BP Pulse Ox O2 Del Method 12/11/24 07:49 36.8 C 90 16 126/73 97 Room Air 12/11/24 07:30 Room Air PG Care Time/CCT Total # of Minutes Spent Total Time Spent with Patient: Total time spent is greater than 50% in coordination of care (as documented) at patient's floor/unit and/or counseling patient: Coding Level of Care Code 65226 SUB INP/OBS CARE 2/35MIN Diagnoses Upper GI bleeding K92.2 Duodenal ulcer hemorrhage K26.4 Acute blood loss anemia D62 Hypotension I95.9 Cellulitis of right leg L03.115 Sepsis A41.9 ATN (acute tubular necrosis) N17.0 ARACELI (acute kidney injury) N17.9 Diabetes mellitus type 2, uncontrolled Essential hypertension I10 Obesity, Class III, BMI 40-49.9 (morbid obesity) E66.01 Acute deep vein thrombosis of right lower extremity I82.401 Folate deficiency E53.8
[2024-12-11 14:06] LABS: Hematocrit (blood only) 26.7 % (42.0-52.0); Hemoglobin 8.5 g/dl (14.0-18.0)
[2024-12-12 06:56] LABS: Hematocrit (blood only) 25.3 % (42.0-52.0); Hemoglobin 8.1 g/dl (14.0-18.0); Mean Corpuscular Hemoglobin 28.6 pg (25.0-34.0); Mean Corpuscular Volume 89.4 fL (80.0-100.0); Platelet Count 229 K/uL (130-400); RDW Standard Deviation 52.3 fL (36.4-46.3); Red Blood Count 2.83 M/uL (4.70-6.10); White Blood Count 6.60 K/ul (4.8-10.8)
[2024-12-12] MEDS: IRON SUCROSE 200 MG in SODIUM CHLORIDE 0.9% 100 ML IV ONE (08:31)
--- NOTE | 2024-12-12 11:29 | Hospitalist Progress Note ---
Date of Service December 12, 2024 Assessment & Plan (1) Upper GI bleeding: (2) Duodenal ulcer hemorrhage: (3) Acute blood loss anemia: (4) Hypotension: (5) Cellulitis of right leg: (6) Sepsis: (7) ATN (acute tubular necrosis): (8) ARACELI (acute kidney injury): (9) Diabetes mellitus type 2, uncontrolled: (10) Essential hypertension: (11) Obesity, Class III, BMI 40-49.9 (morbid obesity): (12) Acute deep vein thrombosis of right lower extremity: (13) Folate deficiency: Plan 64yo male with history of T2DM, hyperlipidemia, HTN, and morbid obesity presents with several weeks of his "right leg leaking" as well as worsening edema. #upper GI bleeding with resulting acute blood loss anemia 2nd to duodenal ulcers - Anticoagulation placed on hold 12/04, required 3 units of PRBCs on 12/05 and additional unit or PRBC on 12/07. EGD 12/05: multiple bleeding duodenal ulcers; one w/ visible ulcer w/ active bleeding. s/p injected/clipped, bleeding subsided. Signs of Anand's --> path negative for H. pylori Repeat EGD 12/07 secondary to hgb drop: no signs of bleeding. GI consulted: will require follow up EGD in 2-3 months following discharge. Hgb stable at 8.1. s/p PPI drip --> now PPI IV BID; Continue Carafate. #Iron deficiency anemia in the setting of acute GI bleed as above. Iron panel: Fe < 10, TIBC 216, Transferrin 154, Transferrin % TNP Start daily iron supplementation --> can darken stools s/p IV Venofer 12/11 & 12/12 --> consider 1 additional dose of Venofer on 12/13. #DVT of RLE single DVT of gastrocnemius vein -- repeat Doppler US 12/06 revealed stable gastrocnemius vein. HOLD anticoagulation in setting of acute GI bleeding. Consider repeat Doppler US prior to discharge to reassess stability. #RLE cellulitis (nearly resolved)/severe sepsis (resolved) - present on admission - resolved. Sepsis source: RLE cellulitis. CT right leg: no acute osseous abnormality; nonspecific subQ edema w/ dermal thickening. no fluid collection. with resulting sepsis 2nd to pseudomonas & strep --> wound cultures w/ FQ resistance. BC negative. s/p IV Cefepime Wound nurse consulted: Aquacel ag to open areas. change daily to every other day depending on drainage. #ARACELI 2nd to sepsis-associated ATN - resolved creatinine at presentation 2, now stable at 0.56 #diabetes mellitus - controlled a1c 6.5% in June 2024 resume Metformin BSGs ac/hs cont NovoLog prior to meals as necessary #morbid obesity - BMI 42 #HTN Resumed Lisinopril 20mg & Metoprolol succinate 100mg on 12/11. --> pt w/ mildly low BP following. Hold Lisinopril 20mg, will likely need decreased or discontinued on discharge. Continue Metoprolol succinate. PT/OT evals completed; recommending rehab. Code: full DVT prophylaxis: hold in setting of recent GI bleed. Insurance denied P2P for SNF rehab on 12/10 despite ongoing medical concerns. Sebastien remains at increased risk if discharged home due to impaired ambulation, high fall risk, and lack of adequate support for safe mobility. Additionally, he does not have reliable living conditions, further compromising safety. In addition to mobility concerns, Sebastien remains at high risk of re-bleeding from his GI tract. Close monitoring of hemoglobin is required given recent decline and ongoing risk, which cannot be reliably managed in his current home setting. Discharge home at this time poses significant safety concerns and now hospitalization will be prolonged secondary to ensure safe transition of care. Admission and Anticipated Discharge Date Admission Date: December 01, 2024 Angie Crowe was seen & examined this morning. He reports he is feeling well today & denied any complaints. Physical Exam Physical Exam: General: NAD, VS: BP 109/70; P71; R18; T36.5C Resp: normal respiratory effort Extremities: +LE edema b/l, nonpitting. Venous stasis b/l. R foot wrapped in gauze. Neuro: A&O x3 Skin: intact, no lesions noted Results & Data Results & Data Vital Signs (Past 12 Hours) Vital Signs Temp Pulse Resp BP Pulse Ox O2 Del Method 12/12/24 07:17 36.6 C 76 18 104/61 97 Room Air PG Care Time/CCT Total # of Minutes Spent Total Time Spent with Patient: Total time spent is greater than 50% in coordination of care (as documented) at patient's floor/unit and/or counseling patient: Coding Level of Care Code 35675 SUB INP/OBS CARE 2/35MIN Diagnoses Upper GI bleeding K92.2 Duodenal ulcer hemorrhage K26.4 Acute blood loss anemia D62 Hypotension I95.9 Cellulitis of right leg L03.115 Sepsis A41.9 ATN (acute tubular necrosis) N17.0 ARACELI (acute kidney injury) N17.9 Diabetes mellitus type 2, uncontrolled Essential hypertension I10 Obesity, Class III, BMI 40-49.9 (morbid obesity) E66.01 Acute deep vein thrombosis of right lower extremity I82.401 Folate deficiency E53.8
[2024-12-13 07:15] LABS: Hematocrit (blood only) 23.8 % (42.0-52.0); Hemoglobin 7.8 g/dl (14.0-18.0); Mean Corpuscular Hemoglobin 29.2 pg (25.0-34.0); Mean Corpuscular Volume 89.1 fL (80.0-100.0); Platelet Count 230 K/uL (130-400); RDW Standard Deviation 51.5 fL (36.4-46.3); Red Blood Count 2.67 M/uL (4.70-6.10); White Blood Count 5.30 K/ul (4.8-10.8)
--- NOTE | 2024-12-13 08:35 | Hospitalist Progress Note ---
Date of Service December 13, 2024 Assessment & Plan (1) Upper GI bleeding: (2) Duodenal ulcer hemorrhage: (3) Acute blood loss anemia: (4) Hypotension: (5) Cellulitis of right leg: (6) Sepsis: (7) ATN (acute tubular necrosis): (8) ARACELI (acute kidney injury): (9) Diabetes mellitus type 2, uncontrolled: (10) Essential hypertension: (11) Obesity, Class III, BMI 40-49.9 (morbid obesity): (12) Acute deep vein thrombosis of right lower extremity: (13) Folate deficiency: Plan 64yo male with history of T2DM, hyperlipidemia, HTN, and morbid obesity presents with several weeks of his "right leg leaking" as well as worsening edema. #upper GI bleeding with resulting acute blood loss anemia 2nd to duodenal ulcers Anticoagulation placed on hold 12/04 Completed IV Protonix drip Required 3 units of PRBCs on 12/05 and additional unit on 12/07 EGD 12/05: multiple bleeding duodenal ulcers; one w/ visible ulcer w/ active bleeding. s/p injected/clipped, bleeding subsided. Signs of Anand's --> path negative for H. pylori Repeat EGD 12/07 secondary to hgb drop: no signs of bleeding. GI consulted: will require follow up EGD in 2-3 months following discharge Hgb low, but stable; Hgb trend: 7.5 -> 8.5 -> 8.1 -> 7.8 May require additional unit of blood prior to discharge, as patient is at high risk of rebleeding, does not have much buffer room in the event of a rebleed Now tolerating oral intake, will transition to Protonix 40 mg p.o. BID Continue Carafate #Iron deficiency anemia In the setting of acute GI bleed as above. Iron panel: Fe < 10, TIBC 216, Transferrin 154, Transferrin % TNP Start daily iron supplementation --> can darken stools s/p Venofer 200 mg IV x 3 #DVT of RLE DVT of gastrocnemius vein -- repeat Doppler US 12/06 revealed stable gastrocnemius vein. HOLD anticoagulation in setting of acute GI bleeding Consider repeat Doppler US prior to discharge to reassess stability #Diabetes mellitus - controlled A1c elevated at 7.2% on 12/13/24 teradata solution architect consult appreciate Patient's glucose has been stable in the hospital (80 - 124 over the past 48 hours) Continue glucose BSG ACHS Cont NovoLog prior to meals PRN Adjust regimen as needed #Morbid obesity - BMI 42 Noted; weight loss recommended #HTN Resumed Lisinopril 20mg & Metoprolol succinate 100mg on 12/11. --> pt w/ mildly low BP following. Hold Lisinopril 20mg, will likely need decreased or discontinued on discharge. Continue Metoprolol succinate #RLE cellulitis | severe sepsis - present on admission (resolved) Sepsis source: RLE cellulitis. CT right leg: no acute osseous abnormality; nonspecific subQ edema w/ dermal thickening. no fluid collection. with resulting sepsis 2nd to pseudomonas & strep --> wound cultures w/ FQ resistance. BC negative. s/p IV Cefepime Wound nurse consulted: Aquacel ag to open areas. change daily to every other day depending on drainage. #ARACELI 2nd to sepsis-associated ATN (resolved) creatinine at presentation 2, now stable at 0.56 PT/OT evals completed; recommending rehab. Code: full DVT prophylaxis: hold in setting of recent GI bleed. Insurance denied P2P for SNF rehab on 12/10 despite ongoing medical concerns. Sebastien remains at increased risk if discharged home due to impaired ambulation, high fall risk, and lack of adequate support for safe mobility. Additionally, he does not have reliable living conditions, further compromising safety. In addition to mobility concerns, Sebastien remains at high risk of re-bleeding from his GI tract. Close monitoring of hemoglobin is required given recent decline and ongoing risk, which cannot be reliably managed in his current home setting. Discharge home at this time poses significant safety concerns and now hospitalization will be prolonged secondary to ensure safe transition of care. Disposition: Continued stay on PCU telemetry Patient's niece (Clare) is currently appealing SNF denial; goal is for short- term rehab at [facility]; also open to [facility]. CM did suggest PC, but family reportedly does not have the funds for this. PT reevaluation on 12/13: reconfirmed that the patient is not safe to return home at this time and would benefit from inpatient rehab to address his weakness, balance deficits, and functional mobility Admission and Anticipated Discharge Date Admission Date: December 01, 2024 Subjective Mr. Pimentel is doing well this morning. He denies any pain in his right lower extremity. He is happy to report that he was able to ambulate using a walker with PT today, and did well. His only complaint at this time is right shoulder pain; patient gets injections in his right shoulder and slept on it funny last night. Patient did have a bowel movement today, which was "dark and tarry". N ot liquidy. Soft. No BRB in stool. He has had no recurrence of abdominal pain with eating a solid diet. Patient reconfirms that he lives by himself. He ambulates with a cane at baseline, but has not been feeling off balance while using the walker in the hospital. He does endorse lightheadedness whenever he gets up to stand. Additionally, he has had a productive cough (white sputum production). ROS: Patient endorses productive cough, melena, and right shoulder pain. Patient denies fever, chest pain, pleuritic CP, SOB, abdominal pain, nausea, vomiting, or bright red blood in the urine or stool. Review of Systems Review of Systems: See HPI above Physical Exam Physical Exam: General: no acute distress; pleasant affect non-toxic appearing; cooperative; SpO2 98% on RA HEENT: normocephalic, atraumatic; PERRLA; vision and hearing intact Neck: supple; trachea midline Skin: warm, dry without signs of tenting; no cyanosis; no rashes, bruising, lesions, or erythema noted CV: chest wall NTP; RRR; S1/S2 normal; no murmurs/rubs/gallops; pulses intact and symmetric at radial, DP, and PT Lungs: no acute respiratory distress; symmetrical chest wall expansion; clear breath sounds across all lung sarah w/o adventitious sounds; no wheezing ABD: Soft, NTP; BS present; no rebound/guarding; no distention MSK: no tics or fasciculations; no edema noted in the LEs b/l, nonerythematous RLE: Right lower extremity is erythematous below the knee and warm to touch; NTP; ankle wound recently dressed; cam boot in place, however patient demonstrates ability wiggle toes and report sensation is intact and symmetric in the lower extremities bilaterally assessed via light touch at the toes Neuro: A&Ox3; normal mood and affect; fluent speech Results & Data Results & Data Vital Signs (Past 12 Hours) Vital Signs Temp Pulse Resp BP Pulse Ox O2 Del Method 12/13/24 07:53 36.7 C 61 18 112/72 96 Room Air 12/12/24 23:22 37.1 C 74 18 128/81 97 Room Air PG Care Time/CCT Total # of Minutes Spent Total Time Spent with Patient: Total time spent is greater than 50% in coordination of care (as documented) at patient's floor/unit and/or counseling patient: Coding [place] [address] SUB INP/OBS CARE 3/50MIN Patient Type Established History Comprehensive Exam Comprehensive Medical Decision Making High Complexity Diagnoses Upper GI bleeding K92.2 Duodenal ulcer hemorrhage K26.4 Acute blood loss anemia D62 Hypotension I95.9 Cellulitis of right leg L03.115 Sepsis A41.9 ATN (acute tubular necrosis) N17.0 ARACELI (acute kidney injury) N17.9 Diabetes mellitus type 2, uncontrolled Essential hypertension I10 Obesity, Class III, BMI 40-49.9 (morbid obesity) E66.01 Acute deep vein thrombosis of right lower extremity I82.401 Folate deficiency E53.8
[2024-12-13] MEDS: IRON SUCROSE 200 MG in SODIUM CHLORIDE 0.9% 100 ML IV ONE (09:47)
[2024-12-13 09:55] LABS: Anion Gap 4.0 (3-11); Blood Urea Nitrogen 10.0 mg/dl (6-23); Calcium 8.1 mg/dl (8.6-10.3); Carbon Dioxide 25.0 mmol/L (21-32); Chloride 110.0 mmol/L (98-107); Creatinine Clr Calc Pharmacy 207.5 ml/min; Glucose 101.0 mg/dl (70-99(Fasting)); Magnesium 1.5 mg/dl (1.7-2.4); Potassium 3.7 mmol/L (3.5-5.1); Sodium 139.0 mmol/L (136-145)
[2024-12-13 10:10] LABS: Hemoglobin A1C 7.2 % (4.5-5.6)
[2024-12-14] MEDS: ACETAMINOPHEN 325 MG TAB PO PRN (01:33)
[2024-12-14 07:24] LABS: Hematocrit (blood only) 26.3 % (42.0-52.0); Hemoglobin 8.6 g/dl (14.0-18.0); Immature Granulocytes # (auto) 0.06 K/uL (0.01-0.20); Immature Granulocytes % (auto) 1.1 %; Mean Corpuscular Hemoglobin 29.4 pg (25.0-34.0); Mean Corpuscular Volume 89.8 fL (80.0-100.0); Platelet Count 267 K/uL (130-400); RDW Standard Deviation 52.1 fL (36.4-46.3); Red Blood Count 2.93 M/uL (4.70-6.10); White Blood Count 5.62 K/ul (4.8-10.8)
[2024-12-14 07:45] LABS: Anion Gap 5.0 (3-11); Blood Urea Nitrogen 10.0 mg/dl (6-23); Calcium 8.4 mg/dl (8.6-10.3); Carbon Dioxide 28.0 mmol/L (21-32); Chloride 108.0 mmol/L (98-107); Creatinine Clr Calc Pharmacy 186.4 ml/min; Glucose 112.0 mg/dl (70-99(Fasting)); Potassium 3.7 mmol/L (3.5-5.1); Sodium 141.0 mmol/L (136-145)
[2024-12-14] MEDS: FOLIC ACID 1 MG TAB PO SCH (07:45)
--- NOTE | 2024-12-14 15:54 | Hospitalist Progress Note ---
Date of Service December 14, 2024 Assessment & Plan (1) Upper GI bleeding: (2) Duodenal ulcer hemorrhage: (3) Acute blood loss anemia: (4) Hypotension: (5) Cellulitis of right leg: (6) Sepsis: (7) ATN (acute tubular necrosis): (8) ARACELI (acute kidney injury): (9) Diabetes mellitus type 2, uncontrolled: (10) Essential hypertension: (11) Obesity, Class III, BMI 40-49.9 (morbid obesity): (12) Acute deep vein thrombosis of right lower extremity: (13) Folate deficiency: Plan 64yo male with history of T2DM, hyperlipidemia, HTN, and morbid obesity presents with several weeks of his "right leg leaking" as well as worsening edema. #upper GI bleeding with resulting acute blood loss anemia 2nd to duodenal ulcers Anticoagulation placed on hold 12/04 Completed IV Protonix drip Required 3 units of PRBCs on 12/05 and additional unit on 12/07 EGD 12/05: multiple bleeding duodenal ulcers; one w/ visible ulcer w/ active bleeding. s/p injected/clipped, bleeding subsided. Signs of Anand's --> path negative for H. pylori Repeat EGD 12/07 secondary to hgb drop: no signs of bleeding. GI consulted: will require follow up EGD in 2-3 months following discharge Hgb low, but stable; Hgb trend: 7.5 -> 8.5 -> 8.1 -> 7.8 -> 8.6 (stable) May require additional unit of blood prior to discharge, as patient is at high risk of rebleeding, does not have much buffer room in the event of a rebleed Now tolerating oral intake, will transition to Protonix 40 mg p.o. BID Continue Carafate #Iron deficiency anemia In the setting of acute GI bleed as above. Iron panel: Fe < 10, TIBC 216, Transferrin 154, Transferrin % TNP Start daily iron supplementation --> can darken stools s/p Venofer 200 mg IV x 3 #DVT of RLE DVT of gastrocnemius vein -- repeat Doppler US 12/06 revealed stable gastrocnemius vein Reviewed GI notes; per review of EGD performed on 12/07 it was recommended to avoid anticoagulation with Eliquis or heparin type medications for the next 14 days Touched base with vascular surgery on 12/14 to discuss a potential IVC filter given patient's high risk of rebleed Vascular surgery reviewed the imaging, and given the clot in his gastrocnemius vein appears stable, they do not feel like he will need an ticoagulation or an IVC filter Avoid Eliquis, heparin, and aspirin moving forward Consider serial Doppler imaging of the right lower extremity to assess for stability #Diabetes mellitus - controlled A1c elevated at 7.2% on 12/13/24 music educator consult appreciate Patient's glucose has been stable in the hospital (80 - 124 over the past 48 hours) Continue glucose BSG ACHS Cont NovoLog prior to meals PRN Adjust regimen as needed #HTN Resumed Lisinopril 20mg & Metoprolol succinate 100mg on 12/11. --> pt w/ mildly low BP following. Hold Lisinopril 20mg, will likely need decreased or discontinued on discharge. Continue Metoprolol succinate #RLE cellulitis | severe sepsis - present on admission (resolved) Sepsis source: RLE cellulitis. CT right leg: no acute osseous abnormality; nonspecific subQ edema w/ dermal thickening. no fluid collection. with resulting sepsis 2nd to pseudomonas & strep --> wound cultures w/ FQ resistance. BC negative. s/p IV Cefepime Wound nurse consulted: Aquacel ag to open areas. change daily to every other day depending on drainage. DVT prophylaxis: hold in setting of recent GI bleed. Insurance denied P2P for SNF rehab on 12/10 despite ongoing medical concerns. Sebastien remains at increased risk if discharged home due to impaired ambulation, high fall risk, and lack of adequate support for safe mobility. Additionally, he does not have reliable living conditions, further compromising safety. In addition to mobility concerns, Sebastien remains at high risk of re-bleeding from his GI tract. Close monitoring of hemoglobin is required given recent decline and ongoing risk, which cannot be reliably managed in his current home setting. Discharge home at this time poses significant safety concerns and now hospitalization will be prolonged secondary to ensure safe transition of care. PT reevaluation on 12/13: reconfirmed that the patient is not safe to return home at this time and would benefit from inpatient rehab to address his weakness, balance deficits, and functional mobility Disposition: Medically stable for discharge at this time; however, awaiting SNF appeal Patient's niece (Clare) submitted a SNF appeal on 12/13 and they were told they will hear back within 72 hours. Spoke on the phone with patient's niece (Clare) on the evening of 12/14. While there is no medical power of consumer attorney in place, patient's niece is his primary resident hall director. She also reports that the patient spoke to a fire tender today a bout obtaining medical power of consumer attorney for both her and her . At this time, the patient's niece reports that his house is "not fit" for him to live in. He needs new floors, does not have good heating, and may need a ramp to be put in to get into his house. At times, niece is the only one around to take care of him, and she has 5 children at home. She expresses significant concern about him returning home even with home health, and is hoping to have an answer on the appeal in the next 48 hours; she is also hoping to optimize his house for return home by this weekend. Luckily, she reports they were able to obtain a lift chair today and are planning to set it up in his house. She is requesting that we do not discharge him before touching base with her. Admission and Anticipated Discharge Date Admission Date: December 01, 2024 Subjective Mr. Randall is doing well this afternoon. He reports he is largely asymptomatic, except for an aching pain in his right shoulder and a productive cough; no new complaints at this time. He denies any pain in his right lower extremity. Patient did have a bowel movement this morning, but he did not look at the color of it. He does not believe he had any blood in his urine or stool. Overall, he is feeling well, and is looking forward to finding out about the SNF appeal. He is amenable to going home with home health if the appeal is denied. ROS: Patient endorses productive cough (white sputum production), and achy right shoulder pain. Patient denies fever, chills, chest pain, SOB, pain in the right leg, blood in the urine or stool, or melena. Review of Systems Review of Systems: See HPI above Physical Exam Physical Exam: General: no acute distress; pleasant affect; sitting upright in his chair watching TV; non-toxic appearing; cooperative; SpO2 97% on RA HEENT: normocephalic, atraumatic; PERRLA; vision and hearing intact Neck: supple; trachea midline Skin: warm, dry without signs of tenting; no cyanosis; no rashes, bruising, lesions, or erythema noted CV: chest wall NTP; RRR; S1/S2 normal; no murmurs/rubs/gallops; pulses intact and symmetric at radial, DP, and PT Lungs: no acute respiratory distress; symmetrical chest wall expansion; clear breath sounds across all lung sarah w/o adventitious sounds; no wheezing ABD: Soft, NTP; BS present; no rebound/guarding; no distention MSK: no tics or fasciculations; +2 pitting edema in lower extremity bilaterally extending up to the knees RLE: Right lower extremity is erythematous below the knee and warm to touch; NTP; ankle wound recently dressed; cam boot in place, however patient demonstrates ability wiggle toes and report sensation is intact and symmetric in the lower extremities bilaterally assessed via light touch at the toes Neuro: A&Ox3; normal mood and affect; fluent speech; patient reports sensation is intact and symmetric in all EXTR bilaterally assessed via light touch Results & Data Results & Data Vital Signs (Past 12 Hours) Vital Signs Temp Pulse Resp BP Pulse Ox O2 Del Method 12/14/24 15:13 36.5 C 68 16 115/72 97 Room Air 12/14/24 10:28 Room Air 12/14/24 07:26 36.9 C 63 18 120/79 96 Room Air PG Care Time/CCT Total # of Minutes Spent Total Time Spent with Patient: Total time spent is greater than 50% in coordination of care (as documented) at patient's floor/unit and/or counseling patient: C[place] [address] SUB INP/OBS CARE 2/35MIN Patient Type Established History Comprehensive Exam Comprehensive Medical Decision Making Moderate Complexity Diagnoses Upper GI bleeding K92.2 Duodenal ulcer hemorrhage K26.4 Acute blood loss anemia D62 Hypotension I95.9 Cellulitis of right leg L03.115 Sepsis A41.9 ATN (acute tubular necrosis) N17.0 ARACELI (acute kidney injury) N17.9 Diabetes mellitus type 2, uncontrolled Essential hypertension I10 Obesity, Class III, BMI 40-49.9 (morbid obesity) E66.01 Acute deep vein thrombosis of right lower extremity I82.401 Folate deficiency E53.8
--- NOTE | 2024-12-15 09:09 | Communication Note ---
Date of Service: December 15, 2024 This patient has a gastrocnemius vein clot which did not change from 12/02. There was no evidence of DVT. He does not need a filter for this. Being that the clot is in the gastroc vein and there was no propagation, he does not need to be anticoagulated for this clot.
--- NOTE | 2024-12-15 15:51 | Hospitalist Progress Note ---
Date of Service December 15, 2024 Assessment & Plan (1) Upper GI bleeding: (2) Duodenal ulcer hemorrhage: (3) Acute blood loss anemia: (4) Hypotension: (5) Cellulitis of right leg: (6) Sepsis: (7) ATN (acute tubular necrosis): (8) ARACELI (acute kidney injury): (9) Diabetes mellitus type 2, uncontrolled: (10) Essential hypertension: (11) Obesity, Class III, BMI 40-49.9 (morbid obesity): (12) Acute deep vein thrombosis of right lower extremity: (13) Folate deficiency: Plan 64yo male with history of T2DM, hyperlipidemia, HTN, and morbid obesity presents with several weeks of his "right leg leaking" as well as worsening edema. #Upper GI bleeding with resulting acute blood loss anemia 2nd to duodenal ulcers Anticoagulation placed on hold 12/04 Completed IV Protonix drip Required 3 units of PRBCs on 12/05 and additional unit on 12/07 EGD 12/05: multiple bleeding duodenal ulcers; one w/ visible ulcer w/ active bleeding. s/p injected/clipped, bleeding subsided. Signs of Anand's --> path negative for H. pylori Repeat EGD 12/07 secondary to hgb drop: no signs of bleeding. GI consulted: will require follow up EGD in 2-3 months following discharge Hgb low, but stable; Hgb trend: 7.5 -> 8.5 -> 8.1 -> 7.8 -> 8.6 (stable) May require additional unit of blood prior to discharge, as patient is at high risk of rebleeding, does not have much buffer room in the event of a rebleed Now tolerating oral intake, will transition to Protonix 40 mg p.o. BID Continue Carafate #Iron deficiency anemia In the setting of acute GI bleed as above. Iron panel: Fe < 10, TIBC 216, Transferrin 154, Transferrin % TNP Start daily iron supplementation --> can darken stools s/p Venofer 200 mg IV x 3 #DVT of RLE DVT of gastrocnemius vein -- repeat Doppler US 12/06 revealed stable gastrocnemius vein Reviewed GI notes; per review of EGD performed on 12/07 it was recommended to avoid anticoagulation with Eliquis or heparin type medications for the next 14 days Touched base with vascular surgery on 12/14 to discuss a potential IVC filter given patient's high risk of rebleed Vascular surgery reviewed the imaging, and given the clot in his gastrocnemius vein appears stable, they do not feel like he will need an ticoagulation or an IVC filter Avoid Eliquis, heparin, and aspirin moving forward Consider serial Doppler imaging of the right lower extremity to assess for stability #Diabetes mellitus - controlled A1c elevated at 7.2% on 12/13/24 business excellence leader consult appreciated Patient's glucose has been stable in the hospital (80 - 124 over the past 48 hours) Will loosen patient's SSI on 12/15 BSG ACHS Cont NovoLog prior to meals PRN Adjust regimen as needed #HTN Resumed Lisinopril 20mg & Metoprolol succinate 100mg on 12/11. --> pt w/ mildly low BP following. Hold Lisinopril 20mg, will likely need decreased or discontinued on discharge. Continue Metoprolol succinate #RLE cellulitis | severe sepsis - present on admission (resolved) Sepsis source: RLE cellulitis. CT right leg: no acute osseous abnormality; nonspecific subQ edema w/ dermal thickening. no fluid collection. with resulting sepsis 2nd to pseudomonas & strep --> wound cultures w/ FQ resistance. BC negative. s/p IV Cefepime Wound nurse consulted: Aquacel ag to open areas. change daily to every other day depending on drainage. DVT prophylaxis: hold in setting of GI bleed with high risk of rebleeding Insurance denied P2P for SNF rehab on 12/10 despite ongoing medical concerns. Sebastien remains at increased risk if discharged home due to impaired ambulation, high fall risk, and lack of adequate support for safe mobility. Additionally, he does not have reliable living conditions, further compromising safety. In addition to mobility concerns, Sebastien remains at high risk of re-bleeding from his GI tract. Close monitoring of hemoglobin is required given recent decline and ongoing risk, which cannot be reliably managed in his current home setting. Discharge home at this time poses significant safety concerns and now hospitalization will be prolonged secondary to ensure safe transition of care. PT reevaluation on 12/13: reconfirmed that the patient is not safe to return home at this time and would benefit from inpatient rehab to address his weakness, balance deficits, and functional mobility Disposition: Medically stable for discharge at this time; however, awaiting SNF appeal Patient's niece (Clare) submitted a SNF appeal on 12/13 and they were told they will hear back within 72 hours. Likely, nirenetta reports that they were able to obtain a lift chair for patient's home if needed. No updates on appeal process on 12/15. Admission and Anticipated Discharge Date Admission Date: December 01, 2024 Supervising Physician Co-Signing Physician Notes Attending Attestation - Chart reviewed, care plan d/w COLTEN Garcia. I agree w/ the knott components of his documentation. Aiden Curry MD Subjective Mr. Randall is in good spirits this morning after ambulating throughout the hallways with physical therapy. He slept well last night. He reports he is able to get up using a walker to use the bathroom, and does not feel off balance. He is still having slight difficulty when pushing up from his chair. He did have a bowel movement this morning which was formed. No bright red blood in stool. He believes it was "half black, half brown". Overall, he is fairly asymptomatic at this time and reports he is doing well. He has been eating regular food without any nausea, abdominal bloating, or abdominal pain. ROS: Patient endorses mild/aching pain in his right shoulder. Patient denies fevers, chills, night sweats, chest pain, SOB, abdominal pain with eating, melena, bright red blood in stool, or pain/weakness in his legs. Review of Systems Review of Systems: See HPI above Physical Exam Physical Exam: General: no acute distress; pleasant affect; sitting upright in his chair watching TV; non-toxic appearing; cooperative; SpO2 95% on RA HEENT: normocephalic, atraumatic; PERRLA; vision and hearing intact Neck: supple; trachea midline Skin: warm, dry without signs of tenting; no cyanosis; no rashes, bruising, lesions, or erythema noted CV: chest wall NTP; RRR; S1/S2 normal; no murmurs/rubs/gallops; pulses intact and symmetric at radial, DP, and PT Lungs: no acute respiratory distress; symmetrical chest wall expansion; clear breath sounds across all lung sarah w/o adventitious sounds; no wheezing ABD: Soft, NTP; BS present; no rebound/guarding; no distention MSK: no tics or fasciculations; +2 pitting edema in lower extremity bilaterally extending up to the knees RLE: Right lower extremity is erythematous below the knee and warm to touch; NTP; ankle wound recently dressed; cam boot in place, however patient demonstrates ability wiggle toes and report sensation is intact and symmetric in the lower extremities bilaterally assessed via light touch at the toes Neuro: A&Ox3; normal mood and affect; fluent speech; patient reports sensation is intact and symmetric in all EXTR bilaterally assessed via light touch Gait: Ambulated in the hallways with patient; while he does exhibit compensation with his cam walking boot, as well as postural sway, he has exhibits good balance/judgment with a walker; no concerns for falling when walking 30 feet up and down the hallway Results & Data Results & Data Vital Signs (Past 12 Hours) Vital Signs Temp Pulse Resp BP Pulse Ox O2 Del Method 12/15/24 14:33 36.6 C 74 16 114/64 95 Room Air 12/15/24 08:49 81 20 117/70 96 Room Air 12/15/24 07:42 36.7 C 69 18 125/79 96 Room Air 12/15/24 07:25 Room Air PG Care Time/CCT Total # of Minutes Spent Total Time Spent with Patient: Total time spent is greater than 50% in coordination of care (as documented) at patient's floor/unit and/or counseling patient: Coding [place] [address] SUB INP/OBS CARE 3/50MIN Patient Type Established Medical Decision Making High Complexity Diagnoses Upper GI bleeding K92.2 Duodenal ulcer hemorrhage K26.4 Acute blood loss anemia D62 Hypotension I95.9 Cellulitis of right leg L03.115 Sepsis A41.9 ATN (acute tubular necrosis) N17.0 ARACELI (acute kidney injury) N17.9 Diabetes mellitus type 2, uncontrolled Essential hypertension I10 Obesity, Class III, BMI 40-49.9 (morbid obesity) E66.01 Acute deep vein thrombosis of right lower extremity I82.401 Folate deficiency E53.8
[2024-12-15] MEDS ORDERED: GLUCOSE 40% GEL 15 GM TUBE PO PRN (18:00)
[2024-12-15] MEDS ORDERED: DEXTROSE 50% 50 ML SYRINGE IV PRN (18:00)
[2024-12-15] MEDS ORDERED: CARBOHYDRATES FOR HYPOGLYCEMIA PO PRN (18:00)
[2024-12-15] MEDS ORDERED: GLUCOSE 10 TAB/TUBE PO PRN (18:00)
[2024-12-15] MEDS ORDERED: GLUCAGON FOR INJ 1 MG VIAL SQ PRN (18:00)
[2024-12-16 08:47] LABS: Hematocrit (blood only) 26.9 % (42.0-52.0); Hemoglobin 8.4 g/dl (14.0-18.0); Mean Corpuscular Hemoglobin 28.4 pg (25.0-34.0); Mean Corpuscular Volume 90.9 fL (80.0-100.0); Platelet Count 273 K/uL (130-400); RDW Standard Deviation 53.5 fL (36.4-46.3); Red Blood Count 2.96 M/uL (4.70-6.10); White Blood Count 5.57 K/ul (4.8-10.8)
[2024-12-16 09:03] LABS: Anion Gap 5.0 (3-11); Blood Urea Nitrogen 8.0 mg/dl (6-23); Calcium 8.3 mg/dl (8.6-10.3); Carbon Dioxide 28.0 mmol/L (21-32); Chloride 109.0 mmol/L (98-107); Creatinine Clr Calc Pharmacy 229.2 ml/min; Glucose 105.0 mg/dl (70-99(Fasting)); Magnesium 1.4 mg/dl (1.7-2.4); Potassium 3.6 mmol/L (3.5-5.1); Sodium 142.0 mmol/L (136-145)
[2024-12-16] MEDS: MAGNESIUM SULFATE / D5W 1 GM/100 ML BAG IV SCH (10:26)
--- NOTE | 2024-12-16 14:24 | Hospitalist Progress Note ---
Date of Service December 16, 2024 Assessment & Plan (1) Upper GI bleeding: (2) Duodenal ulcer hemorrhage: (3) Acute blood loss anemia: (4) Hypotension: (5) Cellulitis of right leg: (6) Sepsis: (7) ATN (acute tubular necrosis): (8) ARACELI (acute kidney injury): (9) Diabetes mellitus type 2, uncontrolled: (10) Essential hypertension: (11) Obesity, Class III, BMI 40-49.9 (morbid obesity): (12) Acute deep vein thrombosis of right lower extremity: (13) Folate deficiency: Plan 64yo male with history of T2DM, hyperlipidemia, HTN, and morbid obesity presents with several weeks of his "right leg leaking" as well as worsening edema. #Upper GI bleeding with resulting acute blood loss anemia 2nd to duodenal ulcers Anticoagulation placed on hold 12/04 Completed IV Protonix drip Required 3 units of PRBCs on 12/05 and additional unit on 12/07 EGD 12/05: multiple bleeding duodenal ulcers; one w/ visible ulcer w/ active bleeding. s/p injected/clipped, bleeding subsided. Signs of Anand's --> path negative for H. pylori Repeat EGD 12/07 secondary to hgb drop: no signs of bleeding. GI consulted: will require follow up EGD in 2-3 months following discharge Hgb low, but stable; Hgb trend: 7.8 -> 8.6 -> 8.4 May require additional unit of blood prior to discharge, as patient is at high risk of rebleeding, does not have much buffer room in the event of a rebleed Now tolerating oral intake, will transition to Protonix 40 mg p.o. BID Continue Carafate #Iron deficiency anemia In the setting of acute GI bleed as above. Iron panel: Fe < 10, TIBC 216, Transferrin 154, Transferrin % TNP Start daily iron supplementation --> can darken stools s/p Venofer 200 mg IV x 3 #DVT of RLE DVT of gastrocnemius vein -- repeat Doppler US 12/06 revealed stable gastrocnemius vein Reviewed GI notes; per review of EGD performed on 12/07 it was recommended to avoid anticoagulation with Eliquis or heparin type medications for the next 14 days Touched base with vascular surgery on 12/14 to discuss a potential IVC filter given patient's high risk of rebleed Vascular surgery reviewed the imaging, and given the clot in his gastrocnemius vein appears stable, they do not feel like he will need anticoagulation or an IVC filter Avoid Eliquis, heparin, and aspirin moving forward Consider serial Doppler imaging of the right lower extremity to assess for stability #Diabetes mellitus - controlled A1c elevated at 7.2% on 12/13/24 consumer educator consult appreciated Patient's glucose has been stable in the hospital (80 - 124 over the past 48 hours) Will loosen patient's SSI on 12/15 BSG ACHS Cont NovoLog prior to meals PRN Adjust regimen as needed #HTN Resumed Lisinopril 20mg & Metoprolol succinate 100mg on 12/11. --> pt w/ mildly low BP following. Hold Lisinopril 20mg, will likely need decreased or discontinued on discharge. Continue Metoprolol succinate #RLE cellulitis | severe sepsis - present on admission (resolved) Sepsis source: RLE cellulitis. CT right leg: no acute osseous abnormality; nonspecific subQ edema w/ dermal thickening. no fluid collection. with resulting sepsis 2nd to pseudomonas & strep --> wound cultures w/ FQ resistance. BC negative. s/p IV Cefepime Wound nurse consulted: Aquacel ag to open areas. change daily to every other day depending on drainage. DVT prophylaxis: hold in setting of GI bleed with high risk of rebleeding Insurance denied P2P for SNF rehab on 12/10 despite ongoing medical concerns. Sebastien remains at increased risk if discharged home due to impaired ambulation, high fall risk, and lack of adequate support for safe mobility. Additionally, he does not have reliable living conditions, further compromising safety. In addition to mobility concerns, Sebastien remains at high risk of re-bleeding from his GI tract. Close monitoring of hemoglobin is required given recent decline and ongoing risk, which cannot be reliably managed in his current home setting. Discharge home at this time poses significant safety concerns and now hospitalization will be prolonged secondary to ensure safe transition of care. PT reevaluation on 12/13: reconfirmed that the patient is not safe to return home at this time and would benefit from inpatient rehab to address his weakness, balance deficits, and functional mobility Disposition: Medically stable for discharge at this time; however, awaiting SNF appeal Patient's niece (Clare) submitted a SNF appeal on 12/13 and they were told they will hear back within 72 hours. Spoke over the phone with patient's niece on 12/14. Luckily, they were able to obtain a lift chair for patient's home if needed. However, patient's niece is requesting additional days to allow them to optimize his living environment if he is to return home (if SNF denial is upheld) Case management reached out to nasim on 12/16, and left brief voicemail requesting callback; CM to reach out to home health agencies ([facility] or [facility]) to see if patient will be excepted. Spoke over the phone with patient's niece (Clare) on 12/16. She confirms they are able to obtain a lift chair at home. However, they are working to optimize his living environment. Nasim reports there is "no way he can ambulate with a walker" in his current living event. He also has several steps leading up to his home, and she feels that he will be unable to get up the steps without max assistance. They are currently ordering temperature and working on building a ramp. However, they do not feel that the home will be optimized until Wednesday 12/20. They plan to do a lot of work at his house on Monday 12/18. Patient's niece reports no updates on her and regarding the SNF appeal. Admission and Anticipated Discharge Date Admission Date: December 01, 2024 Supervising Physician Co-Signing Physician Notes Attending Attestation - Chart reviewed, care plan d/w COLTEN Garcia. I agree w/ the knott components of his documentation. Aiden Curry MD Subjective Mr. Randall reports he is doing well today other than his right shoulder pain, which kept him up last night. He has minimal pain while sitting upright in the chair, and it is worse when he lies on his flat on his back. Patient had a recent cortisone shot in his right shoulder. He reports that the Tylenol has been helping. Open to trying a lidocaine patch today. Patient reports he was able to ambulate to the bathroom with a walker today. He reports his bowel movement was "normal" and he did not have any melena or blood in his urine or stool. He has been eating and drinking without difficulty or recurrence of abdominal pain, nausea, or bloating. No new complaints at this time. ROS: Patient endorses right shoulder pain. Patient denies fever, chest pain, SOB, cough, abdominal pain, nausea or vomiting with eating, diarrhea, melena, BRB in the bladder or stool, pain in the right lower extremity, or feeling off balance with ambulation. Review of Systems 2 Review of Systems: See HPI above Physical Exam 2 Physical Exam: General: no acute distress; pleasant affect; sitting upright in his chair watching TV; non-toxic appearing; cooperative; SpO2 95% on RA HEENT: normocephalic, atraumatic; PERRLA; vision and hearing intact Neck: supple; trachea midline Skin: warm, dry without signs of tenting; no cyanosis; no rashes, bruising, lesions, or erythema noted CV: chest wall NTP; RRR; S1/S2 normal; no murmurs/rubs/gallops; pulses intact and symmetric at radial, DP, and PT Lungs: no acute respiratory distress; symmetrical chest wall expansion; clear breath sounds across all lung sarah w/o adventitious sounds; no wheezing ABD: Soft, NTP; BS present; no rebound/guarding; no distention MSK: no tics or fasciculations RLE: Right lower extremity is erythematous below the knee; mildly warm to touch (but improvement from prior) NTP; leg was redressed today; circumferential erythema with moderate scaling, but no signs of open wounds, ulcers, weeping, drainage (see photos below); 2+ pitting edema extending from the dorsal aspect of the feet bilaterally up to the knees; patient demonstrates ability wiggle toes and report sensation is intact and symmetric in the lower extremities bilaterally assessed via light touch at the toes Neuro: A&Ox3; normal mood and affect; fluent speech; patient reports sensation is intact and symmetric in all EXTR bilaterally assessed via light touch Results & Data Results & Data Vital Signs (Past 12 Hours) Vital Signs Temp Pulse Resp BP Pulse Ox O2 Del Method 12/16/24 08:45 75 113/69 96 Room Air 12/16/24 07:42 36.7 C 75 18 131/74 98 Room Air 12/16/24 07:35 Room Air PG Care Time/CCT Total # of Minutes Spent Total Time Spent with Patient: Total time spent is greater than 50% in coordination of care (as documented) at patient's floor/unit and/or counseling patient: Coding Level of Care Code 62168 SUB INP/OBS CARE 3/50MIN Diagnoses Upper GI bleeding K92.2 Duodenal ulcer hemorrhage K26.4 Acute blood loss anemia D62 Hypotension I95.9 Cellulitis of right leg L03.115 Sepsis A41.9 ATN (acute tubular necrosis) N17.0 ARACELI (acute kidney injury) N17.9 Diabetes mellitus type 2, uncontrolled Essential hypertension I10 Obesity, Class III, BMI 40-49.9 (morbid obesity) E66.01 Acute deep vein thrombosis of right lower extremity I82.401 Folate deficiency E53.8
[2024-12-16] MEDS: LIDOCAINE 5% 1 PATCH TD STA (15:56)
[2024-12-16] MEDS: REMOVE LIDODERM PATCH SCH (20:00)
--- NOTE | 2024-12-17 13:06 | Hospitalist Progress Note ---
Date of Service December 17, 2024 Assessment & Plan (1) Upper GI bleeding: (2) Duodenal ulcer hemorrhage: (3) Acute blood loss anemia: (4) Hypotension: (5) Cellulitis of right leg: (6) Sepsis: (7) ATN (acute tubular necrosis): (8) ARACELI (acute kidney injury): (9) Diabetes mellitus type 2, uncontrolled: (10) Essential hypertension: (11) Obesity, Class III, BMI 40-49.9 (morbid obesity): (12) Acute deep vein thrombosis of right lower extremity: (13) Folate deficiency: Plan 64yo male with history of T2DM, hyperlipidemia, HTN, and morbid obesity presents with several weeks of his "right leg leaking" as well as worsening edema. #Upper GI bleeding with resulting acute blood loss anemia 2nd to duodenal ulcers Anticoagulation placed on hold 12/04 Completed IV Protonix drip Required 3 units of PRBCs on 12/05 and additional unit on 12/07 EGD 12/05: multiple bleeding duodenal ulcers; one w/ visible ulcer w/ active bleeding. s/p injected/clipped, bleeding subsided. Signs of Anand's --> path negative for H. pylori Repeat EGD 12/07 secondary to hgb drop: no signs of bleeding. GI consulted: will require follow up EGD in 2-3 months following discharge Hgb low, but stable; Hgb trend: 7.8 -> 8.6 -> 8.4 May require additional unit of blood prior to discharge, as patient is at high risk of rebleeding, does not have much buffer room in the event of a rebleed Continue Carafate & Protonix 40mg BID #Iron deficiency anemia In the setting of acute GI bleed as above. Iron panel: Fe < 10, TIBC 216, Transferrin 154, Transferrin % TNP Start daily iron supplementation --> can darken stools s/p Venofer 200 mg IV x 3 #DVT of RLE DVT of gastrocnemius vein -- repeat Doppler US 12/06 revealed stable gastrocnemius vein Reviewed GI notes; per review of EGD performed on 12/07 it was recommended to avoid anticoagulation with Eliquis or heparin type medications for the next 14 days Touched base with vascular surgery on 12/14 to discuss a potential IVC filter given patient's high risk of rebleed --> reviewed imaging, and given the clot in his gastrocnemius vein appears stable, they do not feel like he will need anticoagulation or an IVC filter Avoid Eliquis, heparin, and aspirin moving forward Consider serial Doppler imaging of the right lower extremity to assess for stability #Diabetes mellitus - controlled A1c elevated at 7.2% on 12/13/24 development educator consult appreciated Patient's glucose has been stable in the hospital (80 - 124 over the past 48 hours) Will loosen patient's SSI on 12/15 BSG ACHS; Cont NovoLog prior to meals PRN Adjust regimen as needed #HTN Lisinopril reduced to 10mg daily, BP's remain normotensive Continue Metoprolol succinate #RLE cellulitis | severe sepsis - present on admission (resolved) Sepsis source: RLE cellulitis. CT right leg: no acute osseous abnormality; nonspecific subQ edema w/ dermal thickening. no fluid collection. with resulting sepsis 2nd to pseudomonas & strep --> wound cultures w/ FQ resistance. BC negative. s/p IV Cefepime Wound nurse consulted: Aquacel ag to open areas. change daily to every other day depending on drainage. DVT prophylaxis: hold in setting of GI bleed with high risk of rebleeding Insurance denied P2P for SNF rehab on 12/10 despite ongoing medical concerns. Sebastien remains at increased risk if discharged home due to impaired ambulation, high fall risk, and lack of adequate support for safe mobility. Additionally, he does not have reliable living conditions, further compromising safety. In addition to mobility concerns, Sebastien remains at high risk of re-bleeding from his GI tract. Close monitoring of hemoglobin is required given recent decline and ongoing risk, which cannot be reliably managed in his current home setting. Discharge home at this time poses significant safety concerns and now hospitalization will be prolonged secondary to ensure safe transition of care. PT reevaluation on 12/13: reconfirmed that the patient is not safe to return home at this time and would benefit from inpatient rehab to address his weakness, balance deficits, and functional mobility Patient's niece (Clare) submitted a SNF appeal on 12/13 and they were told they will hear back within 72 hours. Spoke over the phone with patient's niece on 12/14. Luckily, they were able to obtain a lift chair for patient's home if needed. However, patient's niece is requesting additional days to allow them to optimize his living environment if he is to return home (if SNF denial is upheld) Case management reached out to niece on 12/16, and left brief voicemail requesting callback; CM to reach out to home health agencies ([facility] or [facility]) to see if patient will be excepted. Spoke over the phone with patient's niece (Claer) on 12/16. She confirms they are able to obtain a lift chair at home. However, they are working to optimize his living environment. Niece reports there is "no way he can ambulate with a walker" in his current living event. He also has several steps leading up to his home, and she feels that he will be unable to get up the steps without max assistance. They are currently ordering temperature and working on building a ramp. However, they do not feel that the home will be optimized until Thursday 12/21. They plan to do a lot of work at his house on Monday 12/18. Patient's niece reports on 12/17 that SNF appeal is still in review. Disposition: Medically stable for discharge at this time; however, awaiting SNF appeal Admission and Anticipated Discharge Date Admission Date: December 01, 2024 Supervising Physician Co-Signing Physician Notes Attending Attestation - Chart reviewed, care plan d/w COLTEN Garcia. I agree w/ the knott components of his documentation. Aiden Crowe was seen & examined this morning. He is feeling well today. Denies any complaints. States he was able to ambulate to the restroom on his own. Physical Exam Physical Exam: General: NAD, VS: BP 135/75; P71; R18; T37.0C Resp: normal respiratory effort Neuro: A&O x3 Skin: intact Results & Data Results & Data Vital Signs (Past 12 Hours) Vital Signs Temp Pulse Resp BP Pulse Ox O2 Del Method 12/17/24 11:03 Room Air 12/17/24 07:43 37.0 C 71 18 135/75 96 Room Air PG Care Time/CCT Total # of Minutes Spent Total Time Spent with Patient: Total time spent is greater than 50% in coordination of care (as documented) at patient's floor/unit and/or counseling patient: Coding Level of Care Code 10412 SUB INP/OBS CARE 04/03MIN Diagnoses Upper GI bleeding K92.2 Duodenal ulcer hemorrhage K26.4 Acute blood loss anemia D62 Hypotension I95.9 Cellulitis of right leg L03.115 Sepsis A41.9 ATN (acute tubular necrosis) N17.0 ARACELI (acute kidney injury) N17.9 Diabetes mellitus type 2, uncontrolled Essential hypertension I10 Obesity, Class III, BMI 40-49.9 (morbid obesity) E66.01 Acute deep vein thrombosis of right lower extremity I82.401 Folate deficiency E53.8
--- NOTE | 2024-12-18 16:45 | Hospitalist Progress Note ---
Date of Service December 18, 2024 Assessment & Plan (1) Upper GI bleeding: (2) Duodenal ulcer hemorrhage: (3) Acute blood loss anemia: (4) Hypotension: (5) Cellulitis of right leg: (6) Sepsis: (7) ATN (acute tubular necrosis): (8) ARACELI (acute kidney injury): (9) Diabetes mellitus type 2, uncontrolled: (10) Essential hypertension: (11) Obesity, Class III, BMI 40-49.9 (morbid obesity): (12) Acute deep vein thrombosis of right lower extremity: (13) Folate deficiency: Plan 64yo male with history of T2DM, hyperlipidemia, HTN, and morbid obesity presents with several weeks of his "right leg leaking" as well as worsening edema. #Upper GI bleeding with resulting acute blood loss anemia 2nd to duodenal ulcers Avoid anticoagulation Completed IV Protonix drip Required 3 units of PRBCs on 12/05 and additional unit on 12/07 EGD 12/05: multiple bleeding duodenal ulcers; one w/ visible ulcer w/ active bleeding. s/p injected/clipped, bleeding subsided. Signs of Anand's --> path negative for H. pylori Repeat EGD 12/07 secondary to hgb drop: no signs of bleeding. GI consulted: will require follow up EGD in 2-3 months following discharge Hgb low, but stable; Hgb trend: 7.8 -> 8.6 -> 8.4 May require additional unit of blood prior to discharge, as patient is at high risk of rebleeding, does not have much buffer room in the event of a rebleed Continue Carafate & Protonix 40mg BID #Right shoulder pain Lidocaine patch HS #Iron deficiency anemia In the setting of acute GI bleed as above. Iron panel: Fe < 10, TIBC 216, Transferrin 154, Transferrin % TNP Start daily iron supplementation --> can darken stools s/p Venofer 200 mg IV x 3 #DVT of RLE DVT of gastrocnemius vein -- repeat Doppler US 12/06 revealed stable gastrocnemius vein Reviewed GI notes; per review of EGD performed on 12/07 it was recommended to avoid anticoagulation with Eliquis or heparin type medications for the next 14 days Touched base with vascular surgery on 12/14 to discuss a potential IVC filter given patient's high risk of rebleed --> reviewed imaging, and given the clot in his gastrocnemius vein appears stable, they do not feel like he will need anticoagulation or an IVC filter Avoid Eliquis, heparin, and aspirin moving forward Consider serial Doppler imaging of the right lower extremity to assess for stability #Diabetes mellitus - controlled A1c elevated at 7.2% on 12/13/24 school vocational educator consult appreciated Patient's glucose has been stable in the hospital (80 - 124 over the past 48 hours) Will loosen patient's SSI on 12/15 BSG ACHS; Cont NovoLog prior to meals PRN Adjust regimen as needed #HTN Lisinopril reduced to 10mg daily, BP's remain normotensive Continue Metoprolol succinate #RLE cellulitis | severe sepsis - present on admission (resolved) Sepsis source: RLE cellulitis. CT right leg: no acute osseous abnormality; nonspecific subQ edema w/ dermal thickening. no fluid collection. with resulting sepsis 2nd to pseudomonas & strep --> wound cultures w/ FQ resistance. BC negative. s/p IV Cefepime Wound nurse consulted: Aquacel ag to open areas. change daily to every other day depending on drainage. DVT prophylaxis: hold in setting of GI bleed with high risk of rebleeding Insurance denied P2P for SNF rehab on 12/10 despite ongoing medical concerns. Sebastien remains at increased risk if discharged home due to impaired ambulation, high fall risk, and lack of adequate support for safe mobility. Additionally, he does not have reliable living conditions, further compromising safety. In addition to mobility concerns, Sebastien remains at high risk of re-bleeding from his GI tract. Close monitoring of hemoglobin is required given recent decline and ongoing risk, which cannot be reliably managed in his current home setting. Discharge home at this time poses significant safety concerns and now hospitalization will be prolonged secondary to ensure safe transition of care. PT reevaluation on 12/13: reconfirmed that the patient is not safe to return home at this time and would benefit from inpatient rehab to address his weakness, balance deficits, and functional mobility Patient's niece (Clare) submitted a SNF appeal on 12/13 and they were told they will hear back within 72 hours. Spoke over the phone with patient's niece on 12/14. Luckily, they were able to obtain a lift chair for patient's home if needed. However, patient's niece is requesting additional days to allow them to optimize his living environment if he is to return home (if SNF denial is upheld) Case management reached out to niece on 12/16, and left brief voicemail requesting callback; CM to reach out to home health agencies ([facility] or [facility]) to see if patient will be excepted. Spoke over the phone with patient's niece (Clare) on 12/16. She confirms they are able to obtain a lift chair at home. However, they are working to optimize his living environment. Niece reports there is "no way he can ambulate with a walker" in his current living event. He also has several steps leading up to his home, and she feels that he will be unable to get up the steps without max assistance. They are currently ordering temperature and working on building a ramp. However, they do not feel that the home will be optimized until Thursday 12/21. They plan to do a lot of work to optimize his house on Monday 12/18. Disposition: Medically stable for discharge at this time; however, awaiting SNF appeal vs. home with Plan for discharge on Thursday 12/21 Admission and Anticipated Discharge Date Admission Date: December 01, 2024 Supervising Physician Co-Signing Physician Notes Attending Attestation - Chart reviewed, care plan d/w COLTEN Garcia. I agree w/ the knott components of his documentation. Aiden Curry MD Subjective Mr. Randall is doing well this afternoon. He is excited to report that he was up ambulating throughout the hallways with PT today, did not feel off balance. He is still compensating when he walks because of his right foot boot, but otherwise feels well. Slept well. However, he is still having pain in the right shoulder, that particularly [place] when he sleeps. He would like to try a lidocaine patch night overnight. No diarrhea or blood in the urine or stool to his knowledge. Tolerating solid diet without setbacks. ROS: Patient denies lightheadedness with walking, pain with eating, right lower extremity pain, melena, blood in stool/urine, or diarrhea. Review of Systems Review of Systems: See HPI above Physical Exam Physical Exam: General: no acute distress; pleasant affect; sitting upright in his chair watching TV; non-toxic appearing; cooperative; SpO2 95% on RA HEENT: normocephalic, atraumatic; PERRLA; vision and hearing intact Neck: supple; trachea midline Skin: warm, dry without signs of tenting; no cyanosis; no rashes, bruising, lesions, or erythema noted CV: chest wall NTP; RRR; S1/S2 normal; no murmurs/rubs/gallops; pulses intact and symmetric at radial, DP, and PT Lungs: no acute respiratory distress; symmetrical chest wall expansion; clear breath sounds across all lung sarah w/o adventitious sounds; no wheezing ABD: Soft, NTP; BS present; no rebound/guarding; no distention MSK: no tics or fasciculations RLE: Right lower extremity is erythematous below the knee; mildly warm to touch (but improvement from prior) NTP; circumferential erythema with moderate scaling; currently dressed; 2+ pitting edema extending from the dorsal aspect of the feet bilaterally up to the knees; patient demonstrates ability wiggle toes and report sensation is intact and symmetric in the lower extremities bilaterally assessed via light touch at the toes Neuro: A&Ox3; normal mood and affect; fluent speech; patient reports sensation is intact and symmetric in all EXTR bilaterally assessed via light touch Results & Data Results & Data Vital Signs (Past 12 Hours) Vital Signs Temp Pulse Resp BP Pulse Ox O2 Del Method 12/18/24 15:55 36.7 C 72 18 122/70 94 Room Air 12/18/24 07:23 36.4 C L 72 18 124/72 94 Room Air PG Care Time/CCT Total # of Minutes Spent Total Time Spent with Patient: Total time spent is greater than 50% in coordination of care (as documented) at patient's floor/unit and/or counseling patient: Coding [place] [address] SUB INP/OBS CARE 2/35MIN Patient Type Established Medical Decision Making Low Complexity Diagnoses Upper GI bleeding K92.2 Duodenal ulcer hemorrhage K26.4 Acute blood loss anemia D62 Hypotension I95.9 Cellulitis of right leg L03.115 Sepsis A41.9 ATN (acute tubular necrosis) N17.0 ARACELI (acute kidney injury) N17.9 Diabetes mellitus type 2, uncontrolled Essential hypertension I10 Obesity, Class III, BMI 40-49.9 (morbid obesity) E66.01 Acute deep vein thrombosis of right lower extremity I82.401 Folate deficiency E53.8
[2024-12-18] MEDS: LIDOCAINE 5% 1 PATCH TD SCH (21:33)
[2024-12-19 05:55] LABS: Hematocrit (blood only) 26.3 % (42.0-52.0); Hemoglobin 8.1 g/dl (14.0-18.0)
[2024-12-19 06:12] LABS: Anion Gap 6.0 (3-11); Blood Urea Nitrogen 13.0 mg/dl (6-23); Calcium 8.2 mg/dl (8.6-10.3); Carbon Dioxide 28.0 mmol/L (21-32); Chloride 108.0 mmol/L (98-107); Creatinine Clr Calc Pharmacy 207.5 ml/min; Glucose 106.0 mg/dl (70-99(Fasting)); Magnesium 1.5 mg/dl (1.7-2.4); Potassium 3.5 mmol/L (3.5-5.1); Sodium 142.0 mmol/L (136-145)
[2024-12-19] MEDS: REMOVE LIDODERM PATCH SCH (09:04)
[2024-12-19] MEDS: MAGNESIUM SULFATE / D5W 1 GM/100 ML BAG IV SCH (09:09)
--- NOTE | 2024-12-19 09:31 | Hospitalist Progress Note ---
Date of Service December 19, 2024 Assessment & Plan (1) Upper GI bleeding: (2) Duodenal ulcer hemorrhage: (3) Acute blood loss anemia: (4) Hypotension: (5) Cellulitis of right leg: (6) Sepsis: (7) ATN (acute tubular necrosis): (8) ARACELI (acute kidney injury): (9) Diabetes mellitus type 2, uncontrolled: (10) Essential hypertension: (11) Obesity, Class III, BMI 40-49.9 (morbid obesity): (12) Acute deep vein thrombosis of right lower extremity: (13) Folate deficiency: Plan 64yo male with history of T2DM, hyperlipidemia, HTN, and morbid obesity presents with several weeks of his "right leg leaking" as well as worsening edema. #Upper GI bleeding with resulting acute blood loss anemia 2nd to duodenal ulcers Avoid anticoagulation Completed IV Protonix drip Required 3 units of PRBCs on 12/05 and additional unit on 12/07 EGD 12/05: multiple bleeding duodenal ulcers; one w/ visible ulcer w/ active bleeding. s/p injected/clipped, bleeding subsided. Signs of Anand's --> path negative for H. pylori Repeat EGD 12/07 secondary to hgb drop: no signs of bleeding. GI consulted: will require follow up EGD in 2-3 months following discharge Hgb low, but stable; Hgb trend: 7.8 -> 8.6 -> 8.4 -> 8.1 May require additional unit of blood prior to discharge, as patient is at high risk of rebleeding / does not have much buffer room in the event of a re-bleed Continue Carafate & Protonix 40mg BID #Right shoulder pain Lidocaine patch HS #Iron deficiency anemia In the setting of acute GI bleed as above. Iron panel: Fe < 10, TIBC 216, Transferrin 154, Transferrin % TNP Start daily iron supplementation --> can darken stools s/p Venofer 200 mg IV x 3 #DVT of RLE DVT of gastrocnemius vein -- repeat Doppler US 12/06 revealed stable gastrocnemius vein Reviewed GI notes; per review of EGD performed on 12/07 it was recommended to avoid anticoagulation with Eliquis or heparin type medications for the next 14 days Touched base with vascular surgery on 12/14 to discuss a potential IVC filter given patient's high risk of rebleed --> reviewed imaging, and given the clot in his gastrocnemius vein appears stable, they do not feel like he will need anticoagulation or an IVC filter Avoid Eliquis, heparin, and aspirin moving forward Consider serial Doppler imaging of the right lower extremity to assess for stability #Diabetes mellitus - controlled A1c elevated at 7.2% on 12/13/24 assistant health educator consult appreciated Patient's glucose has been stable in the hospital (80 - 124 over the past 48 hours) Will loosen patient's SSI on 12/15 BSG ACHS; Cont NovoLog prior to meals PRN Adjust regimen as needed #HTN Lisinopril reduced to 10mg daily, BP's remain normotensive Continue Metoprolol succinate #RLE cellulitis | severe sepsis - present on admission (resolved) Sepsis source: RLE cellulitis. CT right leg: no acute osseous abnormality; nonspecific subQ edema w/ dermal thickening. no fluid collection. with resulting sepsis 2nd to pseudomonas & strep --> wound cultures w/ FQ resistance. BC negative. s/p IV Cefepime Wound nurse consulted: Aquacel ag to open areas. change daily to every other day depending on drainage. DVT ppx: hold in setting of GI bleed with high risk of rebleeding Discharge history: Insurance denied P2P for SNF rehab on 12/10 despite ongoing medical concerns. Sebastien remains at increased risk if discharged home due to impaired ambulation, high fall risk, and lack of adequate support for safe mobility. Additionally, he does not have reliable living conditions, further compromising safety. In addition to mobility concerns, Sebastien remains at high risk of re-bleeding from his GI tract. Close monitoring of hemoglobin is required given recent decline and ongoing risk, which cannot be reliably managed in his current home setting. Discharge home at that time posed a significant safety concern, and hospitalization was prolonged to ensure safe transition of care. 12/13: PT reeval; not safe to return home; weakness, balance deficits, and decrease in functional mobility 12/13: Niece (Clare) submitted a SNF appeal; no updates on SNF appeal to date 12/17: [facility] can accept patient 12/18: Niece optimizing patient's house for d/c on ; obtained lift chair, building ramp Disposition: Medically stable for discharge at this time; anticipated d/c on Thursday 12/21 to home with Admission and Anticipated Discharge Date Admission Date: December 01, 2024 Supervising Physician Co-Signing Physician Notes Attending Attestation - Chart reviewed, care plan d/w COLTEN Garcia. I agree w/ the knott components of his documentation. Hemoglobin noted - 8.1 this am. This is despite recent venofer x 3 doses as well as folate supplementation. Will recheck Fe studies am and give additional venofer, if Fe studies call for such. Recheck mag and cbc am. Aiden Curry MD Subjective Mr. Randall is happy to report that the lidocaine patch helped his right shoulder pain while sleeping last night. He reports it "works perfectly". He slept well, and is currently eating lunch. No recurrence of abdominal pain, nausea, or vomiting when eating. He had a bowel movement this morning which was "normal", and denies any recurrence of melena. ROS: Patient denies lightheadedness with walking, left shoulder pain at this time, abdominal pain with eating, right lower extremity pain, melena, blood in stool/urine, or diarrhea. Review of Systems Review of Systems: See HPI above Physical Exam Physical Exam: General: no acute distress; pleasant affect; sitting upright in his chair eating lunch and watching TV; non-toxic appearing; cooperative; SpO2 93% on RA HEENT: normocephalic, atraumatic; PERRLA; vision and hearing intact Neck: supple; trachea midline Skin: warm, dry without signs of tenting; no cyanosis; no rashes, bruising, lesions, or erythema noted CV: chest wall NTP; RRR; S1/S2 normal; no murmurs/rubs/gallops; pulses intact and symmetric at radial, DP, and PT Lungs: no acute respiratory distress; symmetrical chest wall expansion; clear breath sounds across all lung sarah w/o adventitious sounds; no wheezing ABD: Soft, NTP; BS present; no rebound/guarding; no distention MSK: no tics or fasciculations RLE: Right lower extremity is erythematous below the knee; mildly warm to touch (but improvement from prior) NTP; circumferential erythema with moderate scaling; currently dressed; 2+ pitting edema extending from the dorsal aspect of the feet bilaterally up to the knees; patient demonstrates ability wiggle toes and report sensation is intact and symmetric in the lower extremities bilaterally assessed via light touch at the toes Neuro: A&Ox3; normal mood and affect; fluent speech; patient reports sensation is intact and symmetric in all EXTR bilaterally assessed via light touch Results & Data Results & Data Vital Signs (Past 12 Hours) Vital Signs Temp Pulse Resp BP Pulse Ox O2 Del Method 12/19/24 07:36 37.0 C 72 18 134/71 93 Room Air 12/18/24 23:43 36.8 C 74 18 120/75 97 Room Air PG Care Time/CCT Total # of Minutes Spent Total Time Spent with Patient: Total time spent is greater than 50% in coordination of care (as documented) at patient's floor/unit and/or counseling patient: Coding [place] [address] SUB INP/OBS CARE 2/35MIN Patient Type Established Medical Decision Making Low Complexity Diagnoses Upper GI bleeding K92.2 Duodenal ulcer hemorrhage K26.4 Acute blood loss anemia D62 Hypotension I95.9 Cellulitis of right leg L03.115 Sepsis A41.9 ATN (acute tubular necrosis) N17.0 ARACELI (acute kidney injury) N17.9 Diabetes mellitus type 2, uncontrolled Essential hypertension I10 Obesity, Class III, BMI 40-49.9 (morbid obesity) E66.01 Acute deep vein thrombosis of right lower extremity I82.401 Folate deficiency E53.8
[2024-12-20 07:43] LABS: Hematocrit (blood only) 26.5 % (42.0-52.0); Hemoglobin 8.3 g/dl (14.0-18.0); Mean Corpuscular Hemoglobin 28.3 pg (25.0-34.0); Mean Corpuscular Volume 90.4 fL (80.0-100.0); Platelet Count 291 K/uL (130-400); RDW Standard Deviation 53.9 fL (36.4-46.3); Red Blood Count 2.93 M/uL (4.70-6.10); White Blood Count 5.77 K/ul (4.8-10.8)
[2024-12-20 08:01] LABS: Iron 23.0 mcg/dl (35-175); Magnesium 1.6 mg/dl (1.7-2.4); Total Iron Binding Cap Calc 232.0 mcg/dl (250-450); Transferrin 166.0 mg/dl (200-360); Transferrin (FE) Percent Satur 10.0 % (20-50)
[2024-12-20 08:21] LABS: Ferritin 505.5 ng/ml (8-388)
--- NOTE | 2024-12-20 09:03 | Hospitalist Progress Note ---
Date of Service December 20, 2024 Assessment & Plan (1) Upper GI bleeding: (2) Duodenal ulcer hemorrhage: (3) Acute blood loss anemia: (4) Hypotension: (5) Cellulitis of right leg: (6) Sepsis: (7) ATN (acute tubular necrosis): (8) ARACELI (acute kidney injury): (9) Diabetes mellitus type 2, uncontrolled: (10) Essential hypertension: (11) Obesity, Class III, BMI 40-49.9 (morbid obesity): (12) Acute deep vein thrombosis of right lower extremity: (13) Folate deficiency: Plan 64yo male with history of T2DM, hyperlipidemia, HTN, and morbid obesity presents with several weeks of his "right leg leaking" as well as worsening edema. #Upper GI bleeding with resulting acute blood loss anemia 2nd to duodenal ulcers Avoid anticoagulation Completed IV Protonix drip Required 3 units of PRBCs on 12/05 and additional unit on 12/07 EGD 12/05: multiple bleeding duodenal ulcers; one w/ visible ulcer w/ active bleeding. s/p injected/clipped, bleeding subsided. Signs of Anand's --> path negative for H. pylori Repeat EGD 12/07 secondary to hgb drop: no signs of bleeding. GI consulted: will require follow up EGD in 2-3 months following discharge Hgb low, but stable; 8.3 Continue Carafate & Protonix 40mg BID #Hypomagnesemia Low at 1.6 Start on PO supplementation: 400mg Mag Oxide BID #Right shoulder pain -Lidocaine patch HS #Iron deficiency anemia In the setting of acute GI bleed as above. Iron panel: Fe 23, TIBC 232, Transferrin 166, Transferrin % 10 Continue daily iron supplementation --> can darken stools s/p Venofer 200 mg IV x 3 #DVT of RLE DVT of gastrocnemius vein -- repeat Doppler US 12/06 revealed stable gastrocnemius vein Reviewed GI notes; per review of EGD performed on 12/07 it was recommended to avoid anticoagulation with Eliquis or heparin type medications for the next 14 days Touched base with vascular surgery on 12/14 to discuss a potential IVC filter given patient's high risk of rebleed --> reviewed imaging, and given the clot in his gastrocnemius vein appears stable, they do not feel like he will need anticoagulation or an IVC filter Avoid Eliquis, heparin, and aspirin moving forward Consider serial Doppler imaging of the right lower extremity prior to dc to assess for stability #Diabetes mellitus - controlled A1c elevated at 7.2% on 12/13/24 senior health educator consult appreciated Loosen patient's SSI on 12/15 BSG ACHS; Cont NovoLog prior to meals PRN Adjust regimen as needed #HTN Lisinopril reduced to 10mg daily, BP's remain normotensive Continue Metoprolol succinate #RLE cellulitis | severe sepsis - present on admission (resolved) Sepsis source: RLE cellulitis. CT right leg: no acute osseous abnormality; nonspecific subQ edema w/ dermal thickening. no fluid collection. with resulting sepsis 2nd to pseudomonas & strep --> wound cultures w/ FQ resistance. BC negative. s/p IV Cefepime Wound nurse consulted: Aquacel ag to open areas. change daily to every other day depending on drainage. DVT ppx: hold in setting of GI bleed with high risk of rebleeding Discharge history: Insurance denied P2P for SNF rehab on 12/10 despite ongoing medical concerns. Sebastien remains at increased risk if discharged home due to impaired ambulation, high fall risk, and lack of adequate support for safe mobility. Additionally, he does not have reliable living conditions, further compromising safety. In addition to mobility concerns, Sebastien remains at high risk of re-bleeding from his GI tract. Close monitoring of hemoglobin is required given recent decline and ongoing risk, which cannot be reliably managed in his current home setting. Discharge home at that time posed a significant safety concern, and hospitalization was prolonged to ensure safe transition of care. 12/13: PT reeval; not safe to return home; weakness, balance deficits, and decrease in functional mobility 12/13: Betina (Clare) submitted a SNF appeal; no updates on SNF appeal to date 12/17: [facility] can accept patient 12/18: Niece optimizing patient's house for d/c on HH; obtained lift chair, building ramp 12/20: Nirenetta reports house is still not optimized. Cleaning crew is coming on 12/21. House tentatively ready for discharge on 12/22. Disposition: Medically stable for discharge at this time; awaiting safe discharge plan. Admission and Anticipated Discharge Date Admission Date: December 01, 2024 Subjective Sebastien was seen & examined this morning. He reports he is feeling great today. Denies any complaints. Physical Exam Physical Exam: General: NAD, VS as above Resp: normal respiratory effort Extremities: no edema Neuro: A&O x3 Skin: intact, no lesions noted Results & Data Results & Data Vital Signs (Past 12 Hours) Vital Signs Temp Pulse Resp BP Pulse Ox O2 Del Method 12/20/24 08:08 36.8 C 75 20 170/74 H 97 Room Air 12/19/24 22:19 36.9 C 72 14 147/88 H 95 Room Air 12/19/24 21:36 Room Air PG Care Time/CCT Total # of Minutes Spent Total Time Spent with Patient: Total time spent is greater than 50% in coordination of care (as documented) at patient's floor/unit and/or counseling patient: Coding Level of Care Code 44060 SUB INP/OBS CARE 04/03MIN Diagnoses Upper GI bleeding K92.2 Duodenal ulcer hemorrhage K26.4 Acute blood loss anemia D62 Hypotension I95.9 Cellulitis of right leg L03.115 Sepsis A41.9 ATN (acute tubular necrosis) N17.0 ARACELI (acute kidney injury) N17.9 Diabetes mellitus type 2, uncontrolled Essential hypertension I10 Obesity, Class III, BMI 40-49.9 (morbid obesity) E66.01 Acute deep vein thrombosis of right lower extremity I82.401 Folate deficiency E53.8
[2024-12-20] MEDS: MAGNESIUM OXIDE 400 MG TAB PO SCH (09:47)
--- NOTE | 2024-12-21 11:50 | Hospitalist Progress Note ---
Date of Service December 21, 2024 Assessment & Plan (1) Upper GI bleeding: (2) Duodenal ulcer hemorrhage: (3) Acute blood loss anemia: (4) Hypotension: (5) Cellulitis of right leg: (6) Sepsis: (7) ATN (acute tubular necrosis): (8) ARACELI (acute kidney injury): (9) Diabetes mellitus type 2, uncontrolled: (10) Essential hypertension: (11) Obesity, Class III, BMI 40-49.9 (morbid obesity): (12) Acute deep vein thrombosis of right lower extremity: (13) Folate deficiency: Plan 64yo male with history of T2DM, hyperlipidemia, HTN, and morbid obesity presents with several weeks of his "right leg leaking" as well as worsening edema. #Upper GI bleeding with resulting acute blood loss anemia 2nd to duodenal ulcers Avoid anticoagulation Completed IV Protonix drip Required 3 units of PRBCs on 12/05 and additional unit on 12/07 EGD 12/05: multiple bleeding duodenal ulcers; one w/ visible ulcer w/ active bleeding. s/p injected/clipped, bleeding subsided. Signs of Anand's --> path negative for H. pylori Repeat EGD 12/07 secondary to hgb drop: no signs of bleeding. GI consulted: will require follow up EGD in 2-3 months following discharge Hgb low, but stable; 8.3 Continue Carafate & Protonix 40mg BID #Hypomagnesemia Low at 1.6 Start on PO supplementation: 400mg Mag Oxide BID Recheck in AM #Right shoulder pain -Lidocaine patch HS #Iron deficiency anemia In the setting of acute GI bleed as above. Iron panel: Fe 23, TIBC 232, Transferrin 166, Transferrin % 10 Continue daily iron supplementation --> can darken stools s/p Venofer 200 mg IV x 3 #DVT of RLE DVT of gastrocnemius vein -- repeat Doppler US 12/06 revealed stable gastrocnemius vein Reviewed GI notes; per review of EGD performed on 12/07 it was recommended to avoid anticoagulation with Eliquis or heparin type medications for the next 14 days Touched base with vascular surgery on 12/14 to discuss a potential IVC filter given patient's high risk of rebleed --> reviewed imaging, and given the clot in his gastrocnemius vein appears stable, they do not feel like he will need anticoagulation or an IVC filter Avoid Eliquis, heparin, and aspirin moving forward Consider serial Doppler imaging of the right lower extremity prior to dc to assess for stability #Diabetes mellitus - controlled A1c elevated at 7.2% on 12/13/24 life skills educator consult appreciated Loosen patient's SSI on 12/15 BSG ACHS; Cont NovoLog prior to meals PRN Adjust regimen as needed #HTN Lisinopril reduced to 10mg daily, BP's remain normotensive Continue Metoprolol succinate #RLE cellulitis | severe sepsis - present on admission (resolved) Sepsis source: RLE cellulitis. CT right leg: no acute osseous abnormality; nonspecific subQ edema w/ dermal thickening. no fluid collection. with resulting sepsis 2nd to pseudomonas & strep --> wound cultures w/ FQ resistance. BC negative. s/p IV Cefepime Wound nurse consulted: Aquacel ag to open areas. change daily to every other day depending on drainage. DVT ppx: hold in setting of GI bleed with high risk of rebleeding Discharge history: Insurance denied P2P for SNF rehab on 12/10 despite ongoing medical concerns. Sebastien remains at increased risk if discharged home due to impaired ambulation, high fall risk, and lack of adequate support for safe mobility. Additionally, he does not have reliable living conditions, further compromising safety. In addition to mobility concerns, Sebastien remains at high risk of re-bleeding from his GI tract. Close monitoring of hemoglobin is required given recent decline and ongoing risk, which cannot be reliably managed in his current home setting. Discharge home at that time posed a significant safety concern, and hospitalization has been prolonged to ensure safe transition of care. 12/13: PT reeval; not safe to return home; weakness, balance deficits, and dec rease in functional mobility 12/13: [facility] ([facility]) submitted a SNF appeal; no updates on SNF appeal to date 12/17: [facility] can accept patient 12/18: [facility] optimizing patient's house for d/c on HH; obtained lift chair, building ramp 12/20: [facility] reports house is still not optimized. Cleaning crew is coming on 12/21. House tentatively ready for discharge on 12/22; PT still recommending rehab on dc. Disposition: Medically stable for discharge at this time; awaiting safe discharge plan. Admission and Anticipated Discharge Date Admission Date: December 01, 2024 Supervising Physician Co-Signing Physician Notes The patient was not seen by me. The chart was reviewed. Case discussed with COLTEN Gilbert. Agree with assessment and plan Subjective Sebastien was seen & examined this morning. He reports to be feeling well today & denies any complaints. Physical Exam Physical Exam: General: NAD, VS: BP 121/74; P73; R18; T36.4C Resp: normal respiratory effort Extremities: no edema Neuro: A&O x3 Skin: intact, no lesions noted Results & Data Results & Data Vital Signs (Past 12 Hours) Vital Signs Temp Pulse Resp BP Pulse Ox O2 Del Method 12/21/24 11:02 36.4 C L 73 18 121/74 95 Room Air 12/21/24 08:02 Room Air 12/21/24 07:31 36.8 C 76 18 133/71 95 Room Air PG Care Time/CCT Total # of Minutes Spent Total Time Spent with Patient: Total time spent is greater than 50% in coordination of care (as documented) at patient's floor/unit and/or counseling patient: Coding Level of Care Code 40753 SUB INP/OBS CARE 04/03MIN Diagnoses Upper GI bleeding K92.2 Duodenal ulcer hemorrhage K26.4 Acute blood loss anemia D62 Hypotension I95.9 Cellulitis of right leg L03.115 Sepsis A41.9 ATN (acute tubular necrosis) N17.0 ARACELI (acute kidney injury) N17.9 Diabetes mellitus type 2, uncontrolled Essential hypertension I10 Obesity, Class III, BMI 40-49.9 (morbid obesity) E66.01 Acute deep vein thrombosis of right lower extremity I82.401 Folate deficiency E53.8
[2024-12-22 10:22] LABS: Hematocrit (blood only) 28.9 % (42.0-52.0); Hemoglobin 8.9 g/dl (14.0-18.0); Mean Corpuscular Hemoglobin 27.7 pg (25.0-34.0); Mean Corpuscular Volume 90.0 fL (80.0-100.0); Platelet Count 328 K/uL (130-400); RDW Standard Deviation 53.6 fL (36.4-46.3); Red Blood Count 3.21 M/uL (4.70-6.10); White Blood Count 6.09 K/ul (4.8-10.8)
[2024-12-22 10:37] LABS: Anion Gap 6.0 (3-11); Blood Urea Nitrogen 12.0 mg/dl (6-23); Calcium 8.6 mg/dl (8.6-10.3); Carbon Dioxide 28.0 mmol/L (21-32); Chloride 107.0 mmol/L (98-107); Creatinine Clr Calc Pharmacy 215.7 ml/min; Glucose 145.0 mg/dl (70-99(Fasting)); Magnesium 1.7 mg/dl (1.7-2.4); Potassium 3.7 mmol/L (3.5-5.1); Sodium 141.0 mmol/L (136-145)
--- NOTE | 2024-12-22 10:57 | Hospitalist Progress Note ---
Date of Service December 22, 2024 Assessment & Plan (1) Upper GI bleeding: (2) Duodenal ulcer hemorrhage: (3) Acute blood loss anemia: (4) Hypotension: (5) Cellulitis of right leg: (6) Sepsis: (7) ATN (acute tubular necrosis): (8) ARACELI (acute kidney injury): (9) Diabetes mellitus type 2, uncontrolled: (10) Essential hypertension: (11) Obesity, Class III, BMI 40-49.9 (morbid obesity): (12) Acute deep vein thrombosis of right lower extremity: (13) Folate deficiency: Plan 64yo male with history of T2DM, hyperlipidemia, HTN, and morbid obesity presents with several weeks of his "right leg leaking" as well as worsening edema. #Upper GI bleeding with resulting acute blood loss anemia 2nd to duodenal ulcers Avoid anticoagulation Completed IV Protonix drip Required 3 units of PRBCs on 12/05 and additional unit on 12/07 EGD 12/05: multiple bleeding duodenal ulcers; one w/ visible ulcer w/ active bleeding. s/p injected/clipped, bleeding subsided. Signs of Anand's --> path negative for H. pylori Repeat EGD 12/07 secondary to hgb drop: no signs of bleeding. GI consulted: will require follow up EGD in 2-3 months following discharge Hgb stable; 8.9 Continue Carafate & Protonix 40mg BID #Hypomagnesemia Stable at 1.7 Start on PO supplementation: 400mg Mag Oxide BID - can continue on discharge. #Right shoulder pain -Lidocaine patch HS #Iron deficiency anemia In the setting of acute GI bleed as above. Iron panel: Fe 23, TIBC 232, Transferrin 166, Transferrin % 10 Continue daily iron supplementation --> can darken stools s/p Venofer 200 mg IV x 3 #DVT of RLE DVT of gastrocnemius vein -- repeat Doppler US 12/06 revealed stable gastrocnemius vein Reviewed GI notes; per review of EGD performed on 12/07 it was recommended to avoid anticoagulation with Eliquis or heparin type medications for the next 14 days Touched base with vascular surgery on 12/14 to discuss a potential IVC filter given patient's high risk of rebleed --> reviewed imaging, and given the clot in his gastrocnemius vein appears stable, they do not feel like he will need anticoagulation or an IVC filter Avoid Eliquis, heparin, and aspirin moving forward serial Doppler imaging of the right lower extremity ordered 12/22 to assess for stability prior to dc. #Diabetes mellitus - controlled A1c elevated at 7.2% on 12/13/24 parent educator consult appreciated Loosen patient's SSI on 12/15 BSG ACHS; Cont NovoLog prior to meals PRN Adjust regimen as needed #HTN Lisinopril reduced to 10mg daily, BP's remain normotensive Continue Metoprolol succinate #RLE cellulitis | severe sepsis - present on admission (resolved) Sepsis source: RLE cellulitis. CT right leg: no acute osseous abnormality; nonspecific subQ edema w/ dermal thickening. no fluid collection. with resulting sepsis 2nd to pseudomonas & strep --> wound cultures w/ FQ resistance. BC negative. s/p IV Cefepime Wound nurse consulted: Aquacel ag to open areas. change daily to every other day depending on drainage. DVT ppx: hold in setting of GI bleed with high risk of rebleeding Discharge history: Insurance denied P2P for SNF rehab on 12/10 despite ongoing medical concerns. Sebastien remains at increased risk if discharged home due to impaired ambulation, high fall risk, and lack of adequate support for safe mobility. Additionally, he does not have reliable living conditions, further compromising safety. In addition to mobility concerns, Seabstien remains at high risk of re-bleeding from his GI tract. Close monitoring of hemoglobin is required given recent decline and ongoing risk, which cannot be reliably managed in his current home setting. Discharge home at that time posed a significant safety concern, and hospitalization has been prolonged to ensure safe transition of care. 12/13: PT reeval; not safe to return home; weakness, balance deficits, and decrease in functional mobility 12/13: [facility] ([facility]) submitted a SNF appeal; no updates on SNF appeal to date 12/17: [facility] can accept patient 12/18: [facility] optimizing patient's house for d/c on HH; obtained lift chair, building ramp 12/20: [facility] reports house is still not optimized. Cleaning crew is coming on 12/21. House tentatively ready for discharge on 12/22; PT still recommending rehab on dc. Disposition: Medically stable for discharge at this time; awaiting safe discharge plan. Admission and Anticipated Discharge Date Admission Date: December 01, 2024 Supervising Physician Co-Signing Physician Notes The patient was not seen by me. The chart was reviewed. Case discussed with COLTEN Gilbert. Agree with assessment and plan Subjective Sebastien was seen & examined this morning. He reports to be feeling well today. Denies any acute complaints. He is hopeful to return home tomorrow. Physical Exam Physical Exam: General: NAD, VS: BP 135/82; P75; R18; T36.8C Resp: normal respiratory effort Cardio: well perfused Neuro: A&O x3 Skin: intact, no lesions noted Results & Data Results & Data Vital Signs (Past 12 Hours) Vital Signs Temp Pulse Resp BP Pulse Ox O2 Del Method 12/22/24 08:41 36.8 C 75 18 135/82 93 Room Air 12/22/24 07:25 Room Air 12/21/24 23:31 37.0 C 76 18 118/63 98 Room Air PG Care Time/CCT Total # of Minutes Spent Total Time Spent with Patient: Total time spent is greater than 50% in coordination of care (as documented) at patient's floor/unit and/or counseling patient: Coding Level of Care Code 70005 SUB INP/OBS CARE 2/35MIN Diagnoses Upper GI bleeding K92.2 Duodenal ulcer hemorrhage K26.4 Acute blood loss anemia D62 Hypotension I95.9 Cellulitis of right leg L03.115 Sepsis A41.9 ATN (acute tubular necrosis) N17.0 ARACELI (acute kidney injury) N17.9 Diabetes mellitus type 2, uncontrolled Essential hypertension I10 Obesity, Class III, BMI 40-49.9 (morbid obesity) E66.01 Acute deep vein thrombosis of right lower extremity I82.401 Folate deficiency E53.8
--- NOTE | 2024-12-22 17:12 | Ultrasound Report ---
Clinical History: Follow-up DVT Technique: Venous ultrasound evaluation was performed utilizing grayscale, color Doppler and wave form evaluation. Images were also obtained with and without compression Comparison is made to the prior ultrasound dated 12/06/2034 Findings: Nonocclusive superficial venous thrombosis is seen in the lesser saphenous vein, extending approximately 2.8 cm in length, and within the greater saphenous vein, extending approximately 4 cm in length. The common femoral, superficial femoral, popliteal, and visualized calf veins demonstrate normal anechoic lumens with full compressibility. Normal flow is seen on color Doppler images. Expected waveforms were produced with augmentation maneuvers Impression: 1. No evidence of deep venous thrombosis 2. Persistent superficial venous thrombosis in the right leg Electronically signed by Dario Martin 12-22-2024 5:10 PM
[2024-12-23 07:50] VITALS: BP 133/78; PULSE 77; RESP 20; TEMP 98.2; O2SAT 94
--- NOTE | 2024-12-23 10:04 | Discharge Summary ---
Discharge Summary Date of Service December 23, 2024 Principal Dx & Hospital Course #1 = Principal Diagnosis (1) Upper GI bleeding: (2) Duodenal ulcer hemorrhage: (3) Acute blood loss anemia: (4) Hypotension: (5) Cellulitis of right leg: (6) Sepsis: (7) ATN (acute tubular necrosis): (8) ARACELI (acute kidney injury): (9) Diabetes mellitus type 2, uncontrolled: (10) Essential hypertension: (11) Obesity, Class III, BMI 40-49.9 (morbid obesity): (12) Acute deep vein thrombosis of right lower extremity: (13) Folate deficiency: Plan 64yo male with history of T2DM, hyperlipidemia, HTN, and morbid obesity presents with several weeks of his "right leg leaking" as well as worsening edema. #Upper GI bleeding with resulting acute blood loss anemia 2nd to duodenal ulcers Completed IV Protonix drip Required 3 units of PRBCs on 12/05 and additional unit on 12/07 EGD 12/05: multiple bleeding duodenal ulcers; one w/ visible ulcer w/ active bleeding. s/p injected/clipped, bleeding subsided. Signs of Anand's --> path negative for H. pylori Repeat EGD 12/07 secondary to hgb drop: no signs of bleeding. GI consulted: will require follow up EGD in 2-3 months following discharge Hgb stable; 8.9--> recommend repeat in 1 week, discuss w/ PCP @ follow up visit. Continue Carafate & Protonix 40mg BID #Hypomagnesemia Stable at 1.7 Start on PO supplementation: 400mg Mag Oxide BID - can continue on discharge. #Right shoulder pain -Lidocaine patch HS - rec 12 hours on, 12 hours off @ home. #Iron deficiency anemia In the setting of acute GI bleed as above. Iron panel: Fe 23, TIBC 232, Transferrin 166, Transferrin % 10 Continue daily iron supplementation --> can darken stools s/p Venofer 200 mg IV x 3 #DVT of RLE DVT of gastrocnemius vein -- repeat Doppler US 12/06 revealed stable gastrocnemius vein Reviewed GI notes; per review of EGD performed on 12/07 it was recommended to avoid anticoagulation with Eliquis or heparin type medications for the next 14 days Touched base with vascular surgery on 12/14 to discuss a potential IVC filter given patient's high risk of rebleed --> reviewed imaging, and given the clot in his gastrocnemius vein appears stable, they do not feel like he will need anticoagulation or an IVC filter Avoid Eliquis, heparin, and aspirin moving forward serial Doppler imaging of the right lower extremity ordered 12/22--> no evidence of DVT, persistent superficial venous thrombosis in right leg. #Diabetes mellitus - controlled A1c elevated at 7.2% on 12/13/24 Resume metformin on discharge. #HTN Continue Metoprolol succinate Lisinopril & triamterene HCTZ discontinued. #RLE cellulitis | severe sepsis - present on admission (resolved) Sepsis source: RLE cellulitis. CT right leg: no acute osseous abnormality; nonspecific subQ edema w/ dermal thickening. no fluid collection. with resulting sepsis 2nd to pseudomonas & strep --> wound cultures w/ FQ resistance. BC negative. s/p IV Cefepime Wound nurse consulted: Aquacel ag to open areas. change daily to every other day depending on drainage. Discharge history: Insurance denied P2P for SNF rehab on 12/10 despite ongoing medical concerns. Sebastien remains at increased risk if discharged home due to impaired ambulation, high fall risk, and lack of adequate support for safe mobility. Additionally, he does not have reliable living conditions, further compromising safety. In addition to mobility concerns, Sebastien remains at high risk of re-bleeding from his GI tract. Close monitoring of hemoglobin is required given recent decline and ongoing risk, which cannot be reliably managed in his current home setting. Discharge home at that time posed a significant safety concern, and hospitalization has been prolonged to ensure safe transition of care. 12/13: PT reeval; not safe to return home; weakness, balance deficits, and decrease in functional mobility 12/13: [facility] ([facility]) submitted a SNF appeal; no updates on SNF appeal to date 12/17: [facility] can accept patient 12/18: Niece optimizing patient's house for d/c on ; obtained lift chair, building ramp 12/20: [facility] reports house is still not optimized. Cleaning crew is coming on 12/21. House tentatively ready for discharge on 12/22; PT still recommending rehab on nm. 12/23: patient discharged home w/ home health Admission HPI Per Admitting Provider 64yo male with history of T2DM, hyperlipidemia, HTN, and morbid obesity presents with several weeks of his "right leg leaking" as well as worsening edema. Then, about 2-3 days ago, he began to feel poorly with decreased appetite and weakness. The right leg began to turn red during the last few days and the leg was tender with walking. The redness starts just below the right knee and extends down to the right foot. The leaking of fluid has continued as well. Denies any fevers but has had rigors today. Upon ER presentation today his systolic BP was low in the 80s. Discharge Exam General: NAD, VS: BP 133/78; P77; T36.8C Resp: normal respiratory effort Extremities: Moves all extremities, no edema Neuro: A&O x3 Skin: intact, no lesions noted Discharge Plan Discharge Items Patient Disposition: Home - Home Health Services Reason For Visit: SEPSIS, RLE CELLULITIS Discharge Diagnosis: right lower extremity cellulitis, duodenal ulcer bleed Condition on Discharge: Good Activity: Resume your previous activity Non-emergency contact: Primary Care Provider and Wood Carving Machine Operator Call non-emergency contact if: you have any medication questions, your symptoms worsen and you have a fever Follow-up/Referrals: Ross Smith DO [Primary Care Provider] - 12/31/24 10:30 am Gavin Ramirez MD [Physician] - 12/30/24 11:30 am Diet: Carb Consistent or DM2 Addtl Attending Provider Instructions: Mr. Randall, You were recently hospitalized secondary to an infection of your right lower leg which has been resolved with IV antibiotics. While you were here you also had an acute GI bleed from an ulcer in your duodenum. This was managed by an endoscopy performed by the domestic helper. Your blood counts have remained stable and it is safe for you to return home now. Medications: Your medication list has been reviewed and reconciled upon discharge to ensure accuracy and continuity of care. An updated list of all your medications is included with your hospital discharge paperwork. Please review this list closely, and make note of any changes. Medications that have been sent in to your pharmacy: Ferrous sulfate: Please take one 325 mg tablet once daily starting tomorrow. Folic acid: Please take one 1mg tablet once daily starting tomorrow. Magnesium oxide: Please take one 400mg tablet twice daily starting this evening. Carafate: Please take 10mL 4 times daily starting this evening. - This can be dose prior to meals and prior to bed time. Pantoprazole: Please take one 40mg tablet twice daily starting this evening. Miconazole Nitrate: Please apply this powder three times daily to your abdominal skin folds. Lidoderm patch: Please apply a patch a patch this evening and remove 12 hours after placing. Each patch should be placed in the evening and removed the following morning. Medications that have been discontinued: Aspirin Lisinopril Triamterene-hydrochlorothiazide Take your medications as instructed; do not skip a dose of your medicines. Make sure all of your doctors know every medicine you are taking (including aijt-sfz-fmzfyks medicines, vitamins, and supplements). Call your primary care provider before taking any new medicines (including over- the-counter medicines, vitamins, and supplements), because some of these may interact with your current medications, or may make your symptoms worse. Tell your primary care provider if you cannot afford your medications. Activity: You can do normal everyday activities as your body allows. Take rest breaks if you feel tired. Do not overexert. Stop activity if you have pain, shortness of breath or feel dizzy. Home health is being arranged for you on discharge for physical and occupational therapy at home to help you get stronger. Follow-up appointments: Make an appointment with your primary care physician within one week of discharge. A copy of this summary will be sent to them. Every time you see your primary care physician, or any other doctor, bring your medication list, and a list of questions. At this appointment, you should have orders for your blood counts to be rechecked along with your vitamin levels. Please follow up with gastroenterology on discharge. Their phone number is above if you should have questions or concerns. CONTACT YOUR PRIMARY CARE PROVIDER if you experience any of the following: Shortness of breath or difficulty breathing Fevers or chills Feeling tired with normal activity or experiencing dizziness or fainting Difficulty following your treatment plan, or difficulty taking medications CALL 911 OR GO TO THE EMERGENCY DEPARTMENT if you experience any of the following: Severe abdominal pain or nausea/vomiting Severe chest pain, or chest pain that radiates (moves) to your jaw or arm Sudden, severe shortness of breath or difficulty breathing Thank you for allowing us to participate in your care. Pending Studies at Discharge: No Stand-Alone Forms: My hoccer, Smoking Cessation Medications and DC Order Prescriptions: New ferrous sulfate 325 mg (65 mg iron) Tablet,Delayed Release (Dr/Ec) 325 mg PO QAM Qty: 30 0RF magnesium oxide 400 mg (241.3 mg magnesium) Tablet 400 mg PO BID Qty: 60 0RF sucralfate 100 mg/mL Suspension 1 g PO QID Qty: 1000 0RF miconazole nitrate [Desenex] 2 % Powder 1 applic EXT TID Qty: 85 0RF pantoprazole 40 mg Tablet,Delayed Release (Dr/Ec) 40 mg PO BID Qty: 60 0RF lidocaine 5 % Adhesive Patch,Medicated 1 patch transdermal QPM Qty: 30 0RF folic acid 1 mg Tablet 1 mg PO DAILY Qty: 30 0RF Continued coenzyme Q10 [Co Q-10] 400 mg capsule 400 mg PO DAILY Qty: 90 3RF metformin 500 mg tablet extended release 24 hr 500 mg PO DAILY 90 Days Qty: 90 3RF atorvastatin 40 mg tablet 40 mg PO DAILY Qty: 90 3RF metoprolol succinate 100 mg tablet extended release 24 hr 100 mg PO DAILY Qty: 90 3RF cholecalciferol (vitamin D3) 125 mcg (5,000 unit) capsule 125 mcg PO DAILY Discontinued lisinopril 20 mg tablet 20 mg PO DAILY Qty: 90 3RF triamterene-hydrochlorothiazid 37.5-25 mg capsule 1 cap PO DAILY Qty: 90 3RF prednisone 20 mg tablet See Rx Instructions PO DAILY Qty: 30 0RF Rx Instructions: 3 tab for 5 days, 2 tab for 5 days, 1 tab for 5 days orally daily; aspirin 81 mg tablet,delayed release (DR/EC) 81 mg PO DAILY Discharge Orders: Discharge Order (Routine); Ordered 12/23/24 Ordered By: Deb Garland/Other Patient Handouts: Preventing Deep Vein Thrombosis Admission Data Admit Date/Time: 12/01/24 14:18 Attending Provider: Jose Guadalupe Alvarez Admit Provider: Aiden Curry Primary Care Provider: Ross Smith Other Providers: [place]; Rossana Watts [place]; Aiden Curry; Kanwal Guerra; [facility],Home Healthcare; [place],Home [facility]; [facility],HOME HE[facility]; Maxime Reinoso Other Interventions: Discharge Summary Assessment (RN) Last Done: 12/23/24 10:09 Hospital Stay Data Consultations 12/01/24 12:51 ED Decision to Admit Stat 12/05/24 08:10 Consult Gastroenterology Routine 12/14/24 09:28 Consult Vascular Surgery Routine Procedures Performed Operation Date: 12/07/24 16:45 <No data on this case meets the specified criteria> Diagnostic Imagining Performed 12/01/24 14:19 CT tib/fib RT wo con Stat US venous doppler LE RT Stat 12/06/24 08:08 US venous doppler LE RT Routine 12/22/24 14:33 US venous doppler LE RT Routine Pending Results Patient Have Any Pending Studies at Discharge: No Discharge Instructions Given to Patient (Per Discharging Provider) Mr. Randall, You were recently hospitalized secondary to an infection of your right lower leg which has been resolved with IV antibiotics. While you were here you also had an acute GI bleed from an ulcer in your duodenum. This was managed by an endoscopy performed by the domestic helper. Your blood counts have remained stable and it is safe for you to return home now. Medications: Your medication list has been reviewed and reconciled upon discharge to ensure accuracy and continuity of care. An updated list of all your medications is included with your hospital discharge paperwork. Please review this list closely, and make note of any changes. Medications that have been sent in to your pharmacy: Ferrous sulfate: Please take one 325 mg tablet once daily starting tomorrow. Folic acid: Please take one 1mg tablet once daily starting tomorrow. Magnesium oxide: Please take one 400mg tablet twice daily starting this evening. Carafate: Please take 10mL 4 times daily starting this evening. - This can be dose prior to meals and prior to bed time. Pantoprazole: Please take one 40mg tablet twice daily starting this evening. Miconazole Nitrate: Please apply this powder three times daily to your abdominal skin folds. Lidoderm patch: Please apply a patch a patch this evening and remove 12 hours after placing. Each patch should be placed in the evening and removed the following morning. Medications that have been discontinued: Aspirin Lisinopril Triamterene-hydrochlorothiazide Take your medications as instructed; do not skip a dose of your medicines. Make sure all of your doctors know every medicine you are taking (including icwm-zoy-blndnpz medicines, vitamins, and supplements). Call your primary care provider before taking any new medicines (including over- the-counter medicines, vitamins, and supplements), because some of these may interact with your current medications, or may make your symptoms worse. Tell your primary care provider if you cannot afford your medications. Activity: You can do normal everyday activities as your body allows. Take rest breaks if you feel tired. Do not overexert. Stop activity if you have pain, shortness of breath or feel dizzy. Home health is being arranged for you on discharge for physical and occupational therapy at home to help you get stronger. Follow-up appointments: Make an appointment with your primary care physician within one week of discharge. A copy of this summary will be sent to them. Every time you see your primary care physician, or any other doctor, bring your medication list, and a list of questions. At this appointment, you should have orders for your blood counts to be rechecked along with your vitamin levels. Please follow up with gastroenterology on discharge. Their phone number is above if you should have questions or concerns. CONTACT YOUR PRIMARY CARE PROVIDER if you experience any of the following: Shortness of breath or difficulty breathing Fevers or chills Feeling tired with normal activity or experiencing dizziness or fainting Difficulty following your treatment plan, or difficulty taking medications CALL 911 OR GO TO THE EMERGENCY DEPARTMENT if you experience any of the following: Severe abdominal pain or nausea/vomiting Severe chest pain, or chest pain that radiates (moves) to your jaw or arm Sudden, severe shortness of breath or difficulty breathing Thank you for allowing us to participate in your care. Supervising Physician Co-Signing Physician Notes The patient was not seen by me. The chart was reviewed. Case discussed with COLTEN Gilbert. Agree with assessment and plan Total Time Total Time Spent Total Time Spent (In Minutes): 55 Total Time Includes: Examination of the Patient, Discharge Planning, Medication Reconciliation and Communication With Other Providers Coding Level of Care Code 81367 INP/OBS DISCH >30 MIN Diagnoses Upper GI bleeding K92.2 Duodenal ulcer hemorrhage K26.4 Acute blood loss anemia D62 Hypotension I95.9 Cellulitis of right leg L03.115 Sepsis A41.9 ATN (acute tubular necrosis) N17.0 ARACELI (acute kidney injury) N17.9 Diabetes mellitus type 2, uncontrolled Essential hypertension I10 Obesity, Class III, BMI 40-49.9 (morbid obesity) E66.01 Acute deep vein thrombosis of right lower extremity I82.401 Folate deficiency E53.8
== END 2024-12-23 17:56 | disposition home health service (06) | DRG 871 ==
LOC: ED 10:53 → SUATTDRO 14:18 → 2S 14:18 → 3N 12-09 19:42